=== PATIENT | female | born 1945 | race Caucasian/White ===

== ENCOUNTER → 2016-10-18 | Outpatient (CLI) | payer MEDICARE ==
[~2016-10-18] MED LIST: AGRYLIN0.5 MG PO; AGRYLIN1 MG PO; ALBUTEROL2.5 MG/0.5 INH; ALBUTEROL2.5 MG/0.5 NEB; ALPRAZOLAM0.25 M2 PO; ASMANEX TW0.22 MG/A1 IH; ASPIRIN ADULT L81 M1 PO; ASPIRIN81 M1 PO; ASPIRIN81 MG PO; ATARAX25 MG PO; AZO-SULFISOXAZO1 TA1 PO; B-1100 MG PO; BACTRIM 400 MG-1 TAB PO; CEFTIN250 MG PO; COREG3.125 MG PO; DEEP SEA 45 ML45 ML NAS; DELTASONE5 MG PO; DUONEB 3 MG/3 ML3 M1 INH; DYAZIDE 25 MG-31 CAP PO; FUROSEMIDE40 MG PO; HYDROCO/APAP TAB 5-3; KLOR-CON 1010 MEQ PO; LIPITOR40 MG PO; LISINOPRIL2.5 MG PO; LORADAMED10 MG PO; MUCINEX ER600 MG PO; MUCINEX600 MG PO; MULTIPLE VITAMI1 CAP PO; NATURE'S BLEND F1 MG PO; NEBULIZER; NORCO 5-325 TA1 EACH PO; OXYGEN NAS; PERCOCET 325 MG1 TA2 PO; PREDNISONE10 MG PO; PREDNISONE20 MG PO; PROTONIX TR40 MG PO; SINGULAIR10 MG PO; THIAMINE100 MG PO; VICODIN 5/500 505 MG PO; VICODIN 500 MG-1 TAB PO; ZOLOFT25 MG PO; [UNRECOGNIZED DRUG - REMARK]
[2016-10-18 07:58] LABS: ALBUMIN 3.5 gm/dl (3.1-4.5); PHOSPHOROUS 3.7 mg/dL (2.5-4.9); POTASSIUM 4.5 mmol/L (3.5-5.1)
== END | disposition home or self-care (01) ==
LOC: LAB 07:08
PROVIDERS: Internal Medicine Nephrology
DX: N18.9 Chronic kidney disease, unspecified (principal)

== ENCOUNTER → 2016-10-21 | Outpatient (CLI) | payer MEDICARE ==
[2016-10-21 08:12] LABS: ALBUMIN 3.9 gm/dl (3.1-4.5); PHOSPHOROUS 4.9 mg/dL (2.5-4.9); POTASSIUM 4.8 mmol/L (3.5-5.1)
== END | disposition home or self-care (01) ==
LOC: LAB 01:25
PROVIDERS: Internal Medicine Nephrology
DX: N18.9 Chronic kidney disease, unspecified (principal)

== ENCOUNTER → 2016-10-25 | Outpatient (CLI) | payer MEDICARE ==
[2016-10-25 07:50] LABS: ALBUMIN 3.9 gm/dl (3.1-4.5); PHOSPHOROUS 3.8 mg/dL (2.5-4.9); POTASSIUM 5.9 mmol/L (3.5-5.1)
== END | disposition home or self-care (01) ==
LOC: LAB 00:58
PROVIDERS: Internal Medicine Nephrology
DX: N18.9 Chronic kidney disease, unspecified (principal)

== ENCOUNTER 2016-10-27 12:49 | Inpatient (IN) | payer MEDICARE ==
[~2016-10-27] VITALS: Ht 152.4 cm; Wt 56.8 kg
--- NOTE | ~2016-10-27 | PR ---
[place], [place] PROGRESS NOTE NAME: [id number] UNIT #: [id number] ROOM: 505 DOCTOR: OSMANI RIVAS MD,ARASH BIRTHDATE: [birth year] DOS: 10/29/2016 SUBJECTIVE: She has been noted more comfortable at this time with reduction of symptoms of shortness of breath and cough. There were no symptoms of chest pain or any abdominal pain. CBC that was repeated yesterday still shows severe leukopenia. OBJECTIVE: VITAL SIGNS: The temperature noted normal, respiratory rate 18, heart rate of 87, blood pressure 126/50. Her pulse oxygen saturation on 3 liters nasal cannula 99% saturation recorded. HEENT: Shows no acute change. NECK: Supple. CARDIOVASCULAR SYSTEM: S1, S2 audible. LUNGS: Noted without any crackles. Expiratory wheezing was present. ABDOMEN: Soft, nontender. LABORATORY DATA: The patient's sputum culture of the patient, preliminary showing normal zion, final culture results were pending. Renal function panel: BUN 51, creatinine 1.87, glucose 160, CO2 of 19. CBC this morning, WBC count 4.4, hemoglobin 7.9, hematocrit of 25.9 with platelet count elevated to 543,000. IMPRESSION: 1. The patient with reduction of the leukopenia was noted still noted with anemia. 2. Acute exacerbation of chronic obstructive pulmonary disease, acute tracheobronchitis. PLAN OF TREATMENT: Monitoring for the leukopenia which is most likely induced by the infection. Monitor respiratory status closely. Other supportive plan of management as in progress. Continue the current dose of corticosteroids. ARASH KEEN MD CM:PNTRANS [id number] ARASH RIVAS MD 10/29/16 1442 interface
--- NOTE | ~2016-10-27 | PR ---
[place], [place] PROGRESS NOTE NAME: JULIANE AMEZCUA UNIT #: [id number] ROOM: 505 DOCTOR: ARASH TELLO MD BIRTHDATE: [birth year] DOS: 10/30/2016 SUBJECTIVE: The patient has been noted comfortable at this time without any distress. She has been noted without any symptoms of chest pain or any abdominal pain. All the respiratory symptoms, which have been noted significantly improved in the past couple of days. OBJECTIVE: VITAL SIGNS: For the patient which has been recorded showed the temperature of the patient recorded as normal. The heart rate for this patient was noted as heart rate of 77, blood pressure 138/50. The pulse oxygen saturation of the patient recorded on 3 liters nasal cannula 96% saturation. HEENT: Shows no new change. NECK: Supple. CARDIOVASCULAR SYSTEM: S1, S2 is audible. LUNGS: The patient was noted without any wheezing or crackles. ABDOMEN: Soft, nontender. LABORATORY DATA: CBC of this morning, hemoglobin 9.9, hematocrit 31.3, platelet count 589,000, normal WBC count. BMP: BUN 59, creatinine 1.70. Culture of the sputum the patient was noted as normal zion. IMPRESSION: 1. Progressive resolution of the acute exacerbation of chronic obstructive pulmonary disease for this patient as well. 2. Resolved leukopenia as well. 3. Anemia with current blood transfusion for this patient as well. 4. The patient with resolving acute kidney injury, gradually as well. PLAN OF TREATMENT: From the pulmonary standpoint, the patient could be considered for home discharge on oral medications. Solu-Medrol dose will be decreased to Solu-Medrol 40 mg daily dosing. Continue other previous treatment plan of management. Usual care. Other supportive care and therapies. [place], [place] PROGRESS NOTE NAME: JULIANE AMEZCUA UNIT #: [id number] ROOM: 505 DOCTOR: ARASH TELLO MD BIRTHDATE: [birth year] ARASH KEEN MD CM:PNTRANS 1223 ARASH RIVAS MD 10/30/16 2212 interface
--- NOTE | ~2016-10-27 | CON ---
[place], [place] REPORT OF CONSULTATION NAME: JULIANE AMEZCUA [facility] #: [id number] UNIT #: [id number] ROOM: 505 DOCTOR: TAWANDA MADDEN MD BIRTHDATE: [birth year] DOS: 10/28/16 REPORT TO THE SCIENTIFIC DIRECTOR HISTORY OF PRESENT ILLNESS: The patient is a 71-year-old [place] woman presented to the emergency room because of increasing coughing and shortness of breath, which has been going on for the past 2 days. She had thickened, greasy, yellowish sputum and subsequently admitted. On routine CBC examination, she was found to be leukopenic, anemic and thrombocytosis and consulted for further evaluation and management. PAST MEDICAL HISTORY: Significant for history of centrilobular emphysema, history of bacterial pneumonia, chronic kidney disease stage 4-5, diverticulosis, generalized anxiety disorder, history of bronchial asthma. PAST SURGICAL HISTORY: D and C, tubal ligation, appendectomy, partial sigmoid colectomy, right knee replacement, left cataract extraction, dialysis catheter insertion, MediPort has been placed in the right chest. SOCIAL HISTORY: , has 4 children. smoking since teenager, 1 packet of cigarettes per day. Denies any drug abuse or alcohol. FAMILY HISTORY: Positive for aneurysm, cancer. MEDICATIONS: Aspirin, Lipitor, Singulair, Dulera, Mucinex, IV Solu-Medrol, Coreg, Levaquin. ALLERGIES: No allergies. REVIEW OF SYSTEMS: CONSTITUTIONAL: No chills. No fatigue. No fever. No loss of appetite. No night sweats. No weakness. No weight loss. HEENT: No trouble swallowing. No loss of smell. No loss of hearing. No double vision. No pain. No discharge. ENT AND RESPIRATORY: No wheeze. No sore throat. No change in voice. No hearing loss. No nose bleed. No cough. No trouble breathing through nose. No shortness of breath. No coughing up blood. No epistaxis. CARDIOVASCULAR: No chest pain. No dizziness. No irregular heartbeat. No leg edema. No pain in legs while walking. No palpitations. No shortness of breath. DERMATOLOGIC: No acne. No hives. No laceration. No mole. No rash. ENDOCRINE: No cold intolerance. No diabetes. No fatigue. No hot flashes. No polydipsia. No polyuria. No urinating frequently. No weight loss. HEMATOLOGIC AND LYMPH: No fatigue. No easy bruising. GASTROENTEROLOGIC: No change in bowel habits. No indigestion. No frequent bloating. No vomiting blood. No abdominal cramping. No nausea. No heartburn. No vomiting. No abdominal pain. No dysphagia. No diarrhea. No constipation. No blood in stool. FEMALE REPRODUCTIVE: No vaginal itching. No difficulty urinating. No heavy periods. No dyspareunia. No sexually active. No dysmenorrhea. No pelvic pain. [place], [place] REPORT OF CONSULTATION NAME: JULIANE AMEZCUA UNIT #: [id number] ROOM: [facility] DOCTOR: TAWANDA MADDEN MD BIRTHDATE: [birth year] No breast pain. No nipple discharge. No abnormal vaginal discharge. No hot flashes. MUSCULOSKELETAL: No back pain. No muscle pain or weakness. No neck pain. No tingling/numbness. No swelling/bruising. No osteoporosis treatment. OPHTHALMOLOGIC: No double vision. No diminished vision. No loss of vision. UROLOGIC: No dysuria. No frequent nighttime urination. No irregular periods. No pain with urination. No difficulty urinating. No blood in urine. No frequent urination. No urinary incontinence. NEUROLOGIC: No loss of sensation in specific body area. No vertigo. No burning pain in feet. No trouble with balance. No trouble with coordination. No loss of consciousness. No loss of feeling/power. No confusion. No headache. No tingling/numbness. PSYCHOLOGIC: No tinnitus. No headaches. No shortness of breath. No weight decrease. No nausea. No vomiting. No abdominal discomfort. No constipation. No diarrhea. No depression. No anxiety. PHYSICAL EXAMINATION: GENERAL: Pleasant woman in no apparent distress. VITAL SIGNS: Stable. She is afebrile. HEENT: Oral mucosa appears intact. The external ears are normal in appearance. Nares are patent without lesions, exudates, erythema, or inflammation. Tongue is symmetrical. Uvula is midline. NECK AND THYROID: Neck supple without palpable masses. Trachea is midline. No thyromegaly. No carotid bruit or JVD. BREASTS: Normal. Nipples unremarkable. No drainage. No lumps felt on either side. HEART: Normal S1, S2, without significant murmur, rub, or gallop. LUNGS: Show bilateral expiratory wheeze.. ABDOMEN: No costovertebral angle tenderness. Soft. No organomegaly or masses. Nontender. No hernias present. Liver and spleen are not palpable. LYMPHATIC: No adenopathy noted in the cervical, supraclavicular, axillary, or inguinal regions. NEUROLOGIC: Nonfocal. Oriented to person, place, and time. MENTAL STATUS: Appropriate for mood and affect. PERIPHERAL PULSES: No varicosities. Femoral and pedal pulses are palpable. EXTREMITIES: Without cyanosis, clubbing, or edema. No gross anomalies. LABORATORY DATA: White count of 4.4, hemoglobin 7.9, hematocrit 25.9, MCV 104.9, platelet count of 543,000. From 10/28/2016, white count of 1.6, hemoglobin 8.2, hematocrit 27.0, MCV 104.2. ASSESSMENT: 1. Leukopenia is resolving, could be secondary to medications/sepsis/bone marrow suppression. 2. Anemia of unknown etiology, probably chronic disease. 3. Thrombocytosis, reactive. 4. Macrocytosis. PLAN: I had detailed discussion with the patient about different causes of above. We will go ahead and do workup for that with peripheral smears. I [place], [place] REPORT OF CONSULTATION NAME: JULIANE AMEZCUA UNIT #: [id number] ROOM: [facility] DOCTOR: TAWANDA MADDEN MD BIRTHDATE: [birth year] expect the platelet count to get better once her overall condition improves. If not, then further intervention and depending upon the workup, further intervention. Will be also giving her a unit of blood. Ample time was given to the patient to ask me questions and follow. Thanks for consulting and letting me participate in the care of this interesting patient. TAWANDA MADDEN MD CM:CONSTR:REPORT OF CONSULTATION 1429 BED 10/30/16 1234 ISHAN ACOSTA [facility].BED
--- NOTE | ~2016-10-27 | PR ---
[place], [place] PROGRESS NOTE NAME: JULIANE AMEZCUA [facility] #: [id number] UNIT #: [id number] ROOM: 505 DOCTOR: TAWANDA MADDEN MD BIRTHDATE: [birth year] DOS: 10/29/2016 SUBJECTIVE: The patient is doing better. Awake, alert and responsive. REVIEW OF SYSTEMS HEENT: No trouble swallowing. No double vision. No loss of vision. No pain. ENT AND RESPIRATORY: No wheeze. No change in voice. No cough. No shortness of breath. No coughing up blood. No epistaxis. CARDIOLOGIC: No chest pain. No dizziness. No irregular heartbeat. No leg edema. No palpitations. No shortness of breath. HEMATOLOGIC AND LYMPH: No past transfusion. No fatigue. No loss of appetite. No easy bruising. GASTROENTEROLOGIC: No change in bowel habits. No vomiting blood. No abdominal cramping. No nausea. No vomiting. No diarrhea. No constipation. No blood in stool. FEMALE REPRODUCTIVE: No dyspareunia. No pelvic pain. MUSCULOSKELETAL: No back pain. No muscle pain or weakness. No tingling/numbness. UROLOGIC: No pain with urination. No difficulty urinating. No frequent urination. NEUROLOGIC: No burning pain in feet. No trouble with coordination. No loss of consciousness. No headache. No tingling/numbness. No memory loss. PHYSICAL EXAMINATION: GENERAL: Pleasant woman in no apparent distress. VITAL SIGNS: Blood pressure 143/59, respirations 18, pulse 86, temperature 98.4. HEENT: Normocephalic, atraumatic NECK AND THYROID: Supple. No JVD, thyromegaly, or lymphadenopathy. HEART: Normal S1, S2. Regular rate and rhythm. LUNGS: Clear to auscultation and percussion. ABDOMEN: Soft. Nontender, nondistended. Bowel sounds present. EXTREMITIES: Normal ROM. No clubbing. No edema. LABORATORY DATA: White count of 4.4, hemoglobin 7.9, hematocrit 25.9, MCV 104.9, platelet count of 543. IMPRESSION: 1. Neutropenia, which is getting better. 2. Anemia, probably of chronic disease. 3. Thrombocytosis, probably reactive. PLAN: We will give a unit of packed RBC. In addition keep watch her platelet count. If she continues to increase then further intervention, otherwise close followup. Ample time was given for the patient to ask me questions. [place], [place] PROGRESS NOTE NAME: DELANEY AMEZCUAVELIA Fong UNIT #: [id number] ROOM: 505 DOCTOR: TAWANDA MADDEN MD BIRTHDATE: [birth year] TAWANDA MADDEN MD CM:PNTRANS 1 TAWANDA MADDEN MD 10/31/16 0943 interface
--- NOTE | ~2016-10-27 | CON ---
[place], [place] REPORT OF CONSULTATION NAME: JULIANE AMEZCUA [facility] #: [id number] UNIT #: [id number] ROOM: 505 DOCTOR: ARASH TELLO MD BIRTHDATE: [birth year] DOS: 10/28/2016 CONSULTATION REQUESTED BY: Hospitalist services. REASON FOR CONSULTATION: To assess the patient for symptoms of increased shortness of breath. HISTORY OF PRESENT ILLNESS: A 71-year-old white female who has been admitted to the hospital. The patient came into the Emergency Room when she started with symptoms of increased coughing, which has been present for the past few days. The symptoms have been noted ____ sputum expectoration, green to yellowish in color, and thick at times. The patient denies symptoms of chest pain. Denies symptoms of hemoptysis. The patient has been noted with intermittent hemodialysis, which has been given based on the kidney functions as per the patient. The patient denies any symptoms of chest trauma. REVIEW OF SYSTEMS: CONSTITUTIONAL: Fatigue and tiredness described. No symptoms of fever or chills. EYES: Denies any burning, redness, or tenderness. EARS, NOSE, AND THROAT: No sore throat, hoarseness, otalgia, postnasal drainage. CARDIOVASCULAR: Denies anginal pain, edema, or pain of the lower extremities. GASTROINTESTINAL: Denies dysphagia, nausea, vomiting, diarrhea, abdominal pain, hematemesis, melena, or hematochezia. GENITOURINARY: The patient with chronic kidney disease for the patient with intermittent hemodialysis provided as per patient based on kidney function assessment. She has not received any hemodialysis for the past couple of weeks as it was needed as per patient. She denies symptoms of suprapubic pain or hematuria. MUSCULOSKELETAL: Denies any acute joint pain, redness, or tenderness. SKIN: No lesions or rashes. CENTRAL NERVOUS SYSTEM: Denies dizziness, headache, diplopia, syncopal episodes, or tingling sensation of the extremities. Remaining systems were reviewed with the patient, they were noted all negative. PAST MEDICAL HISTORY: 1. Past hospitalization for the patient noted in April 2016. The patient was admitted at this time and treated for the right pleural fluid with acute bacterial pneumonia as well as acute kidney injury with history of chronic kidney disease. 2. History of centrilobular emphysema. 3. Chronic kidney disease, stage 4-5. 4. Diverticulosis. 5. General anxiety disorder, depression, and panic attack history. 6. Previous history of pneumonia. 7. History of bronchial asthma as well. PAST SURGICAL HISTORY: Reported: [place], [place] REPORT OF CONSULTATION NAME: JULIANE AMEZCUA UNIT #: [id number] ROOM: [facility] DOCTOR: ARASH TELLO MD BIRTHDATE: [birth year] 1. Tubal ligation. 2. D and C. 3. Appendectomy. 4. Partial sigmoid colectomy for this patient. 5. Right knee replacement. 6. Left cataract extraction. 7. Dialysis catheter insertion and removal later on. Currently, has an AV fistula for the patient of the left upper extremity. 8. MediPort in place in the right chest for this patient for peripheral venous access. SOCIAL HISTORY: The patient is , has 4 children. Smoking was noted since teenager, smoked at least a pack of cigarettes per day. Denies any alcohol or illicit drug use or any occupation related pulmonary exposure history. FAMILY HISTORY: Reported for cancer and aneurysm. MEDICATIONS: Current administered medication use noted use of aspirin, Lipitor, Singulair, Dulera, Mucinex 1200 b.i.d., IV Solu-Medrol 60 mg b.i.d., Coreg, DuoNeb, Levaquin, and other p.r.n. medications administration. DRUG ALLERGIES: Noted for no known drug allergies. PHYSICAL EXAMINATION: GENERAL: A 71-year-old female who has been currently noted awake and alert without any distress. Height of 5 feet, weight of 125 pounds, BMI 24.4. VITAL SIGNS: For the patient which has been recorded shows normal temperature, respiratory rate 18-20, heart rate of 104-92, blood pressure 140/64-120/58. Pulse oxygen saturation noted on 4 L nasal cannula 97% saturation. The intake 320, output 500 mL, negative fluid balance of ____ mL since admission. HEENT: Mild obesity. Head was atraumatic. Eyes nonicterus. NECK: Supple. CARDIOVASCULAR: S1, S2 is audible. LUNGS: For this patient was noted with moderate reduction of the breath sounds were noted bilaterally with expiratory wheezing. There were no crackles heard. ABDOMEN: Flat, soft, nontender. Bowel sounds present. CENTRAL NERVOUS SYSTEM: The patient was noted without any gross focal neurologic deficit. Cranial nerves 2-12 intact. SKIN: No lesions or rashes. LABORATORY DATA: CBC of the patient that was done on admission on 10/27/2016, hemoglobin 8.5, hematocrit 28.3, WBC count normal, platelet count mildly elevated to 515,000. Lactic acid yesterday on admission was 0.4, normal. CMP yesterday on admission, BUN 41, creatinine 1.76. Carbon dioxide 20. The CBC of the patient that was done for the patient this morning for the patient was noted with WBC count of 1.5, hemoglobin of 7.9, hematocrit 26.0, platelet count 448,000 with 48% lymphocytes and 84% segmented neutrophils. The CMP of patient that was done this morning, BUN 45, creatinine 1.92. Carbon dioxide 20. The troponin for the patient was noted yesterday as normal. Urinalysis for the [place], [place] REPORT OF CONSULTATION NAME: JULIANE AMEZCUA UNIT #: [id number] ROOM: [facility] DOCTOR: OSMANI RIVAS MD,[facility] BIRTHDATE: [birth year] patient from yesterday was essentially noted a benign finding. Chest x-ray of the patient, 1 view, which was done for this patient on admission shows MediPort in place for the venous access without any acute pulmonary infiltration. IMPRESSION: 1. The patient who has been noted with acute exacerbation of chronic obstructive pulmonary disease with acute tracheobronchitis as well with progressive symptoms in the last few days. 2. Leukopenia for this patient, which was noted essentially as well as anemia for this patient, etiology unclear, rule out lab error as well. The leukopenia if truly noted may be related to the current viral or bacterial infection superimposed as well with bone marrow suppression. 3. The patient with chronic kidney disease for the patient, stage 4, for the patient noted with elevation of creatinine today with possible component of acute kidney injury secondary to volume depletion would be likely. 4. Poor peripheral venous access for the patient with a MediPort in place as well. 5. History of past nicotine dependence and the patient has stopped the tobacco use for the patient since 04/2016. PLAN OF TREATMENT: Repeat labs for the patient, CBC again this morning. Blood cultures have been already taken for the patient yesterday. The sputum culture was pending, which has been ordered. Bronchodilators administration. Continue current dose of Solu-Medrol for this patient with the reduction to be started from tomorrow based on improvement in the symptoms. Continue the patient on Levaquin. There was no active pneumonia noted on the current chest x-ray. Further treatment changes will be done based on the progression of the illness. Continue bronchodilators administration. Monitor kidney functions closely as well. Thanks for allowing me to participate in the care of this patient. ARASH KEEN MD CM:CONSTR:REPORT OF CONSULTATION 1118 10/28/16 1527 interface
--- NOTE | ~2016-10-27 | PR ---
[place], [place] PROGRESS NOTE NAME: JULIANE AMEZCUA [facility] #: [id number] UNIT #: [id number] ROOM: 505 DOCTOR: TAWANDA MADDEN MD BIRTHDATE: [birth year] DOS: 10/30/2016 SUBJECTIVE: The patient is doing better. She is awake, alert and responsive. REVIEW OF SYSTEMS: HEENT: No trouble swallowing. No double vision. No loss of vision. No pain. ENT AND RESPIRATORY: No wheeze. No change in voice. No cough. No shortness of breath. No coughing up blood. No epistaxis. CARDIOLOGIC: No chest pain. No dizziness. No irregular heartbeat. No leg edema. No palpitations. No shortness of breath. HEMATOLOGIC AND LYMPH: No past transfusion. No fatigue. No loss of appetite. No easy bruising. GASTROENEROLOGIC: No change in bowel habits. No vomiting blood. No abdominal cramping. No nausea. No vomiting. No diarrhea. No constipation. No blood in stool. FEMALE REPRODUCTIVE: No dyspareunia. No pelvic pain. MUSCULOSKELETAL: No back pain. No muscle pain or weakness. No tingling/numbness. UROLOGIC: No pain with urination. No difficulty urinating. No frequent urination. NEUROLOGIC: No burning pain in feet. No trouble with coordination. No loss of consciousness. No headache. No tingling/numbness. No memory loss. PHYSICAL EXAMINATION: GENERAL: She is a pleasant woman in no apparent distress. VITAL SIGNS: Stable. She is afebrile. HEENT: Normocephalic, atraumatic NECK AND THYROID: Supple. No JVD, thyromegaly, or lymphadenopathy. HEART: Normal S1, S2. Regular rate and rhythm. LUNGS: Clear to auscultation and percussion. ABDOMEN: Soft. Nontender, nondistended. Bowel sounds present. EXTREMITIES: Normal ROM. No clubbing. No edema. LABORATORY DATA: White count of 8.8, hemoglobin 9.9, hematocrit 31.3, platelet count of 589,000. ASSESSMENT: 1. Neutropenia, which has resolved. 2. Thrombocytosis, probably reactive. 3. Anemia, probably of chronic disease. PLAN: She will continue broad spectrum antibiotics management. I will keep a close watch on her counts if they start getting higher or lowered then further intervention, otherwise follow as an outpatient. Discuss with the patient in detail. [place], [place] PROGRESS NOTE NAME: JULIANE AMEZCUA Ajit UNIT #: [id number] ROOM: [facility] DOCTOR: TAWANDA MADDEN MD BIRTHDATE: [birth year] TAWANDA MADDEN MD CM:PNTRANS 1155 40 TAWANDA MADDEN MD 10/30/162041 interface
[2016-10-27 12:49] VITALS: BP 148/64
[2016-10-27 13:23] LABS: BASO % 0.3 % (0.0-1.0); EOS # 0.3 10*3/uL (0.0-0.4); EOS % 5.2 % (1.0-4.0); HEMATOCRIT 28.3 % (37.0-47.0); HEMOGLOBIN 8.5 g/dl (12.0-16.0); LYMPH # 0.7 10*3/uL (1.3-4.4); LYMPH % 10.7 % (27.0-41.0); MEAN CELL VOLUME 105.6 fl (81.0-99.0); MEAN CORPUSCULAR HGB 31.7 pg (27.0-31.0); MONO # 0.6 10*3/uL (0.1-1.0); MONO % 9.6 % (3.0-9.0); NEUT # 4.8 10*3/uL (2.3-7.9); PLATELET COUNT AUTOMATED 515 10*3/uL (130-400); RED BLOOD COUNT 2.68 10*6/uL (4.10-5.10); RED CELL DISTRI WIDTH 14.7 % (0-14.5); WHITE BLOOD COUNT 6.5 10*3/uL (4.8-10.8)
[2016-10-27 13:41] LABS: ALBUMIN 3.3 gm/dl (3.1-4.5); ALKALINE PHOSPHATASE 84 U/L (45-117); BILIRUBIN, TOTAL 0.4 mg/dl (0.2-1.0); BUN 41 mg/dl (7-24); CARBON DIOXIDE 20 mmol/L (21-32); CHLORIDE 109 mmol/L (98-107); EST GLOM FILT AFRICAN AMERICAN 35 ml/min; GLUCOSE 84 mg/dL (65-99); MAGNESIUM 1.7 mg/dL (1.5-2.1); POTASSIUM 4.7 mmol/L (3.5-5.1); SGOT/AST 20 IU/L (3-35); SGPT/ALT 25 U/L (12-78); SODIUM 141 mmol/L (136-145); TOTAL PROTEIN 6.2 gm/dL (6.4-8.2)
[2016-10-27 13:46] LABS: TROPONIN I < 0.015 ng/ml (<0.045)
[2016-10-27 14:28] VITALS: BP 142/84
[2016-10-27 14:58] VITALS: BP 130/54
[2016-10-27 15:55] VITALS: BP 133/41
[2016-10-27 20:00] VITALS: BP 121/43
[2016-10-27 20:38] LABS: BILIRUBIN NEGATIVE (NEGATIVE); BLOOD NEGATIVE (NEGATIVE); CLARITY CLEAR (CLEAR); COLOR YELLOW (YELLOW); GLUCOSE NEGATIVE (NEGATIVE); KETONE NEGATIVE (NEGATIVE); LEUKO ESTERASE NEGATIVE (NEGATIVE); NITRITE NEGATIVE (NEGATIVE); PROTEIN TRACE (NEGATIVE); UROBILINOGEN 0.2 E.U./dl (0.2-1.0)
[2016-10-27 20:51] LABS: MUCOUS TRACE; RBC 0-2 rbc/hpf (0-2); URINE REFLEX COMMENT NO (NO)
[2016-10-28] VITALS: BP 120/58
[2016-10-28 06:28] LABS: HEMOGLOBIN 7.9 g/dl (12.0-16.0); MEAN CELL VOLUME 106.1 fl (81.0-99.0); MEAN CORPUSCULAR HGB 32.2 pg (27.0-31.0); MEAN CORPUSCULAR HGB CONC 30.4 g/dl (33.0-37.0); MEAN PLATELET VOLUME 10.4 fl (9.6-12.3); PLATELET COUNT AUTOMATED 448 10*3/uL (130-400); RED BLOOD COUNT 2.45 10*6/uL (4.10-5.10); RED CELL DISTRI WIDTH 14.8 % (0-14.5)
[2016-10-28 06:40] LABS: ALBUMIN 2.9 gm/dl (3.1-4.5); BILIRUBIN, TOTAL 0.4 mg/dl (0.2-1.0); POTASSIUM 4.7 mmol/L (3.5-5.1)
[2016-10-28 06:48] LABS: THYROID STIM HORMONE (HS) 0.657 uIU/ml (0.358-4.75)
[2016-10-28 06:53] LABS: HYPOCHROMIA MODERATE; LYMPHOCYTE # 0.2 10*3/uL (1.3-4.4); METAMYELOCYTES 1 % (0-0); NEUTROPHIL # 1.3 10*3/uL (2.3-7.9); NEUTROPHILS 84 % (47-73); OVALOCYTES MODERATE; PLATELET SUFFICIENCY HIGH (NORMAL); SCHISTOCYTES FEW; TEAR DROP CELLS FEW; TOTAL CELLS COUNTED 100 #CELLS
[2016-10-28 06:55] LABS: WHITE BLOOD COUNT 1.5 10*3/uL (4.8-10.8)
[2016-10-28 07:22] LABS: HEMOGLOBIN A1c 5.6 % (4.8-5.6)
[2016-10-28 08:00] VITALS: BP 142/78; BP 148/78
[2016-10-28 12:00] VITALS: BP 117/84
[2016-10-28 12:10] LABS: HEMOGLOBIN 8.2 g/dl (12.0-16.0); MEAN CELL VOLUME 104.2 fl (81.0-99.0); MEAN CORPUSCULAR HGB 31.7 pg (27.0-31.0); MEAN CORPUSCULAR HGB CONC 30.4 g/dl (33.0-37.0); MEAN PLATELET VOLUME 10.1 fl (9.6-12.3); PLATELET COUNT AUTOMATED 508 10*3/uL (130-400); RED BLOOD COUNT 2.59 10*6/uL (4.10-5.10); RED CELL DISTRI WIDTH 14.6 % (0-14.5)
[2016-10-28 12:33] LABS: LYMPHOCYTE # 0.2 10*3/uL (1.3-4.4); METAMYELOCYTES 1 % (0-0); NEUTROPHIL # 1.3 10*3/uL (2.3-7.9); NEUTROPHILS 81 % (47-73); TOTAL CELLS COUNTED 100 #CELLS
[2016-10-28 12:34] LABS: OVALOCYTES MODERATE; PLATELET SUFFICIENCY HIGH (NORMAL); SCHISTOCYTES FEW
[2016-10-28 12:38] LABS: WHITE BLOOD COUNT 1.6 10*3/uL (4.8-10.8)
[2016-10-28 13:42] LABS: IRF 1.5 % (2.4-13.3); RET-He 31.3 pg (32.1-37.9); RETICULOCYTE % 0.52 % (0.50-2.50)
[2016-10-28 13:57] LABS: IRON 133 ug/dL (50-170); IRON SATURATION 93 %; UIBC 9 ug/dL (110-365)
[2016-10-28 16:19] VITALS: BP 121/51
[2016-10-28 20:00] VITALS: BP 142/53
[2016-10-29] VITALS (13 sets, daily range): BP systolic 113–155; BP diastolic 50–69
[2016-10-29 06:08] LABS: HEMATOCRIT 25.9 % (37.0-47.0); HEMOGLOBIN 7.9 g/dl (12.0-16.0); LYMPH # 0.2 10*3/uL (1.3-4.4); LYMPH % 5.5 % (27.0-41.0); MEAN CELL VOLUME 104.9 fl (81.0-99.0); MEAN CORPUSCULAR HGB CONC 30.5 g/dl (33.0-37.0); MEAN PLATELET VOLUME 10.5 fl (9.6-12.3); MONO # 0.2 10*3/uL (0.1-1.0); MONO % 4.3 % (3.0-9.0); PLATELET COUNT AUTOMATED 543 10*3/uL (130-400); RED BLOOD COUNT 2.47 10*6/uL (4.10-5.10); RED CELL DISTRI WIDTH 14.3 % (0-14.5); WHITE BLOOD COUNT 4.4 10*3/uL (4.8-10.8)
[2016-10-29 06:21] LABS: ALBUMIN 3.1 gm/dl (3.1-4.5); PHOSPHOROUS 3.4 mg/dL (2.5-4.9); POTASSIUM 4.7 mmol/L (3.5-5.1)
[2016-10-29 21:29] LABS: URINE CREATININE TIMED 428.4 mg/24HRS (600-1800)
[2016-10-30 06:51] LABS: POTASSIUM 5.4 mmol/L (3.5-5.1)
[2016-10-30 06:56] LABS: HEMATOCRIT 31.3 % (37.0-47.0); HEMOGLOBIN 9.9 g/dl (12.0-16.0); MEAN CELL VOLUME 89.9 fl (81.0-99.0); MEAN CORPUSCULAR HGB 28.4 pg (27.0-31.0); MEAN CORPUSCULAR HGB CONC 31.6 g/dl (33.0-37.0); MEAN PLATELET VOLUME 10.3 fl (9.6-12.3); PLATELET COUNT AUTOMATED 589 10*3/uL (130-400); RED BLOOD COUNT 3.48 10*6/uL (4.10-5.10); WHITE BLOOD COUNT 8.8 10*3/uL (4.8-10.8)
[2016-10-30 07:30] LABS: LYMPHOCYTE # 0.2 10*3/uL (1.3-4.4); MONOCYTE # 0.1 10*3/uL (0.1-1.0); NEUTROPHIL # 8.5 10*3/uL (2.3-7.9); NEUTROPHILS 97 % (47-73); TOTAL CELLS COUNTED 100 #CELLS
[2016-10-30 07:31] LABS: OVALOCYTES FEW; TEAR DROP CELLS FEW
[2016-10-30 07:33] LABS: ACANTHOCYTES FEW
[2016-10-30 07:35] LABS: BURR CELLS FEW
[2016-10-30 07:36] LABS: HYPOCHROMIA SLIGHT; PLATELET SUFFICIENCY HIGH (NORMAL)
[2016-10-30 08:00] VITALS: BP 138/50
[2016-10-30 12:00] VITALS: BP 120/46
[2016-10-30] MEDS ORDERED: MUCINEX ER600 MG PO (12:01)
[2016-10-30] MEDS ORDERED: PREDNISONE10 MG PO (12:01)
[2016-10-30] MEDS ORDERED: LEVAQUIN500 M2 PO (12:01)
[2016-10-30] MEDS ORDERED: LASIX40 MG PO (12:50)
[2016-10-30 16:00] VITALS: BP 140/57
== END 2016-10-30 18:59 | disposition home or self-care (01) | DRG 193 ==
LOC: ED 12:49 → EDHOLD 14:20 → 5E 14:20
PROVIDERS: Emergency Medicine; Family Medicine Adult Medicine; Internal Medicine; Internal Medicine Critical Care Medicine; Internal Medicine Hematology & Oncology; Internal Medicine Nephrology; Student in an Organized Health Care Education/Training Program
PROC: 30243N1 Transfusion of Nonautologous Red Blood Cells into Central Vein, Percutaneous Approach (ICD-10-PCS; principal; 2016-10-29)
DX: J18.9 Pneumonia, unspecified organism (principal); J96.21 Acute and chronic respiratory failure with hypoxia; N17.9 Acute kidney failure, unspecified; E87.2 Acidosis; N18.6 End stage renal disease; I12.0 Hypertensive chronic kidney disease with stage 5 chronic kidney disease or end stage renal disease; J44.0 Chronic obstructive pulmonary disease with (acute) lower respiratory infection; J44.1 Chronic obstructive pulmonary disease with (acute) exacerbation; Z99.81 Dependence on supplemental oxygen; E87.5 Hyperkalemia; J45.909 Unspecified asthma, uncomplicated; D50.9 Iron deficiency anemia, unspecified; K57.90 Diverticulosis of intestine, part unspecified, without perforation or abscess without bleeding; F41.8 Other specified anxiety disorders; J20.9 Acute bronchitis, unspecified; D47.3 Essential (hemorrhagic) thrombocythemia; E78.5 Hyperlipidemia, unspecified; Z96.651 Presence of right artificial knee joint; Z87.01 Personal history of pneumonia (recurrent); Z98.51 Tubal ligation status; Z98.49 Cataract extraction status, unspecified eye; Z80.1 Family history of malignant neoplasm of trachea, bronchus and lung; Z79.82 Long term (current) use of aspirin; Z79.899 Other long term (current) drug therapy

== ENCOUNTER → 2016-11-04 | Outpatient (CLI) | payer MEDICARE ==
[~2016-11-04] MED LIST changes: +LASIX40 MG PO; +LEVAQUIN500 M2 PO
[2016-11-04 12:03] LABS: ALBUMIN 3.9 gm/dl (3.1-4.5); PHOSPHOROUS 4.4 mg/dL (2.5-4.9)
== END | disposition home or self-care (01) ==
LOC: LAB 10:42
PROVIDERS: Internal Medicine Nephrology
DX: N17.9 Acute kidney failure, unspecified (principal)

== ENCOUNTER → 2016-11-11 | Outpatient (CLI) | payer MEDICARE ==
[2016-11-11 09:39] LABS: POTASSIUM 3.5 mmol/L (3.5-5.1)
[2016-11-11 09:48] LABS: ALBUMIN 3.7 gm/dl (3.1-4.5); PHOSPHOROUS 5.3 mg/dL (2.5-4.9)
== END | disposition home or self-care (01) ==
LOC: LAB 01:51
PROVIDERS: Internal Medicine Nephrology
DX: N17.9 Acute kidney failure, unspecified (principal)

== ENCOUNTER → 2016-12-02 | Outpatient (CLI) | payer MEDICARE ==
[~2016-12-02] MED LIST changes: +SODIUM BICARBO650 MG PO
[2016-12-02 14:11] LABS: PHOSPHOROUS 3.3 mg/dL (2.5-4.9); POTASSIUM 3.9 mmol/L (3.5-5.1)
[2016-12-02 14:26] LABS: ALBUMIN 3.3 gm/dl (3.1-4.5)
== END | disposition home or self-care (01) ==
LOC: LAB 13:16
PROVIDERS: Internal Medicine Nephrology
DX: N18.4 Chronic kidney disease, stage 4 (severe) (principal)

== ENCOUNTER → 2017-01-02 | Outpatient (CLI) | payer MEDICARE ==
[2017-01-02 11:04] LABS: BASO % 0.6 % (0.0-1.0); EOS # 0.3 10*3/uL (0.0-0.4); EOS % 4.5 % (1.0-4.0); HEMATOCRIT 26.2 % (37.0-47.0); HEMOGLOBIN 8.1 g/dl (12.0-16.0); LYMPH # 1.3 10*3/uL (1.3-4.4); LYMPH % 19.6 % (27.0-41.0); MEAN CELL VOLUME 89.7 fl (81.0-99.0); MEAN CORPUSCULAR HGB 27.7 pg (27.0-31.0); MEAN CORPUSCULAR HGB CONC 30.9 g/dl (33.0-37.0); MEAN PLATELET VOLUME 10.5 fl (9.6-12.3); MONO # 0.6 10*3/uL (0.1-1.0); MONO % 8.4 % (3.0-9.0); NEUT # 4.5 10*3/uL (2.3-7.9); NEUT % 66.6 % (47.0-73.0); PLATELET COUNT AUTOMATED 612 10*3/uL (130-400); RED BLOOD COUNT 2.92 10*6/uL (4.10-5.10); RED CELL DISTRI WIDTH 21.2 % (0-14.5); WHITE BLOOD COUNT 6.8 10*3/uL (4.8-10.8)
[2017-01-02 11:36] LABS: ALBUMIN 4.1 gm/dl (3.1-4.5); MAGNESIUM 2.4 mg/dL (1.5-2.1); PHOSPHOROUS 3.2 mg/dL (2.5-4.9); POTASSIUM 4.4 mmol/L (3.5-5.1)
[2017-01-02 11:48] LABS: PTH INTACT 303.6 pg/mL (14.0-72.0)
[2017-01-02 12:15] LABS: FERRITIN 2169.3 ng/mL (10.0-291.0)
[2017-01-02 14:02] LABS: BILIRUBIN NEGATIVE (NEGATIVE); BLOOD NEGATIVE (NEGATIVE); CLARITY SL CLOUDY (CLEAR); COLOR YELLOW (YELLOW); GLUCOSE NEGATIVE (NEGATIVE); KETONE NEGATIVE (NEGATIVE); LEUKO ESTERASE TRACE (NEGATIVE); NITRITE NEGATIVE (NEGATIVE); PROTEIN NEGATIVE (NEGATIVE); SPECIFIC GRAVITY <= 1.005 (1.005-1.030); UROBILINOGEN 0.2 E.U./dl (0.2-1.0)
[2017-01-02 14:09] LABS: RBC 0-2 rbc/hpf (0-2)
[2017-01-02 14:10] LABS: BACTERIA 2+; URINE REFLEX COMMENT YES (NO)
[2017-01-02 14:10] LABS: URINE TP/CRE RATIO 0.2 (<0.21)
== END | disposition home or self-care (01) ==
LOC: LAB 10:14
PROVIDERS: Internal Medicine Nephrology
DX: N18.4 Chronic kidney disease, stage 4 (severe) (principal); D63.1 Anemia in chronic kidney disease; N25.81 Secondary hyperparathyroidism of renal origin; Z79.899 Other long term (current) drug therapy

== ENCOUNTER 2017-02-10 11:45 | Inpatient (IN) | payer MEDICARE ==
[2017-02-10] VITALS (15 sets, daily range): BP systolic 98–132; BP diastolic 33–60
[~2017-02-10] VITALS: Ht 152.4 cm; Wt 56.2 kg
[2017-02-10] MEDS ORDERED: VITAMIN D50000 I3 PO (12:17)
[2017-02-10 13:03] LABS: MEAN CELL VOLUME 93.3 fl (81.0-99.0); MEAN CORPUSCULAR HGB CONC 31.1 g/dl (33.0-37.0); MEAN PLATELET VOLUME 10.9 fl (9.6-12.3); NUCLEATED RED BLOOD CELL 0.2 % (0.0-0.0); PLATELET COUNT AUTOMATED 640 10*3/uL (130-400); RED BLOOD COUNT 1.93 10*6/uL (4.10-5.10); RED CELL DISTRI WIDTH 21.9 % (0-14.5); WHITE BLOOD COUNT 11.1 10*3/uL (4.8-10.8)
[2017-02-10 13:06] LABS: INTERNATIONAL NORM RATIO 1.1 (2.0-3.5); PROTHROMBIN TIME 11.2 SECONDS (9.0-12.4)
[2017-02-10 13:15] LABS: ALBUMIN 3.8 gm/dl (3.1-4.5); ALKALINE PHOSPHATASE 85 U/L (45-117); BILIRUBIN, TOTAL 0.7 mg/dl (0.2-1.0); BUN 51 mg/dl (7-24); CARBON DIOXIDE 34 mmol/L (21-32); CHLORIDE 99 mmol/L (98-107); CPK 29 U/L (26-192); EST GLOM FILT AFRICAN AMERICAN 29 ml/min; GLUCOSE 137 mg/dL (65-99); MAGNESIUM 1.9 mg/dL (1.5-2.1); POTASSIUM 3.9 mmol/L (3.5-5.1); SGOT/AST 17 IU/L (3-35); SGPT/ALT 16 U/L (12-78); SODIUM 138 mmol/L (136-145); TOTAL PROTEIN 6.7 gm/dL (6.4-8.2)
[2017-02-10 13:19] LABS: CKMB < 0.5 ng/ml (0.5-3.6); TROPONIN I < 0.015 ng/ml (<0.045)
[2017-02-10 13:22] LABS: BASOPHIL # 0.1 10*3/uL (0-0.1); BASOPHILS 1 % (0-1); EOSINOPHIL # 0.2 10*3/uL (0-0.4); EOSINOPHILS 2 % (1-4); LYMPHOCYTE # 1.8 10*3/uL (1.3-4.4); MONOCYTE # 0.2 10*3/uL (0.1-1.0); NEUTROPHIL # 8.8 10*3/uL (2.3-7.9); NEUTROPHILS 79 % (47-73); PLATELET SUFFICIENCY HIGH (NORMAL); TOTAL CELLS COUNTED 100 #CELLS
[2017-02-10 13:23] LABS: OVALOCYTES FEW; TEAR DROP CELLS FEW
[2017-02-10 13:24] LABS: HEMOGLOBIN 5.6 g/dl (12.0-16.0)
[2017-02-10 23:11] LABS: HEMATOCRIT 27.9 % (37.0-47.0); MEAN CELL VOLUME 89.7 fl (81.0-99.0); MEAN CORPUSCULAR HGB 28.9 pg (27.0-31.0); MEAN CORPUSCULAR HGB CONC 32.3 g/dl (33.0-37.0); MEAN PLATELET VOLUME 11.2 fl (9.6-12.3); NUCLEATED RED BLOOD CELL 0.2 % (0.0-0.0); PLATELET COUNT AUTOMATED 561 10*3/uL (130-400); RED BLOOD COUNT 3.11 10*6/uL (4.10-5.10); RED CELL DISTRI WIDTH 19.7 % (0-14.5); WHITE BLOOD COUNT 9.2 10*3/uL (4.8-10.8)
[2017-02-10 23:30] LABS: LYMPHOCYTE # 0.3 10*3/uL (1.3-4.4); MONOCYTE # 0.1 10*3/uL (0.1-1.0); NEUTROPHIL # 8.8 10*3/uL (2.3-7.9); NEUTROPHILS 96 % (47-73); OVALOCYTES FEW; PLATELET SUFFICIENCY HIGH (NORMAL); SCHISTOCYTES FEW; TOTAL CELLS COUNTED 100 #CELLS
[2017-02-11] VITALS (11 sets, daily range): BP systolic 112–127; BP diastolic 36–55
[2017-02-11 05:54] LABS: HEMOGLOBIN A1c 5.6 % (4.8-5.6)
[2017-02-11 06:04] LABS: HEMATOCRIT 24.6 % (37.0-47.0); MEAN CELL VOLUME 88.5 fl (81.0-99.0); MEAN CORPUSCULAR HGB 28.8 pg (27.0-31.0); MEAN CORPUSCULAR HGB CONC 32.5 g/dl (33.0-37.0); MEAN PLATELET VOLUME 11.5 fl (9.6-12.3); NUCLEATED RED BLOOD CELL 0.5 % (0.0-0.0); PLATELET COUNT AUTOMATED 549 10*3/uL (130-400); RED BLOOD COUNT 2.78 10*6/uL (4.10-5.10); RED CELL DISTRI WIDTH 20.2 % (0-14.5); WHITE BLOOD COUNT 7.4 10*3/uL (4.8-10.8)
[2017-02-11 06:13] LABS: IRF 9.6 % (2.4-13.3); RET-He 30.6 pg (32.1-37.9)
[2017-02-11 06:14] LABS: ALBUMIN 3.4 gm/dl (3.1-4.5); BILIRUBIN, TOTAL 2.4 mg/dl (0.2-1.0); MAGNESIUM 1.5 mg/dL (1.5-2.1); PHOSPHOROUS 3.1 mg/dL (2.5-4.9); POTASSIUM 4.2 mmol/L (3.5-5.1)
[2017-02-11 06:17] LABS: INTERNATIONAL NORM RATIO 1.1 (2.0-3.5); PROTHROMBIN TIME 11.7 SECONDS (9.0-12.4)
[2017-02-11 06:24] LABS: FREE T4 0.86 ng/dl (0.76-1.46); THYROID STIM HORMONE (HS) 1.19 uIU/ml (0.358-4.75); TOTAL PROTEIN 6.1 gm/dL (6.4-8.2)
[2017-02-11 06:48] LABS: FOLIC ACID 5.19 ng/mL (>5.38); VITAMIN D, 25-HYDROXY 45.2 ng/mL (30-100)
[2017-02-11 06:49] LABS: FERRITIN > 1650.0 ng/mL (10.0-291.0)
[2017-02-11 06:59] LABS: HYPOCHROMIA MODERATE; LYMPHOCYTE # 0.1 10*3/uL (1.3-4.4); NEUTROPHIL # 7.3 10*3/uL (2.3-7.9); NEUTROPHILS 98 % (47-73); OVALOCYTES MODERATE; PLATELET SUFFICIENCY HIGH (NORMAL); SCHISTOCYTES FEW; TOTAL CELLS COUNTED 100 #CELLS
[2017-02-12] VITALS (9 sets, daily range): BP systolic 97–122; BP diastolic 39–71
[2017-02-12 06:05] LABS: HEMATOCRIT 27.4 % (37.0-47.0); HEMOGLOBIN 9.2 g/dl (12.0-16.0); MEAN CELL VOLUME 87.5 fl (81.0-99.0); MEAN CORPUSCULAR HGB 29.4 pg (27.0-31.0); MEAN CORPUSCULAR HGB CONC 33.6 g/dl (33.0-37.0); MEAN PLATELET VOLUME 11.4 fl (9.6-12.3); NUCLEATED RED BLOOD CELL 0.4 % (0.0-0.0); PLATELET COUNT AUTOMATED 552 10*3/uL (130-400); RED BLOOD COUNT 3.13 10*6/uL (4.10-5.10); RED CELL DISTRI WIDTH 19.6 % (0-14.5); WHITE BLOOD COUNT 11.3 10*3/uL (4.8-10.8)
[2017-02-12 06:11] LABS: TOTAL PROTEIN, SERUM 5.9 g/dL (6.0-8.5)
[2017-02-12 06:11] LABS: POTASSIUM 3.5 mmol/L (3.5-5.1)
[2017-02-12 06:31] LABS: INTERNATIONAL NORM RATIO 1.1 (2.0-3.5); PROTHROMBIN TIME 11.8 SECONDS (9.0-12.4)
[2017-02-12 07:00] LABS: MONOCYTE # 0.2 10*3/uL (0.1-1.0); NEUTROPHIL # 11.1 10*3/uL (2.3-7.9); NEUTROPHILS 98 % (47-73); TOTAL CELLS COUNTED 100 #CELLS
[2017-02-12 07:01] LABS: OVALOCYTES FEW; PLATELET SUFFICIENCY HIGH (NORMAL); POLYCHROMASIA SLIGHT
[2017-02-12 08:13] LABS: HAPTOGLOBIN 001628 114 mg/dL (34-200)
[2017-02-12 16:10] LABS: A/G RATIO 1.8 (0.7-1.7); ALBUMIN 3.8 g/dL (2.9-4.4); ALPHA-1-GLOBULIN 0.2 g/dL (0.0-0.4); BETA GLOBULIN 0.6 g/dL (0.7-1.3); GAMMA GLOBULIN 0.6 g/dL (0.4-1.8); GLOBULIN, TOTAL 2.1 g/dL (2.2-3.9); M-SPIKE Not Observed g/dL (Not Observed); PE INTERPRETATION Comment: (.)
[2017-02-12 16:10] LABS: ALBUMIN, URINE 33.8 % (.); GAMMA GLOBULIN, URINE 18.5 % (.); M-SPIKE, % Not Observed % (Not Observed); PROTEIN,TOTAL - URINE RANDOM 10.5 mg/dL (Not Estab.)
[2017-02-13] VITALS: BP 121/49
[2017-02-13 06:17] LABS: HEMATOCRIT 28.6 % (37.0-47.0); HEMOGLOBIN 9.3 g/dl (12.0-16.0); MEAN CELL VOLUME 90.2 fl (81.0-99.0); MEAN CORPUSCULAR HGB 29.3 pg (27.0-31.0); MEAN CORPUSCULAR HGB CONC 32.5 g/dl (33.0-37.0); MEAN PLATELET VOLUME 10.6 fl (9.6-12.3); NUCLEATED RED BLOOD CELL 0.2 % (0.0-0.0); PLATELET COUNT AUTOMATED 521 10*3/uL (130-400); RED BLOOD COUNT 3.17 10*6/uL (4.10-5.10); RED CELL DISTRI WIDTH 19.9 % (0-14.5); WHITE BLOOD COUNT 10.3 10*3/uL (4.8-10.8)
[2017-02-13 06:42] LABS: POTASSIUM 3.4 mmol/L (3.5-5.1)
[2017-02-13 06:49] LABS: HYPOCHROMIA SLIGHT; LYMPHOCYTE # 0.1 10*3/uL (1.3-4.4); MICROCYTOSIS SLIGHT; MONOCYTE # 0.1 10*3/uL (0.1-1.0); NEUTROPHIL # 10.1 10*3/uL (2.3-7.9); NEUTROPHILS 98 % (47-73); PLATELET SUFFICIENCY HIGH (NORMAL); TOTAL CELLS COUNTED 100 #CELLS
[2017-02-13 08:00] VITALS: BP 102/56
[2017-02-13] MEDS ORDERED: DOXYCYCLINE100 M3 PO (10:58)
[2017-02-13] MEDS ORDERED: PREDNISONE10 MG PO (10:59)
[2017-02-13 12:00] VITALS: BP 108/44
== END 2017-02-13 13:14 | disposition home or self-care (01) | DRG 177 ==
LOC: ED 11:45 → EDHOLD 13:51 → ICCU 13:51 → 4E 02-12 12:11
PROVIDERS: Hospitalist; Internal Medicine; Internal Medicine Hematology & Oncology; Registered Nurse
PROC: 30233N1 Transfusion of Nonautologous Red Blood Cells into Peripheral Vein, Percutaneous Approach (ICD-10-PCS; principal; 2017-02-10)
PROC: 0DB68ZX Excision of Stomach, Via Natural or Artificial Opening Endoscopic, Diagnostic (ICD-10-PCS; 2017-02-12)
PROC: 0DJD8ZZ Inspection of Lower Intestinal Tract, Via Natural or Artificial Opening Endoscopic (ICD-10-PCS; 2017-02-12)
DX: J15.6 Pneumonia due to other Gram-negative bacteria (principal); J96.21 Acute and chronic respiratory failure with hypoxia; N18.4 Chronic kidney disease, stage 4 (severe); D69.6 Thrombocytopenia, unspecified; Z99.81 Dependence on supplemental oxygen; D50.0 Iron deficiency anemia secondary to blood loss (chronic); W19.XXXA Unspecified fall, initial encounter; F17.210 Nicotine dependence, cigarettes, uncomplicated; F32.9 Major depressive disorder, single episode, unspecified; F41.9 Anxiety disorder, unspecified; I12.9 Hypertensive chronic kidney disease with stage 1 through stage 4 chronic kidney disease, or unspecified chronic kidney disease; J43.9 Emphysema, unspecified; K57.90 Diverticulosis of intestine, part unspecified, without perforation or abscess without bleeding; E78.5 Hyperlipidemia, unspecified; R73.9 Hyperglycemia, unspecified; E21.1 Secondary hyperparathyroidism, not elsewhere classified; K29.70 Gastritis, unspecified, without bleeding; K44.9 Diaphragmatic hernia without obstruction or gangrene; Y93.89 Activity, other specified; Y92.9 Unspecified place or not applicable; Z90.49 Acquired absence of other specified parts of digestive tract; Z98.51 Tubal ligation status; Z98.49 Cataract extraction status, unspecified eye; Z80.1 Family history of malignant neoplasm of trachea, bronchus and lung; Z79.82 Long term (current) use of aspirin; Z79.899 Other long term (current) drug therapy; Y99.8 Other external cause status; Z79.01 Long term (current) use of anticoagulants; Z96.651 Presence of right artificial knee joint

== ENCOUNTER → 2017-02-25 | Outpatient (CLI) | payer MEDICARE ==
[~2017-02-25] MED LIST changes: +DOXYCYCLINE100 M3 PO; +VITAMIN D50000 I3 PO
[2017-02-25 13:09] LABS: BASO % 0.1 % (0.0-1.0); EOS # 0.2 10*3/uL (0.0-0.4); EOS % 1.2 % (1.0-4.0); HEMATOCRIT 32.4 % (37.0-47.0); HEMOGLOBIN 10.2 g/dl (12.0-16.0); IG # 0.1 10*3/uL (0.0-0.1); LYMPH # 1.3 10*3/uL (1.3-4.4); MEAN CELL VOLUME 93.9 fl (81.0-99.0); MEAN CORPUSCULAR HGB 29.6 pg (27.0-31.0); MEAN CORPUSCULAR HGB CONC 31.5 g/dl (33.0-37.0); MONO # 0.7 10*3/uL (0.1-1.0); MONO % 4.6 % (3.0-9.0); NEUT # 11.9 10*3/uL (2.3-7.9); NEUT % 84.2 % (47.0-73.0); PLATELET COUNT AUTOMATED 562 10*3/uL (130-400); RED BLOOD COUNT 3.45 10*6/uL (4.10-5.10); RED CELL DISTRI WIDTH 18.2 % (0-14.5); WHITE BLOOD COUNT 14.2 10*3/uL (4.8-10.8)
== END ==
LOC: LAB 12:12
PROVIDERS: Internal Medicine Hematology & Oncology
DX: N18.6 End stage renal disease (principal); D63.1 Anemia in chronic kidney disease

== ENCOUNTER → 2017-03-24 | Outpatient (CLI) | payer MEDICARE ==
[2017-03-24 15:11] LABS: HEMATOCRIT 27.6 % (37.0-47.0); HEMOGLOBIN 8.4 g/dl (12.0-16.0); MEAN CELL VOLUME 95.5 fl (81.0-99.0); MEAN CORPUSCULAR HGB 29.1 pg (27.0-31.0); MEAN CORPUSCULAR HGB CONC 30.4 g/dl (33.0-37.0); MEAN PLATELET VOLUME 10.7 fl (9.6-12.3); NUCLEATED RED BLOOD CELL 0.2 10*3/uL (0.0-0.0); NUCLEATED RED BLOOD CELL 1.8 % (0.0-0.0); PLATELET COUNT AUTOMATED 870 10*3/uL (130-400); RED BLOOD COUNT 2.89 10*6/uL (4.10-5.10); RED CELL DISTRI WIDTH 18.8 % (0-14.5); WHITE BLOOD COUNT 9.1 10*3/uL (4.8-10.8)
[2017-03-24 15:32] LABS: LYMPHOCYTE # 1.7 10*3/uL (1.3-4.4); MONOCYTE # 0.5 10*3/uL (0.1-1.0); MYELOCYTES 2 % (0-0); NEUTROPHIL # 6.6 10*3/uL (2.3-7.9); NEUTROPHILS 73 % (47-73); PLATELET SUFFICIENCY HIGH (NORMAL); TOTAL CELLS COUNTED 100 #CELLS
[2017-03-24 15:33] LABS: HYPOCHROMIA MODERATE; OVALOCYTES MODERATE; SCHISTOCYTES FEW; TEAR DROP CELLS FEW
[2017-03-24 15:53] LABS: ALBUMIN 3.8 gm/dl (3.1-4.5); MAGNESIUM 1.9 mg/dL (1.5-2.1); POTASSIUM 3.2 mmol/L (3.5-5.1)
[2017-03-24 15:56] LABS: PHOSPHOROUS 3.5 mg/dL (2.5-4.9)
[2017-03-24 16:38] LABS: VITAMIN D, 25-HYDROXY 67.8 ng/mL (30-100)
[2017-03-24 16:39] LABS: PTH INTACT 228.8 pg/mL (14.0-72.0)
[2017-03-24 18:11] LABS: BILIRUBIN NEGATIVE (NEGATIVE); BLOOD NEGATIVE (NEGATIVE); CLARITY CLEAR (CLEAR); COLOR YELLOW (YELLOW); GLUCOSE NEGATIVE (NEGATIVE); KETONE NEGATIVE (NEGATIVE); LEUKO ESTERASE 1+ (NEGATIVE); NITRITE NEGATIVE (NEGATIVE); PROTEIN NEGATIVE (NEGATIVE); UROBILINOGEN 0.2 E.U./dl (0.2-1.0)
[2017-03-24 18:18] LABS: BACTERIA TRACE; URINE REFLEX COMMENT YES (NO); WBC 21-30 wbc/hpf (0-5)
[2017-03-24 18:21] LABS: URINE TP/CRE RATIO 0.3 (<0.21)
[2017-03-24 19:10] LABS: FERRITIN 2344.2 ng/mL (10.0-291.0)
== END | disposition home or self-care (01) ==
LOC: LAB 14:45
PROVIDERS: Internal Medicine Nephrology
DX: N18.4 Chronic kidney disease, stage 4 (severe) (principal); N25.81 Secondary hyperparathyroidism of renal origin; D63.1 Anemia in chronic kidney disease; Z79.899 Other long term (current) drug therapy

== ENCOUNTER 2017-05-12 19:34 | Inpatient (IN) | payer MEDICARE ==
[~2017-05-12] VITALS: Ht 152.4 cm; Wt 56.7 kg
--- NOTE | ~2017-05-12 | PR ---
[place], [place] PROGRESS NOTE NAME: JULIANE AMEZCUA [facility] #: [id number] UNIT #: [id number] ROOM: 521 DOCTOR: TAWANDA MADDEN MD BIRTHDATE: [birth year] DOS: 05/15/2017 SUBJECTIVE: The patient is doing better. She is awake, alert and responsive. Her second guaiac stool came out positive though the first was negative. PHYSICAL EXAMINATION GENERAL: She is a pleasant woman in no apparent distress. VITAL SIGNS: Stable. She is afebrile. HEENT: Normocephalic, atraumatic NECK AND THYROID: Supple. No JVD, thyromegaly, or lymphadenopathy. HEART: Normal S1, S2. Regular rate and rhythm. LUNGS: Clear to auscultation and percussion. ABDOMEN: Soft. Nontender, nondistended. Bowel sounds present. EXTREMITIES: Normal ROM. No clubbing. No edema. REVIEW OF SYSTEMS HEENT: No trouble swallowing. No double vision. No loss of vision. No pain. ENT AND RESPIRATORY: No wheeze. No change in voice. No cough. No shortness of breath. No coughing up blood. No epistaxis. CARDIOLOGIC: No chest pain. No dizziness. No irregular heartbeat. No leg edema. No palpitations. No shortness of breath. HEMATOLOGIC AND LYMPH: No past transfusion. No fatigue. No loss of appetite. No easy bruising. GASTROENTEROLOGIC: No change in bowel habits. No vomiting blood. No abdominal cramping. No nausea. No vomiting. No diarrhea. No constipation. No blood in stool. FEMALE REPRODUCTIVE: No dyspareunia. No pelvic pain. MUSCULOSKELETAL: No back pain. No muscle pain or weakness. No tingling/numbness. UROLOGIC: No pain with urination. No difficulty urinating. No frequent urination. NEUROLOGIC: No burning pain in feet. No trouble with coordination. No loss of consciousness. No headache. No tingling/numbness. No memory loss. LABORATORY DATA: White count of 10.6, hemoglobin 8.7, hematocrit 27.2, platelet count of 957. ASSESSMENT AND PLAN: 1. Myeloproliferative neoplasia. 2. Anemia of chronic disease. 3. Chronic kidney disease. 4. Guaiac-positive stools with anemia. PLAN: The patient probably will be getting a capsule endoscopy test. In addition, the platelets are decreasing slowly and we will continue Hydrea for now. Transfusion on p.r.n. basis and follow for now. We will wait for the capsule endoscopy results to come back and depending on that do further intervention. I had a detailed discussion with the patient about it and she seemed to understand it and time was given to the patient to ask me questions. [place], [place] PROGRESS NOTE NAME: [facility] [id number] UNIT #: [id number] ROOM: 521 DOCTOR: TAWANDA MADDEN MD BIRTHDATE: [birth year] TAWANDA MADDEN MD CM:PNTRANS 0834 2 TAWANDA MADDEN MD 05/16/17121 interface
--- NOTE | ~2017-05-12 | PR ---
[place], [place] PROGRESS NOTE NAME: JULIANE AMEZCUA [facility] #: [id number] UNIT #: [id number] ROOM: 521 DOCTOR: TAWANDA MADDEN MD BIRTHDATE: [birth year] DOS: 05/14/2017 SUBJECTIVE: The patient is doing better. She is awake, alert and responsive. REVIEW OF SYSTEMS: HEENT: No trouble swallowing. No double vision. No loss of vision. No pain. ENT AND RESPIRATORY: No wheeze. No change in voice. No cough. No shortness of breath. No coughing up blood. No epistaxis. CARDIOLOGIC: No chest pain. No dizziness. No irregular heartbeat. No leg edema. No palpitations. No shortness of breath. HEMATOLOGIC AND LYMPH: No past transfusion. No fatigue. No loss of appetite. No easy bruising. GASTROENEROLOGIC: No change in bowel habits. No vomiting blood. No abdominal cramping. No nausea. No vomiting. No diarrhea. No constipation. No blood in stool. FEMALE REPRODUCTIVE: No dyspareunia. No pelvic pain. MUSCULOSKELETAL: No back pain. No muscle pain or weakness. No tingling/numbness. UROLOGIC: No pain with urination. No difficulty urinating. No frequent urination. NEUROLOGIC: No burning pain in feet. No trouble with coordination. No loss of consciousness. No headache. No tingling/numbness. No memory loss. PHYSICAL EXAMINATION: GENERAL: She is a pleasant woman in no apparent distress. VITAL SIGNS: Blood pressure 96/50, respirations 20, pulse 80, temperature 97.8. HEENT: Normocephalic, atraumatic. NECK AND THYROID: Supple. No JVD, thyromegaly, or lymphadenopathy. HEART: Normal S1, S2. Regular rate and rhythm. LUNGS: Clear to auscultation and percussion. ABDOMEN: Soft. Nontender, nondistended. Bowel sounds present. EXTREMITIES: Normal ROM. No clubbing. No edema. LABORATORY DATA: White count of 12.6, hemoglobin 8.6, hematocrit 26.7, MCV 94.7, platelet count of 121. Sodium 139, potassium 4.3, chloride 102, bicarbonate 31, BUN 46, EGFR is 25. ASSESSMENT: 1. Myeloproliferative neoplasia. 2. Severe anemia. 3. Hypertension. 4. Status post EGD and colonoscopy done in the past, which was negative. 5. Chronic kidney disease, stage 4. PLAN: The patient was started on hydroxyurea as well as she got 2 units of packed RBC. She will be also getting a capsule endoscopy for further evaluation for her anemia, which she will be getting quite often. We will be monitoring her platelet count. Ample time was given to the patient to ask me questions. [place], [place] PROGRESS NOTE [facility] [id number] UNIT #: [id number] ROOM: 521 DOCTOR: TAWANDA MADDEN MD BIRTHDATE: [birth year] TAWANDA MADDEN MD CM:PNTRANS 1131 1548 TAWANDA MADDEN MD 05/14/17 1547 interface
--- NOTE | ~2017-05-12 | CON ---
[place], [place] REPORT OF CONSULTATION NAME: JULIANE AMEZCUA [facility] #: [id number] UNIT #: [id number] ROOM: 521 DOCTOR: TAWANDA MADDEN MD BIRTHDATE: [birth year] DOS: 05/13/2017 HISTORY OF PRESENT ILLNESS: The patient is a pleasant elderly woman who is in my office and CBC done, this showed hemoglobin 5.8. Subsequently, I called her last night to go to the Emergency Room and she was admitted for further evaluation and management. She has had previous blood transfusions. PAST MEDICAL HISTORY: Significant for essential thrombocythemia, chronic myeloproliferative disorder, frequent transfusions. EGD and colonoscopy was negative, chronic kidney disease stage 4, COPD, depression with anxiety, diverticulosis, hyperlipidemia, hypertension, O2 dependent, history of common variable immunodeficiency. PAST SURGICAL HISTORY: Dilatation and curettage, history of appendectomy, colectomy, total right knee replacement, tubal ligation, cataract surgery. SOCIAL HISTORY: No smoking, drinking, or drug abuse. FAMILY HISTORY: Father at age 52 because of brain aneurysm. Mother at age 70 of lung cancer. ALLERGIES: No allergies. MEDICATIONS: Albuterol, aspirin, atorvastatin, carvedilol, vitamin D, furosemide, ____ oxygen. REVIEW OF SYSTEMS: CONSTITUTIONAL: No chills. No fatigue. No fever. No loss of appetite. No night sweats. No weakness. No weight loss. HEENT: No trouble swallowing. No loss of smell. No loss of hearing. No double vision. No pain. No discharge. ENT AND RESPIRATORY: No wheeze. No sore throat. No change in voice. No hearing loss. No nose bleed. No cough. No trouble breathing through nose. No shortness of breath. No coughing up blood. No epistaxis. CARDIOVASCULAR: No chest pain. No dizziness. No irregular heartbeat. No leg edema. No pain in legs while walking. No palpitations. No shortness of breath. DERMATOLOGIC: No acne. No hives. No laceration. No mole. No rash. ENDOCRINE: No cold intolerance. No diabetes. No fatigue. No hot flashes. No polydipsia. No polyuria. No urinating frequently. No weight loss. HEMATOLOGIC AND LYMPH: No fatigue. No easy bruising. GASTROENTEROLOGIC: No change in bowel habits. No indigestion. No frequent bloating. No vomiting blood. No abdominal cramping. No nausea. No heartburn. No vomiting. No abdominal pain. No dysphagia. No diarrhea. No constipation. No blood in stool. FEMALE REPRODUCTIVE: No vaginal itching. No difficulty urinating. No heavy periods. No dyspareunia. No sexually active. No dysmenorrhea. No pelvic pain. No breast pain. No nipple discharge. No abnormal vaginal discharge. No hot flashes. MUSCULOSKELETAL: No back pain. No muscle pain or weakness. No neck pain. No [place], [place] REPORT OF CONSULTATION NAME[facility] [id number] UNIT #: [id number] ROOM: 521 DOCTOR: TAWANDA MADDEN MD BIRTHDATE: [birth year] tingling/numbness. No swelling/bruising. No osteoporosis treatment. OPTHALMOLOGIC: No double vision. No diminished vision. No loss of vision. UROLOGIC: No dysuria. No frequent nighttime urination. No irregular periods. No pain with urination. No difficulty urinating. No blood in urine. No frequent urination. No urinary incontinence. NEUROLOGIC: No loss of sensation in specific body area. No vertigo. No burning pain in feet. No trouble with balance. No trouble with coordination. No loss of consciousness. No loss of feeling/power. No confusion. No headache. No tingling/numbness. PSYCHOLOGIC: No tinnitus. No headaches. No shortness of breath. No weight decrease. No nausea. No vomiting. No abdominal discomfort. No constipation. No diarrhea. No depression. No anxiety. PHYSICAL EXAMINATION: GENERAL: She is a pleasant woman in no apparent distress. VITAL SIGNS: Stable. She is afebrile. HEENT: Oral mucosa appears intact. The external ears are normal in appearance. Nares are patent without lesions, exudates, erythema, or inflammation. Tongue is symmetrical. Uvula is midline. NECK AND THYROID: Neck supple without palpable masses. Trachea is midline. No thyromegaly. No carotid bruit or JVD. BREASTS: Normal. Nipples unremarkable. No drainage. No lumps felt on either side. HEART: Normal S1, S2, without significant murmur, rub, or gallop. LUNGS: Clear to auscultation and percussion with good air entry bilaterally. The patient is breathing easily without the use of accessory muscles. Diaphragmatic excursions are intact. ABDOMEN: No costovertebral angle tenderness. Soft. No organomegaly or masses. Nontender. No hernias present. Liver and spleen are not palpable. LYMPHATIC: No adenopathy noted in the cervical, supraclavicular, axillary, or inguinal regions. NEUROLGIC: Nonfocal. Oriented to person, place, and time. MENTAL STATUS: Appropriate for mood and affect. PERIPHERAL PULSES: No varicosities. Femoral and pedal pulses are palpable. EXTREMITIES: Without cyanosis, clubbing, or edema. No gross anomalies. LABORATORY DATA: White count of 13.4, hemoglobin was 6.8, hematocrit 21.5, platelet count of 1192. Peripheral smear showed monocytes. ASSESSMENT: 1. Essential thrombocythemia. 2. Severe anemia, status post patient getting transfusions with EGD and colonoscopy negative. 3. Hypertension. 4. Chronic kidney disease stage 4. PLAN: I had extensive discussion with the patient. She will be getting blood. In addition, she had upper and lower endoscopy done. She needs a capsule enteroscopy for further evaluation of GI tract. In the meantime, the patient will be started on hydroxyurea and her platelet count will be monitored very [place], [place] REPORT OF CONSULTATION NAME: JULIANE AMEZCUA UNIT #: [id number] ROOM: 521 DOCTOR: TAWANDA MADDEN MD BIRTHDATE: [birth year] closely. I had detailed discussion with the patient about it, seemed to understand. Ample time was given to the patient to ask me questions. We will follow. Thanks for consulting and letting me participate in the care of this interesting patient. TAWANDA MADDEN MD CM:CONSTR:REPORT OF CONSULTATION 0940 05/13/17 1003 interface
[2017-05-12 19:50] VITALS: BP 118/89
[2017-05-12 21:16] LABS: ACT PARTIAL THROMBO TIME 26.7 SECONDS (20.8-31.5); INTERNATIONAL NORM RATIO 1.1 (2.0-3.5)
[2017-05-12 21:20] LABS: ALBUMIN 3.2 gm/dl (3.1-4.5); CREATININE 1.78 mg/dL (0.55-1.02); POTASSIUM 4.4 mmol/L (3.5-5.1)
[2017-05-12 21:44] VITALS: BP 100/50
--- NOTE | 2017-05-12 22:45 | NUR ---
A 71, admitted to , under the services of STEVE Gutierrez DO with a diagnosis of SEVERE ANEMIA. Chief complaint is MULTIPLE COMPLAINTS. Patient arrived via wheel chair from ER. Monitor applied. Initial assessment completed. Vital signs taken and recorded. STEVE GUTIERREZ DO notified of admission to the unit. Orders received. See assessment for past medical history, medications and allergies. Patient and/or family oriented to unit. [facility]. Clothing/patient valuable form completed. QUANG DE PAZ
[2017-05-12 23:04] VITALS: BP 123/40
[2017-05-12] MEDS ORDERED: LASIX40 MG PO (23:04)
[2017-05-12] MEDS ORDERED: ALBUTEROL2.5 MG/0.5 INH (23:05)
--- NOTE | 2017-05-12 23:06 | NUR ---
PATIENT'S HOME MED REC UP TO DATE PER PATIENT RECALL/LIST FROM HOME
--- NOTE | 2017-05-12 23:42 | NUR ---
PER HERRERA CORBETT RN, DR MADDEN ALREADY NOTIFIED OF CONSULT AND STATED HE DOES NOT WANT FLUIDS RUN D/T POSSIBLE OVERLOAD..
[2017-05-13] VITALS (25 sets, daily range): BP systolic 90–119; BP diastolic 32–90
--- NOTE | 2017-05-13 00:40 | NUR ---
Informed consent obtained from patient for Blood transfussion by Dr. SMITH. Patient identified by arm band. Vital signs recorded. Blood unit number verified by 2 R.N.'s. I.V. site satisfactory. Unit 1 started at 80 ML/HR with Normal Saline. WALKER SILVERIO
[2017-05-13 04:25] LABS: HEMATOCRIT 21.5 % (37.0-47.0); HEMOGLOBIN 6.8 g/dl (12.0-16.0); MEAN CORPUSCULAR HGB 30.4 pg (27.0-31.0); MEAN CORPUSCULAR HGB CONC 31.6 g/dl (33.0-37.0); MEAN PLATELET VOLUME 10.3 fl (9.6-12.3); NUCLEATED RED BLOOD CELL 0.1 % (0.0-0.0); RED BLOOD COUNT 2.24 10*6/uL (4.10-5.10); RED CELL DISTRI WIDTH 19.8 % (0-14.5); WHITE BLOOD COUNT 13.4 10*3/uL (4.8-10.8)
[2017-05-13 04:31] LABS: PLATELET COUNT AUTOMATED 1192 10*3/uL (130-400)
[2017-05-13 04:32] LABS: ACT PARTIAL THROMBO TIME 25.5 SECONDS (20.8-31.5); INTERNATIONAL NORM RATIO 1.1 (2.0-3.5)
[2017-05-13 04:35] LABS: CREATININE 1.64 mg/dL (0.55-1.02); POTASSIUM 4.6 mmol/L (3.5-5.1)
--- NOTE | 2017-05-13 04:40 | NUR ---
CALLED DR JONES REGARDING CRITICAL LAB- PLT COUNT 1192, HGB 6.8 AND HCT 21.5 AFTER ONE UNIT OF LEUKO REDUCED RBC'S. DR JONES STATES HE WILL ORDER A SECOND UNIT OF BLOOD TO BE TRANSFUSED. SPOKE TO DR JONES ABOUT THE MEDIPORT USE, STATES WILL PUT IN ORDER FOR USEAGE.
[2017-05-13 04:46] LABS: THYROID STIM HORMONE (HS) 1.05 uIU/ml (0.358-4.75)
[2017-05-13 04:51] LABS: BASOPHILS 1 % (0-1); PLATELET SUFFICIENCY HIGH (NORMAL); TOTAL CELLS COUNTED 100 #CELLS
[2017-05-13 04:52] LABS: OVALOCYTES FEW
--- NOTE | 2017-05-13 05:24 | NUR ---
24 HR chart check completed.
--- NOTE | 2017-05-13 06:25 | NUR ---
LEUKO REDUCED BLOOD #2 STARTED AT 0615. B/P 110/49, HR 82, SPO2 100%, TEMP 98.4, RESP 18. HGB 6.8.
[2017-05-13 08:40] LABS: VITAMIN D, 25-HYDROXY 125.4 ng/mL (30-100)
--- NOTE | 2017-05-13 09:00 | NUR ---
PHYSICAL THERAPY PAtient receiving blood at this time. Thank you for this referral. Germaine Tsai,PT
--- NOTE | 2017-05-13 09:00 | NUR ---
Dispensing Optician Apprentice in to talk to patient. Patient states lives at home with boyfriend and granddaughter. There are few steps in the home. Physician: rosa tracy [facility]acy: [facility] Home health services: none Patient's level of ADLs: INDEPENDENT Patient has working utilities: all working DME: home oxygen, portable tanks, nebulizer from [facility] [place], cane Follow-up physician's appointment after d/c: will be made by hospitalist nurse director upon discharge Does patient want to access PORTAL?: no Discharge plan discussed with patient, patient lives at home with family, states she uses a cane for ambulation, is independent in adls, patient states she will be going home with able, discussed with her VNA and she refused any at this time, case management will follow. LARISA HUTTON
--- NOTE | 2017-05-13 09:54 | NUR ---
TRANSFUSION COMPLETED AT 0954. NO REACTIONS NOTED AT THIS TIME. PT TOLERATED PROCEDURE WELL.
--- NOTE | 2017-05-13 10:15 | NUR ---
PHYSICAL THERAPY PAtient requests no PT at this time. Germaine Tsai,PT
--- NOTE | 2017-05-13 11:24 | NUR ---
DR GORDON NOTIFIED OF CONSULT ON CASE. DR GORDON ORDERED A EGD AND COLO FOR 05/14/17 WITH BOWEL PREP, HOLD BLOOD THINNERS AND NPO AFTER MIDNGHT.
--- NOTE | 2017-05-13 12:52 | NUR ---
PT COMPLAINED OF PAIN, WARMTH AND EDEMA TO LUE. RN NOTIFIED DR ADRIAN. NO NEW ORDERS AT THIS TIME. RN MEDICATED PT WITH NORCO PER MD ORDER. PT STATES RELEIF OF PAIN.
[2017-05-13 12:53] LABS: HEMATOCRIT 25.8 % (37.0-47.0); HEMOGLOBIN 8.6 g/dl (12.0-16.0)
--- NOTE | 2017-05-13 14:45 | NUR ---
PHYSICAL THERAPY Pnt declined PT evaluation this pm. Will attempt again tomorrow. Saloni Castanon, PT
--- NOTE | 2017-05-13 16:17 | NUR ---
Shift chart check completed.
--- NOTE | 2017-05-13 18:36 | NUR ---
VERIFIED WITH DR. GORDON TO CANCEL EGD AND COLO ORIGINALLY SCHEDULED FOR 05/14/17.
--- NOTE | 2017-05-13 18:39 | NUR ---
DR. ADRIAN CONTACTED REGARDING HOME MEDICATIONS NOT BEING ORDERED.
--- NOTE | 2017-05-13 22:14 | NUR ---
PATIENT MEDICATED WITH PO NORCO PER PRN ORDER FOR C/O LEFT ARM PAIN 01/11. WILL MONITOR EFFECTIVENESS. CALL LIGHT LEFT IN REACH.
--- NOTE | 2017-05-13 23:29 | NUR ---
PATIENT STATES EARLIER MEDICATION WAS EFFECTIVE. WILL MONITOR. CALL LIGHT LEFT IN REACH.
[2017-05-14] VITALS: BP 118/52
[2017-05-14 06:25] LABS: HEMATOCRIT 26.7 % (37.0-47.0); HEMOGLOBIN 8.6 g/dl (12.0-16.0); MEAN CELL VOLUME 94.7 fl (81.0-99.0); MEAN CORPUSCULAR HGB 30.5 pg (27.0-31.0); MEAN CORPUSCULAR HGB CONC 32.2 g/dl (33.0-37.0); MEAN PLATELET VOLUME 10.4 fl (9.6-12.3); NUCLEATED RED BLOOD CELL 0.2 % (0.0-0.0); RED BLOOD COUNT 2.82 10*6/uL (4.10-5.10); RED CELL DISTRI WIDTH 19.5 % (0-14.5); WHITE BLOOD COUNT 12.6 10*3/uL (4.8-10.8)
[2017-05-14 06:47] LABS: BASOPHILS 3 % (0-1); TOTAL CELLS COUNTED 100 #CELLS
[2017-05-14 06:48] LABS: CREATININE 1.97 mg/dL (0.55-1.02); PLATELET SUFFICIENCY HIGH (NORMAL); POLYCHROMASIA SLIGHT; POTASSIUM 4.3 mmol/L (3.5-5.1); TOTAL PROTEIN 6.2 gm/dL (6.4-8.2)
[2017-05-14 06:49] LABS: PLATELET COUNT AUTOMATED 1121 10*3/uL (130-400)
--- NOTE | 2017-05-14 06:52 | NUR ---
LAB CALLED CRITICAL LAB RESULT: PLT 1121. CALLED AND MADE DR RODRIGUEZ AWARE. NO ORDERS RECEIVED.
[2017-05-14 08:00] VITALS: BP 96/58
--- NOTE | 2017-05-14 08:42 | NUR ---
PHYSICAL THERAPY PAtient refuses PT services. " I can do it myself." Thank you for this referral. Germaine Tsai,PT
--- NOTE | 2017-05-14 09:32 | NUR ---
case management attempted to visit with patient, patient out of room for testing
--- NOTE | 2017-05-14 10:00 | NUR ---
AM MEDS TAKEN.
[2017-05-14 12:00] VITALS: BP 107/70
--- NOTE | 2017-05-14 14:11 | NUR ---
RESTING WITH NO DISTRESS.
[2017-05-14 16:00] VITALS: BP 100/49
[2017-05-14 19:49] VITALS: BP 104/49
[2017-05-15] VITALS: BP 117/55
--- NOTE | 2017-05-15 01:36 | NUR ---
24 HR chart check completed.
[2017-05-15 06:53] LABS: BASO % 0.4 % (0.0-1.0); EOS # 0.4 10*3/uL (0.0-0.4); EOS % 3.8 % (1.0-4.0); HEMATOCRIT 27.2 % (37.0-47.0); HEMOGLOBIN 8.7 g/dl (12.0-16.0); LYMPH # 1.7 10*3/uL (1.3-4.4); LYMPH % 15.7 % (27.0-41.0); MEAN CELL VOLUME 96.1 fl (81.0-99.0); MEAN CORPUSCULAR HGB 30.7 pg (27.0-31.0); MONO # 0.8 10*3/uL (0.1-1.0); MONO % 7.3 % (3.0-9.0); NEUT # 7.7 10*3/uL (2.3-7.9); NEUT % 72.4 % (47.0-73.0); PLATELET COUNT AUTOMATED 957 10*3/uL (130-400); RED BLOOD COUNT 2.83 10*6/uL (4.10-5.10); RED CELL DISTRI WIDTH 18.8 % (0-14.5); WHITE BLOOD COUNT 10.6 10*3/uL (4.8-10.8)
[2017-05-15 07:12] LABS: CREATININE 2.04 mg/dL (0.55-1.02); POTASSIUM 4.7 mmol/L (3.5-5.1)
--- NOTE | 2017-05-15 07:30 | NUR ---
ATTEMPTED TO CONTACT DR. MADDEN ON CRITICAL OCCULT BLOOD RESULT AT THIS TIME. WILL TRY AGAIN AROUND 9.
[2017-05-15 08:00] VITALS: BP 102/38
--- NOTE | 2017-05-15 09:00 | NUR ---
case management visits with patient, patient states she will be going home when able and denies any home needs
[2017-05-15] MEDS ORDERED: HYDROXYUREA500 MG PO (12:27)
--- NOTE | 2017-05-15 14:24 | NUR ---
Discharge instructions reviewed with patient. Patient receptive and verbalizes understanding. Follow-up care arranged. Written instructions given to patient. GONZALES FIERRO
== END 2017-05-15 14:23 | disposition home or self-care (01) | DRG 841 ==
LOC: ED 19:34 → EDHOLD 21:54 → 5E 21:54
PROVIDERS: Internal Medicine; Nurse Practitioner Family; ADMIT Emergency Medicine
PROC: 30243N1 Transfusion of Nonautologous Red Blood Cells into Central Vein, Percutaneous Approach (ICD-10-PCS; principal; 2017-05-13)
DX: D47.1 Chronic myeloproliferative disease (principal); N18.4 Chronic kidney disease, stage 4 (severe); J96.10 Chronic respiratory failure, unspecified whether with hypoxia or hypercapnia; R65.10 Systemic inflammatory response syndrome (SIRS) of non-infectious origin without acute organ dysfunction; I13.0 Hypertensive heart and chronic kidney disease with heart failure and stage 1 through stage 4 chronic kidney disease, or unspecified chronic kidney disease; Z99.81 Dependence on supplemental oxygen; I50.9 Heart failure, unspecified; D63.8 Anemia in other chronic diseases classified elsewhere; D63.0 Anemia in neoplastic disease; R73.9 Hyperglycemia, unspecified; J44.9 Chronic obstructive pulmonary disease, unspecified; D47.3 Essential (hemorrhagic) thrombocythemia; E78.5 Hyperlipidemia, unspecified; F41.8 Other specified anxiety disorders; M79.89 Other specified soft tissue disorders; I25.10 Atherosclerotic heart disease of native coronary artery without angina pectoris; K57.90 Diverticulosis of intestine, part unspecified, without perforation or abscess without bleeding; Z96.651 Presence of right artificial knee joint; Z98.51 Tubal ligation status; Z90.49 Acquired absence of other specified parts of digestive tract; Z98.42 Cataract extraction status, left eye; Z80.1 Family history of malignant neoplasm of trachea, bronchus and lung; Z82.0 Family history of epilepsy and other diseases of the nervous system; Z87.01 Personal history of pneumonia (recurrent); Z87.891 Personal history of nicotine dependence; Z79.82 Long term (current) use of aspirin; Z79.899 Other long term (current) drug therapy

== ENCOUNTER → 2017-06-04 | Outpatient (CLI) | payer MEDICARE ==
[2017-06-04] VITALS (7 sets, daily range): BP systolic 110–127; BP diastolic 34–38
[~2017-06-04] MED LIST changes: +HYDROXYUREA500 MG PO
== END | disposition home or self-care (01) ==
LOC: TRNFUSION 03:38
DX: N18.9 Chronic kidney disease, unspecified (principal); D63.1 Anemia in chronic kidney disease

== ENCOUNTER → 2017-07-04 | Outpatient (CLI) | payer MEDICARE ==
[2017-07-03 15:45] LABS: BASO % 0.4 % (0.0-1.0); EOS % 1.8 % (1.0-4.0); HEMATOCRIT 24.8 % (37.0-47.0); LYMPH # 0.8 10*3/uL (1.3-4.4); LYMPH % 36.8 % (27.0-41.0); MEAN CELL VOLUME 95.4 fl (81.0-99.0); MEAN CORPUSCULAR HGB 30.8 pg (27.0-31.0); MEAN CORPUSCULAR HGB CONC 32.3 g/dl (33.0-37.0); MEAN PLATELET VOLUME 10.8 fl (9.6-12.3); MONO # 0.2 10*3/uL (0.1-1.0); MONO % 7.9 % (3.0-9.0); NEUT # 1.2 10*3/uL (2.3-7.9); NEUT % 52.7 % (47.0-73.0); PLATELET COUNT AUTOMATED 100 10*3/uL (130-400); RED CELL DISTRI WIDTH 17.9 % (0-14.5); WHITE BLOOD COUNT 2.3 10*3/uL (4.8-10.8)
[2017-07-04 09:00] VITALS: BP 112/37
[2017-07-04 10:05] VITALS: BP 119/37
[2017-07-04 10:35] VITALS: BP 119/31
[2017-07-04 12:15] VITALS: BP 118/38
[2017-07-04 12:45] VITALS: BP 119/44
[2017-07-04 13:40] VITALS: BP 124/40
== END | disposition home or self-care (01) ==
LOC: TRNFUSION 00:48
PROVIDERS: Internal Medicine Hematology & Oncology
DX: D83.9 Common variable immunodeficiency, unspecified (principal)

== ENCOUNTER → 2017-08-19 | Outpatient (CLI) | payer MEDICARE ==
[2017-08-19 14:56] LABS: HEMATOCRIT 29.9 % (37.0-47.0); HEMOGLOBIN 9.6 g/dl (12.0-16.0); MEAN CELL VOLUME 103.8 fl (81.0-99.0); MEAN CORPUSCULAR HGB 33.3 pg (27.0-31.0); MEAN CORPUSCULAR HGB CONC 32.1 g/dl (33.0-37.0); MEAN PLATELET VOLUME 9.5 fl (9.6-12.3); PLATELET COUNT AUTOMATED 162 10*3/uL (130-400); RED BLOOD COUNT 2.88 10*6/uL (4.10-5.10); WHITE BLOOD COUNT 4.6 10*3/uL (4.8-10.8)
[2017-08-19 16:29] LABS: TOTAL CELLS COUNTED 100 #CELLS
[2017-08-19 16:30] LABS: PLATELET SUFFICIENCY NORMAL (NORMAL)
== END | disposition home or self-care (01) ==
LOC: LAB 14:36
PROVIDERS: Internal Medicine Hematology & Oncology
DX: D83.9 Common variable immunodeficiency, unspecified (principal)

== ENCOUNTER → 2017-08-27 | Outpatient (CLI) | payer MEDICARE ==
[2017-08-27 14:31] LABS: HEMATOCRIT 28.4 % (37.0-47.0); HEMOGLOBIN 9.1 g/dl (12.0-16.0); MEAN CELL VOLUME 106.8 fl (81.0-99.0); MEAN CORPUSCULAR HGB 34.2 pg (27.0-31.0); MEAN PLATELET VOLUME 9.8 fl (9.6-12.3); PLATELET COUNT AUTOMATED 189 10*3/uL (130-400); RED BLOOD COUNT 2.66 10*6/uL (4.10-5.10); WHITE BLOOD COUNT 5.1 10*3/uL (4.8-10.8)
[2017-08-27 14:46] LABS: ALBUMIN 3.9 gm/dl (3.1-4.5); CREATININE 1.92 mg/dL (0.55-1.02); PHOSPHOROUS 3.5 mg/dL (2.5-4.9); POTASSIUM 4.2 mmol/L (3.5-5.1)
[2017-08-27 14:54] LABS: BILIRUBIN NEGATIVE (NEGATIVE); BLOOD NEGATIVE (NEGATIVE); CLARITY CLEAR (CLEAR); COLOR YELLOW (YELLOW); GLUCOSE NEGATIVE (NEGATIVE); KETONE NEGATIVE (NEGATIVE); LEUKO ESTERASE NEGATIVE (NEGATIVE); NITRITE NEGATIVE (NEGATIVE); PH 5.5 (5.0-9.0); SPECIFIC GRAVITY <= 1.005 (1.005-1.030); UROBILINOGEN 0.2 E.U./dl (0.2-1.0)
[2017-08-27 15:02] LABS: URINE CREATININE RANDOM 37.7 mg/dL
[2017-08-27 15:18] LABS: TOTAL CELLS COUNTED 100 #CELLS
[2017-08-27 15:20] LABS: PLATELET SUFFICIENCY NORMAL (NORMAL)
[2017-08-27 15:32] LABS: BACTERIA TRACE
[2017-08-27 16:01] LABS: PTH INTACT 346.9 pg/mL (14.0-72.0)
[2017-08-27 16:35] LABS: FERRITIN 3577.6 ng/mL (10.0-291.0)
== END | disposition home or self-care (01) ==
LOC: LAB 13:50
PROVIDERS: Internal Medicine Nephrology
DX: N18.4 Chronic kidney disease, stage 4 (severe) (principal); D63.1 Anemia in chronic kidney disease; N25.81 Secondary hyperparathyroidism of renal origin; Z79.899 Other long term (current) drug therapy

== ENCOUNTER → 2017-09-23 | Outpatient (CLI) | payer MEDICARE ==
[2017-09-23 15:36] LABS: HEMATOCRIT 32.1 % (37.0-47.0); HEMOGLOBIN 10.3 g/dl (12.0-16.0); MEAN CELL VOLUME 114.6 fl (81.0-99.0); MEAN CORPUSCULAR HGB 36.8 pg (27.0-31.0); MEAN CORPUSCULAR HGB CONC 32.1 g/dl (33.0-37.0); MEAN PLATELET VOLUME 10.4 fl (9.6-12.3); PLATELET COUNT AUTOMATED 138 10*3/uL (130-400); RED CELL DISTRI WIDTH 16.8 % (0-14.5); WHITE BLOOD COUNT 5.4 10*3/uL (4.8-10.8)
[2017-09-23 15:58] LABS: BASOPHILS 1 % (0-1); PLATELET SUFFICIENCY NORMAL (NORMAL); TOTAL CELLS COUNTED 100 #CELLS
[2017-09-23 16:00] LABS: POLYCHROMASIA SLIGHT
== END | disposition home or self-care (01) ==
LOC: LAB 15:00
PROVIDERS: Internal Medicine Hematology & Oncology
DX: D83.9 Common variable immunodeficiency, unspecified (principal)

== ENCOUNTER → 2017-10-23 | Outpatient (CLI) | payer MEDICARE ==
[2017-10-23 15:08] LABS: CREATININE 1.72 mg/dL (0.55-1.02)
== END | disposition home or self-care (01) ==
LOC: LAB 14:00
PROVIDERS: Internal Medicine Hematology & Oncology
DX: D83.9 Common variable immunodeficiency, unspecified (principal)

== ENCOUNTER 2017-11-26 19:18 | Emergency (ER) | payer MEDICARE ==
[~2017-11-26] VITALS: Ht 152.4 cm; Wt 58.1 kg
[2017-11-26 19:26] VITALS: BP 143/59
[2017-11-26] MEDS ORDERED: NORCO 5-325 TA1 EACH PO (21:16)
== END 2017-11-26 21:25 | disposition home or self-care (01) ==
LOC: ED 19:18
DX: S42.292A Other displaced fracture of upper end of left humerus, initial encounter for closed fracture (principal); F17.200 Nicotine dependence, unspecified, uncomplicated; Z90.49 Acquired absence of other specified parts of digestive tract; Z98.51 Tubal ligation status; Z98.890 Other specified postprocedural states; Z96.651 Presence of right artificial knee joint; Z79.82 Long term (current) use of aspirin; Z79.899 Other long term (current) drug therapy; W19.XXXA Unspecified fall, initial encounter; Y93.89 Activity, other specified; Y92.59 Other trade areas as the place of occurrence of the external cause; Y99.9 Unspecified external cause status

== ENCOUNTER → 2017-12-02 | Outpatient (CLI) | payer MEDICARE | END | disposition home or self-care (01) | LOC: ORTHO 00:28 | DX: S42.202D Unspecified fracture of upper end of left humerus, subsequent encounter for fracture with routine healing (principal); X58.XXXD Exposure to other specified factors, subsequent encounter ==

== ENCOUNTER → 2017-12-24 | Outpatient (CLI) | payer MEDICARE | END | disposition home or self-care (01) | LOC: ORTHO 00:21 | DX: S42.202D Unspecified fracture of upper end of left humerus, subsequent encounter for fracture with routine healing (principal); X58.XXXD Exposure to other specified factors, subsequent encounter ==

== ENCOUNTER → 2018-01-12 | Outpatient (CLI) | payer MEDICARE ==
[~2018-01-12] MED LIST changes: +HYDREA500 M1 PO; +PHARMASSURE FO0.8 MG PO; +ROCALTROL0.25 MC2 PO
== END | disposition home or self-care (01) ==
LOC: ORTHO 01:02
DX: Z47.89 Encounter for other orthopedic aftercare (principal); S42.212D Unspecified displaced fracture of surgical neck of left humerus, subsequent encounter for fracture with routine healing; X58.XXXD Exposure to other specified factors, subsequent encounter

== ENCOUNTER → 2018-02-13 | Outpatient (CLI) | payer MEDICARE | END | disposition home or self-care (01) | LOC: ORTHO 04:06 | DX: S42.202D Unspecified fracture of upper end of left humerus, subsequent encounter for fracture with routine healing (principal); X58.XXXD Exposure to other specified factors, subsequent encounter ==

== ENCOUNTER → 2018-04-08 | Outpatient (CLI) | payer MEDICARE ==
[~2018-04-08] MED LIST changes: +LEVAQUIN750 M1 PO
== END | disposition home or self-care (01) ==
LOC: ORTHO 01:53
DX: Z47.89 Encounter for other orthopedic aftercare (principal); S42.402D Unspecified fracture of lower end of left humerus, subsequent encounter for fracture with routine healing; X58.XXXD Exposure to other specified factors, subsequent encounter

== ENCOUNTER → 2018-04-23 | Outpatient (CLI) | payer MEDICARE ==
[2018-04-23] VITALS (7 sets, daily range): BP systolic 111–135; BP diastolic 42–75
== END | disposition home or self-care (01) ==
LOC: TRNFUSION 03:32
PROVIDERS: Internal Medicine Hematology & Oncology
DX: D64.9 Anemia, unspecified (principal); D69.6 Thrombocytopenia, unspecified; J45.909 Unspecified asthma, uncomplicated; J44.9 Chronic obstructive pulmonary disease, unspecified; F41.9 Anxiety disorder, unspecified; Z80.9 Family history of malignant neoplasm, unspecified

== ENCOUNTER → 2018-06-03 | Outpatient (CLI) | payer MEDICARE ==
[2018-06-03 11:09] LABS: BASO % 0.4 % (0.0-1.0); EOS # 0.1 10*3/uL (0.0-0.4); EOS % 1.7 % (1.0-4.0); HEMATOCRIT 41.6 % (37.0-47.0); HEMOGLOBIN 13.2 g/dl (12.0-16.0); LYMPH % 21.2 % (27.0-41.0); MEAN CELL VOLUME 96.3 fl (81.0-99.0); MEAN CORPUSCULAR HGB 30.6 pg (27.0-31.0); MEAN CORPUSCULAR HGB CONC 31.7 g/dl (33.0-37.0); MEAN PLATELET VOLUME 10.7 fl (9.6-12.3); MONO # 0.5 10*3/uL (0.1-1.0); MONO % 10.1 % (3.0-9.0); NEUT # 3.2 10*3/uL (2.3-7.9); NEUT % 66.2 % (47.0-73.0); PLATELET COUNT AUTOMATED 385 10*3/uL (130-400); RED BLOOD COUNT 4.32 10*6/uL (4.10-5.10); RED CELL DISTRI WIDTH 20.4 % (0-14.5); WHITE BLOOD COUNT 4.8 10*3/uL (4.8-10.8)
[2018-06-03 11:12] LABS: BILIRUBIN NEGATIVE (NEGATIVE); BLOOD NEGATIVE (NEGATIVE); CLARITY SL CLOUDY (CLEAR); COLOR YELLOW (YELLOW); GLUCOSE NEGATIVE (NEGATIVE); KETONE NEGATIVE (NEGATIVE); LEUKO ESTERASE 2+ (NEGATIVE); NITRITE NEGATIVE (NEGATIVE); SPECIFIC GRAVITY <= 1.005 (1.005-1.030); UROBILINOGEN 0.2 E.U./dl (0.2-1.0)
[2018-06-03 11:40] LABS: BACTERIA 2+; MUCOUS 1+; WBC 41-50 wbc/hpf (0-5)
[2018-06-03 11:46] LABS: ALBUMIN 4.5 gm/dl (3.1-4.5); CREATININE 2.64 mg/dL (0.55-1.02); POTASSIUM 3.6 mmol/L (3.5-5.1)
[2018-06-03 11:57] LABS: PTH INTACT 204.9 pg/mL (18.5-88.0); VITAMIN D, 25-HYDROXY 32.1 ng/mL (30-100)
[2018-06-03 12:32] LABS: FERRITIN 3077.2 ng/mL (10.0-291.0)
== END | disposition home or self-care (01) ==
LOC: LAB 10:39
PROVIDERS: Internal Medicine Nephrology
DX: D63.1 Anemia in chronic kidney disease (principal); N18.4 Chronic kidney disease, stage 4 (severe); N25.81 Secondary hyperparathyroidism of renal origin; Z79.899 Other long term (current) drug therapy

== ENCOUNTER 2018-06-23 13:20 | Inpatient (IN) | payer MEDICARE ==
[~2018-06-23] VITALS: Ht 152.4 cm; Wt 55.8 kg
--- NOTE | ~2018-06-23 | EKG ---
[place], [place] ELECTROCARDIOGRAM REPORT NAME: JULIANE AMEZCUA UNIT #: [id number] ROOM: 403 DOCTOR: DARELL DRAFT REPORT BIRTHDATE: [birth year] [facility] Test Date: 2018-06-23 Test Time: 14:16:27 Pat Name: JULIANE AMEZCUA Department: Room: 403 Gender: F Rug Layer: 0012 : 1945 Requested By: STEVE KEITH Order Number: [id number] Reading MD: Radha Graves MD Measurements Intervals [place] Rate: 97 P: 70 MS: 163 QRS: 40 QRSD: 82 T: 60 QT: 360 QTc: 458 Interpretive Statements Sinus rhythm Borderline T abnormalities, anterior leads Compared to ECG 02/22/2018 14:21:52 T-wave abnormality now present Electronically Signed On 06-23-2018 16:19:30 PST by Radha Graves MD CM:EKGRPT:ELECTROCARDIOGRAM REPORT 1416 1619 STEVE COLLADO DRAFT REPORT STEVE KEITH DO
--- NOTE | ~2018-06-23 | PROC NOTE ---
[place], [place] PROCEDURE NOTE NAME: [facility] [id number] UNIT #: [id number] ROOM: 403 DOCTOR: OSMANI RIVAS MD,ARASH BIRTHDATE: [birth year] DOS: 06/26/2018 BRONCHOSCOPY NOTE PREOPERATIVE DIAGNOSES: The patient with severe cough and wheezing with current maximal medical management therapy. POSTOPERATIVE DIAGNOSES: Removal of severe impaction and mucus plug of endobronchial tree bilaterally. There were no endobronchial obstructive lesions. PROCEDURE DESCRIPTION: Informed consent was obtained for the patient. She was brought to the OR and placed in supine position. Conscious sedation administered by the Anesthesia Department. After achieving proper sedation for this patient, airway introduced into the mouth. Bronchoscope advanced to the airways into laryngeal area. Epiglottis and vocal cords seen. Vocal cord was noted yellowish in color, which moving symmetrically with movements. Bronchoscope advanced to the vocal cords into the tracheal lumen. Tracheal lumen noted with moderate amount of thick mucus secretion, which was suctioned out. Mercy was seen. Right upper, right middle, right lower, left upper, lingula, and lower lobe bronchi were all examined. She had no thickening of the mucosa noted of endobronchial tree bilaterally with severe mucus impaction of major airways were noted, which was cleared out with half normal saline wash, sent for cultures. Procedure was tolerated by the patient without any difficulty. Postoperative findings will be discussed with the patient once the patient recovers the effects of acute sedation. ARASH KEEN MD CM:PROCNOTE:PROCEDURE NOTE 0905 1241 ARASH RIVAS MD
--- NOTE | ~2018-06-23 | PR ---
[place], [place] PROGRESS NOTE NAME: JULIANE AMEZCUA [facility] #: [id number] UNIT #: [id number] ROOM: 403 DOCTOR: OSMANI RIVAS MD,ARASH BIRTHDATE: [birth year] DOS: 06/26/2018 PULMONARY PROGRESS NOTE SUBJECTIVE: The patient is noted comfortable at this time, resting, but still noted with symptoms of coughing, wheezing and shortness of breath. She is n.p.o. past midnight, bronchoscopy will be done today. Denies symptoms of nausea, vomiting, diarrhea, abdominal pain, edema or pain of the lower extremities. General weakness and fatigue are reported. She has been continuing on steroids 60 mg q. 8 hours from yesterday as well. Denies symptoms of headache or diplopia. Remaining systems were reviewed, they were noted all negative. OBJECTIVE: VITAL SIGNS: Which have been recorded showed the temperature noted as normal, respiratory rate recorded as 18, heart rate of 84, blood pressure 120/65-140/58. Pulse oxygen saturation on 2 liters nasal cannula 97% saturation recorded. HEENT: Examination shows head was atraumatic. Eyes nonicterus. NECK: Supple. CARDIOVASCULAR: S1, S2 audible. LUNGS: Breath sounds were noted decreased in the lungs bilaterally, diffuse expiratory wheezing, with only partial improvement from yesterday. ABDOMEN: Soft, nontender. Bowel sounds present. EXTREMITIES: Without edema. MUSCULOSKELETAL: Without acute deformities. VISIBLE SKIN: No lesion or rashes. CENTRAL NERVOUS SYSTEM: Cranial nerves 2 through 12 were intact. LABORATORY DATA: CBC of this morning: WBC count 17.4, hemoglobin 9, platelet count of 427,000, 90% segmented neutrophils. BMP of this morning: BUN 49, creatinine 1.81, glucose 141. Arterial blood gas that was ordered yesterday was reviewed, pH of 7.38, pCO2 of 49, pO2 of 72. MICROBIOLOGY: Culture of the sputum was still noted pending at the present time. IMPRESSION: 1. The patient with ongoing acute severe exacerbation of chronic obstructive pulmonary disease, chronic hypoxic respiratory failure and hypercarbia. 2. The patient with chronic kidney disease with acute worsening, noted with elevation in creatinine after 24 hours. 3. The patient with chronic obesity. 4. Nicotine dependence. PLAN OF MANAGEMENT: Continuation with bronchodilators and oxygen supplementation. The patient would be needing intravenous fluids as well for management of current worsening of kidney injury. Bronchodilators to be continued. Usual care, other supportive therapy, plan of management, other care plan. Proceed with bronchoscopy. Changes and modification of treatment will be needed after the bronchoscopy. Supportive care, other therapy, plan of [place], [place] PROGRESS NOTE NAME: JULIANE AMEZCUA UNIT #: [id number] ROOM: 403 DOCTOR: OSMANI RIVAS MD,ARASH BIRTHDATE: [birth year] management as well. ARASH KEEN MD CM:PNTRANS 0903 1237 ARASH RIVAS MD 06/26/18 1238 interface
--- NOTE | ~2018-06-23 | PR ---
[place], [place] PROGRESS NOTE NAME: JULIANE AMEZCUA UNIT #: [id number] ROOM: 403 DOCTOR: ARASH TELLO MD BIRTHDATE: [birth year] DOS: 06/27/2018 PULMONARY PROGRESS NOTE SUBJECTIVE: The patient was noted comfortable without any acute distress, not reported any symptoms of chest pain, fevers, chills, or hemoptysis. Bronchoscopy was completed yesterday resulting in marked improvement and reduction of the respiratory symptoms of coughing and wheezing. This morning, the patient was seen comfortably sitting on the side of the bed. OBJECTIVE: VITAL SIGNS: For the patient which has been recorded showed the temperature noted as normal, respiratory recorded as 20, heart rate 92, blood pressure 132/53. Pulse ox saturation on 2 liters 100% saturation. HEENT: Head was atraumatic. Eyes nonicterus. NECK: Supple. CARDIOVASCULAR: S1, S2 is audible. LUNGS: The patient was noted with reduction in the wheezing from previous examination. ABDOMEN: Soft, nontender. Bowel sounds present. EXTREMITIES: Noted without any acute edema. LABORATORY DATA: The Gram stain of the bronchial washing from yesterday revealed moderate white blood cells, few epithelial cells without any organisms seen. Culture of the bronchial washing as normal zion. In the BMP, BUN noted 46, and creatinine 1.62. IMPRESSION: Improving acute exacerbation of chronic obstructive pulmonary disease, acute tracheobronchitis, progressive current medical management for symptoms noted with bronchoscopy, removal of the mucus impaction from major airways. Resolving acute kidney injury. PLAN OF MANAGEMENT: Monitor culture results. Continue current dose of corticosteroids, bronchodilators, possible discharge home consideration in the morning. [place], [place] PROGRESS NOTE NAME: JULIANE AMEZCUA UNIT #: [id number] ROOM: 403 DOCTOR: ARASH TELLO MD BIRTHDATE: [birth year] ARASH KEEN MD CM:PNTRANS 1309 0210 ARASH RIVAS MD 07/10/18 1001 interface
--- NOTE | ~2018-06-23 | CON ---
[place], [place] REPORT OF CONSULTATION NAME: JULIANE AMEZCUA [facility] #: [id number] UNIT #: [id number] ROOM: 403 DOCTOR: ARASH TELLO MD BIRTHDATE: [birth year] DOS: 06/25/2018 CONSULTATION REQUESTED BY: Hospitalist service. REASON FOR CONSULTATION: Assessment of recurrent acute exacerbation of chronic obstructive pulmonary disease. HISTORY OF PRESENT ILLNESS: This 72-year-old white female known to me from the past. She presented to the Emergency Room in the Hospital on 06/23/2018. The patient reported having symptoms of increased shortness of breath, coughing, excessive chest congestion with small amount of sputum expectoration for the last several days. The symptoms were noted a week or more. The patient has been taking nebulized bronchodilators 4 or 5 times a day without any improvement in respiratory symptom. Whenever the sputum was noted productive, small amount of greenish sputum expectoration noted with symptoms of hemoptysis. Wheezing was noted continuously. The patient denies symptoms of chest pain. She has been admitted to the hospital, currently managed acute exacerbation of chronic obstructive pulmonary disease. Continue similar symptoms with persistent severe cough, chest congestion with minimal sputum expectoration at a time. The wheezing and shortness breath noted at rest and worsened with minimal exertion. REVIEW OF SYSTEMS: CONSTITUTIONAL: Fatigue and tiredness noted without any symptoms of fever or chills. EYES: Denies burning, redness, or tenderness. EARS, NOSE, THROAT SYMPTOMS: Denies sore throat, hoarseness, otalgia, postnasal drainage or epistaxis. CARDIOVASCULAR: No angina pain, edema, or pain in lower extremity, or palpitation. GASTROINTESTINAL: No dysphagia, nausea, vomiting, diarrhea, abdominal pain, hematemesis, melena, hematochezia, or abnormal weight loss. GENITOURINARY: No dysuria, suprapubic pain, urinary incontinence, or flank pain. MUSCULOSKELETAL: Denies any joint deformities, acute pain in any joints at this time. SKIN: Denies abnormal lesions or rashes. CENTRAL NERVOUS SYSTEM: Complains of mild lightheadedness, which has been resolved without any history or symptoms of seizures, focal neurologic deficit, tingling sensation of the extremities. Remaining systems were reviewed. They were noted all negative. PAST MEDICAL HISTORY: The patient was noted with history of: Chronic obstructive pulmonary disease.1. Chronic kidney disease stage 4.2. Chronic respiratory failure requiring use of oxygen.3. Brxi-tq-xmtsvcse obesity.4. Diverticulosis.5. General anxiety disorder.6. 7. Previous history of pneumonia. [place], [place] REPORT OF CONSULTATION NAME: JULIANE AMEZCUA UNIT #: [id number] ROOM: 403 DOCTOR: OSMANI RIVAS MD,ARASH BIRTHDATE: [birth year] 8. Past hospitalization noted in 02/2018 with acute severe exacerbation of chronic obstructive pulmonary disease requiring therapeutic bronchoscopy for the resolution of the current acute symptoms. PAST SURGICAL HISTORY: Tubal ligation.1. D and C.2. Appendectomy.3. Partial colectomy for the sigmoid diverticulosis and diverticulitis.4. Left cataract extraction, lens implantation.5. Dialysis catheter insertion for the renal failure management previously.6. 7. Therapeutic bronchoscopy done in 2018. SOCIAL HISTORY: The patient is . Has 4 children, lives at home. Denies history of alcohol use or drug use. Tobacco use for the patient noted as a pack of cigarettes per day reported with intermittently only short term of tobacco cessation was reported previously. She does drink alcohol socially. FAMILY HISTORY: The patient's father at 52 years age of complications of brain aneurysm and rupture. Mother at age 70 years age with complication related to the lung cancer. HOME MEDICATIONS: Listed use of albuterol sulfate with nebulizer, aspirin, Lipitor, Coreg, folic acid, Lasix, Singulair and oxygen. DRUG ALLERGIES: Noted with no known drug allergies. PHYSICAL EXAMINATION: GENERAL: This is a 72-year-old white female patient currently noted with excessive wheezing noted at rest with mild tachypnea. Height recorded as height of 5 feet, weight of 123 pounds and BMI 24. VITAL SIGNS: Normal temperature since hospitalization, respiratory rate 17-24, heart rate of 86-96, blood pressure 129/51-132/64. The pulse oxygen saturation of the patient was recorded on 2 liters nasal cannula 94% saturation. HEENT: Head was atraumatic. Eyes nonicterus. NECK: Supple. Mild dry oral mucosa. CARDIOVASCULAR: S1, S2 audible. LUNGS: Diffuse expiratory wheezing with decreased breath sounds. ABDOMEN: Soft and nontender. Bowel sounds present. EXTREMITIES: The patient was noted without any acute edema. VISIBLE SKIN: No lesions or rashes. MUSCULOSKELETAL: Noted without any acute deformities. CENTRAL NERVOUS SYSTEM: Cranial nerves 2-12 intact. LABORATORY DATA: The lactic acid done on 06/23/2018 normal. PT/PTT on 06/23/2018 normal on admission. CBC on admission, normal WBC count, hemoglobin 9.3 with normal platelet count. CMP on admission, BUN 42, creatinine 1.57, CO2 of 34. The CBC that was done this morning, WBC count 11.6, hemoglobin 8, and platelet count normal. BMP the patient this morning, BUN of 39 and creatinine 1.51. Blood culture from 06/23/2018 showed no bacterial growth. The chest [place], [place] REPORT OF CONSULTATION NAME: JULIANE AMEZCUA UNIT #: [id number] ROOM: 403 DOCTOR: OSMANI RIVAS MD,ARASH BIRTHDATE: [birth year] x-ray that was done on 06/04/2018 was reviewed does not show any acute pulmonary infiltration, changes of hyperinflation, and COPD. IMPRESSION: The patient with chronic nicotine abuse, history of chronic hypoxic respiratory failure, currently admitted to the hospital. The patient has severe acute exacerbation of chronic obstructive pulmonary disease. History of chronic kidney disease as well as other medical illnesses noted in the past history. PLAN OF MANAGEMENT: Order the arterial blood gas to assess the patient hypercapnia, so the BiPAP could be ordered for the management as necessary. Continue bronchodilators, oxygen supplementation is getting adequate amount of steroids and also receiving antibiotic for community-acquired bronchitis. Supportive therapy, plan of management to be continued. I will be ordering the respiratory viral panel for the patient that may be also considered because of current acute exacerbation. Abstinence tobacco use was addressed with the patient. Monitor results of sputum culture. Therapeutic bronchoscopy plan to be done in the morning to help improve and clear the secretion and mucus plug from the airway because of chronic symptom in spite of the maximal medical therapy. Other supportive therapy, plan of management, change will be ordered based on progression of illness. BiPAP will be ordered in case of acute hypercapnic respiratory failure if identified. ARASH KEEN MD CM:CONSTR:REPORT OF CONSULTATION 1409 07/14/18 1813 interface
--- NOTE | ~2018-06-23 | PR ---
[place], [place] PROGRESS NOTE [id number] #: [id number] ROOM: 403 DOCTOR: OSMANI RIVAS MD,ARASH BIRTHDATE: [birth year] DOS: 06/28/2018 SUBJECTIVE: The patient is noted comfortable at this time, resting on the bed. The coughing has been noted with gradual reduction. Denies symptoms of fever, chills or hemoptysis. She has been currently assessed for home oxygen needs. Ambulation the patient noted with shortness of breath, resulting from the patient with ambulation. The wheezing was decreasing. OBJECTIVE: VITAL SIGNS: Normal temperature, respirations 18, heart rate 96, blood pressure of 87. Pulse ox saturation on room air 92% saturation. HEENT: Head was atraumatic. Eyes nonicterus. NECK: Supple. CARDIOVASCULAR: S1, S2 is audible. LUNGS: The patient was noted with mild scattered expiratory wheezing, moderate decreased breath sounds bilaterally. ABDOMEN: Soft, nontender. Bowel sounds present. EXTREMITIES: Without any acute edema. LABORATORY DATA: Culture, bronchial washing noted normal zion. IMPRESSION: The patient with gradual and progressive resolution of acute exacerbation of chronic obstructive pulmonary disease, acute tracheobronchitis, past history of nicotine use. PLAN OF TREATMENT: Active tobacco use a tapering dose of prednisone. Assessment for the patient prior to the discharge noted in progress ordered by the primary care attending. ARASH KEEN MD CM:PNTRANS [id number] ARASH RIVAS MD 07/10/18 1001 interface
[~2018-06-23 13:20] MED LIST changes: -LEVAQUIN750 M1 PO
[2018-06-23 13:22] VITALS: BP 118/83
[2018-06-23 14:11] LABS: BASO % 0.5 % (0.0-1.0); EOS # 0.1 10*3/uL (0.0-0.4); EOS % 0.6 % (1.0-4.0); HEMATOCRIT 30.9 % (37.0-47.0); HEMOGLOBIN 9.3 g/dl (12.0-16.0); LYMPH # 0.8 10*3/uL (1.3-4.4); LYMPH % 9.2 % (27.0-41.0); MEAN CORPUSCULAR HGB 30.4 pg (27.0-31.0); MEAN CORPUSCULAR HGB CONC 30.1 g/dl (33.0-37.0); MEAN PLATELET VOLUME 10.1 fl (9.6-12.3); MONO % 12.1 % (3.0-9.0); NEUT # 6.5 10*3/uL (2.3-7.9); PLATELET COUNT AUTOMATED 360 10*3/uL (130-400); RED BLOOD COUNT 3.06 10*6/uL (4.10-5.10); RED CELL DISTRI WIDTH 17.8 % (0-14.5); WHITE BLOOD COUNT 8.5 10*3/uL (4.8-10.8)
[2018-06-23 14:12] LABS: ACT PARTIAL THROMBO TIME 26.7 SECONDS (20.8-31.5)
[2018-06-23 14:27] LABS: ALKALINE PHOSPHATASE 79 U/L (45-117); BUN 42 mg/dl (7-24); CHLORIDE 99 mmol/L (98-107); CREATININE 1.57 mg/dL (0.55-1.02); LIPASE 177 U/L (73-393); POTASSIUM 3.9 mmol/L (3.5-5.1); SGOT/AST 22 IU/L (3-35); SGPT/ALT 25 U/L (12-78); SODIUM 139 mmol/L (136-145); TOTAL PROTEIN 7.5 gm/dL (6.4-8.2)
[2018-06-23 14:34] LABS: TROPONIN I < 0.015 ng/ml (<0.045)
[2018-06-23 15:02] VITALS: BP 120/78
[2018-06-23 16:35] VITALS: BP 136/76
[2018-06-23 20:00] VITALS: BP 112/95
[2018-06-24] VITALS: BP 120/53
[2018-06-24 07:47] LABS: HEMATOCRIT 28.1 % (37.0-47.0); HEMOGLOBIN 8.1 g/dl (12.0-16.0); LYMPH # 0.4 10*3/uL (1.3-4.4); LYMPH % 6.9 % (27.0-41.0); MEAN CELL VOLUME 102.9 fl (81.0-99.0); MEAN CORPUSCULAR HGB 29.7 pg (27.0-31.0); MEAN CORPUSCULAR HGB CONC 28.8 g/dl (33.0-37.0); MEAN PLATELET VOLUME 10.4 fl (9.6-12.3); MONO # 0.2 10*3/uL (0.1-1.0); MONO % 3.4 % (3.0-9.0); NEUT # 4.8 10*3/uL (2.3-7.9); PLATELET COUNT AUTOMATED 280 10*3/uL (130-400); RED BLOOD COUNT 2.73 10*6/uL (4.10-5.10); RED CELL DISTRI WIDTH 17.6 % (0-14.5); WHITE BLOOD COUNT 5.4 10*3/uL (4.8-10.8)
[2018-06-24 08:15] LABS: POTASSIUM 3.9 mmol/L (3.5-5.1)
[2018-06-24 08:25] LABS: ALBUMIN 2.6 gm/dl (3.1-4.5); CREATININE 1.58 mg/dL (0.55-1.02); PHOSPHOROUS 2.3 mg/dL (2.5-4.9); TOTAL PROTEIN 6.7 gm/dL (6.4-8.2)
[2018-06-24 11:49] VITALS: BP 102/54
[2018-06-24 16:00] VITALS: BP 113/58
[2018-06-24 20:00] VITALS: BP 112/71
[2018-06-25] VITALS: BP 129/51
[2018-06-25 06:13] LABS: HEMATOCRIT 26.8 % (37.0-47.0); MEAN CELL VOLUME 101.9 fl (81.0-99.0); MEAN CORPUSCULAR HGB 30.4 pg (27.0-31.0); MEAN CORPUSCULAR HGB CONC 29.9 g/dl (33.0-37.0); MEAN PLATELET VOLUME 10.8 fl (9.6-12.3); PLATELET COUNT AUTOMATED 318 10*3/uL (130-400); RED BLOOD COUNT 2.63 10*6/uL (4.10-5.10); RED CELL DISTRI WIDTH 17.8 % (0-14.5); WHITE BLOOD COUNT 11.6 10*3/uL (4.8-10.8)
[2018-06-25 06:56] LABS: CREATININE 1.51 mg/dL (0.55-1.02); POTASSIUM 3.9 mmol/L (3.5-5.1)
[2018-06-25 07:15] LABS: PLATELET SUFFICIENCY NORMAL (NORMAL); TOTAL CELLS COUNTED 100 #CELLS
[2018-06-25 08:00] VITALS: BP 110/60
[2018-06-25 12:00] VITALS: BP 132/64
[2018-06-25 15:48] LABS: ABG BASE EXCESS 3.6 mmol/L (-2.0-2.0); ABG HCO3 28.8 mmol/l (22-26); ARTERIAL BLOOD GAS PCO2 49.3 mmHg (35-45); ARTERIAL BLOOD GAS PH 7.381 (7.35-7.45); ARTERIAL BLOOD GAS PO2 72.2 mmHg (80-90)
[2018-06-25 16:00] VITALS: BP 116/93
[2018-06-25 20:00] VITALS: BP 114/67
[2018-06-26] VITALS (9 sets, daily range): BP systolic 99–142; BP diastolic 50–67
[2018-06-26 06:33] LABS: HEMATOCRIT 30.6 % (37.0-47.0); MEAN CELL VOLUME 102.3 fl (81.0-99.0); MEAN CORPUSCULAR HGB 30.1 pg (27.0-31.0); MEAN CORPUSCULAR HGB CONC 29.4 g/dl (33.0-37.0); MEAN PLATELET VOLUME 10.4 fl (9.6-12.3); RED BLOOD COUNT 2.99 10*6/uL (4.10-5.10); RED CELL DISTRI WIDTH 18.1 % (0-14.5); WHITE BLOOD COUNT 17.4 10*3/uL (4.8-10.8)
[2018-06-26 06:41] LABS: PLATELET COUNT AUTOMATED 427 10*3/uL (130-400)
[2018-06-26 06:46] LABS: CREATININE 1.81 mg/dL (0.55-1.02); POTASSIUM 4.3 mmol/L (3.5-5.1)
[2018-06-26 06:53] LABS: PLATELET SUFFICIENCY HIGH (NORMAL); TOTAL CELLS COUNTED 100 #CELLS
[2018-06-27] VITALS: BP 112/56
[2018-06-27 06:55] LABS: HEMATOCRIT 27.3 % (37.0-47.0); HEMOGLOBIN 8.1 g/dl (12.0-16.0); MEAN CELL VOLUME 103.8 fl (81.0-99.0); MEAN CORPUSCULAR HGB 30.8 pg (27.0-31.0); MEAN CORPUSCULAR HGB CONC 29.7 g/dl (33.0-37.0); MEAN PLATELET VOLUME 10.1 fl (9.6-12.3); RED BLOOD COUNT 2.63 10*6/uL (4.10-5.10); RED CELL DISTRI WIDTH 18.5 % (0-14.5); WHITE BLOOD COUNT 12.1 10*3/uL (4.8-10.8)
[2018-06-27 06:57] LABS: PLATELET COUNT AUTOMATED 280 10*3/uL (130-400)
[2018-06-27 07:11] LABS: TOTAL CELLS COUNTED 100 #CELLS
[2018-06-27 07:12] LABS: PLATELET SUFFICIENCY NORMAL (NORMAL); POLYCHROMASIA SLIGHT
[2018-06-27 07:32] LABS: POTASSIUM 4.2 mmol/L (3.5-5.1)
[2018-06-27 07:36] LABS: CREATININE 1.62 mg/dL (0.55-1.02)
[2018-06-27 08:00] VITALS: BP 122/66
[2018-06-27 12:00] VITALS: BP 132/53
[2018-06-27 14:05] LABS: ACID FAST SPEC PROCESSING Concentration (.)
[2018-06-27 16:00] VITALS: BP 125/64
[2018-06-27 20:00] VITALS: BP 131/57
[2018-06-28] VITALS: BP 132/60
[2018-06-28 06:17] LABS: HEMATOCRIT 28.7 % (37.0-47.0); HEMOGLOBIN 8.3 g/dl (12.0-16.0); MEAN CELL VOLUME 103.2 fl (81.0-99.0); MEAN CORPUSCULAR HGB 29.9 pg (27.0-31.0); MEAN CORPUSCULAR HGB CONC 28.9 g/dl (33.0-37.0); MEAN PLATELET VOLUME 10.5 fl (9.6-12.3); PLATELET COUNT AUTOMATED 283 10*3/uL (130-400); RED BLOOD COUNT 2.78 10*6/uL (4.10-5.10); RED CELL DISTRI WIDTH 18.5 % (0-14.5); WHITE BLOOD COUNT 15.9 10*3/uL (4.8-10.8)
[2018-06-28 06:52] LABS: CREATININE 1.67 mg/dL (0.55-1.02); POTASSIUM 4.3 mmol/L (3.5-5.1)
[2018-06-28 07:10] LABS: PLATELET SUFFICIENCY NORMAL (NORMAL); TOTAL CELLS COUNTED 100 #CELLS
[2018-06-28 08:00] VITALS: BP 132/87
[2018-06-28] MEDS ORDERED: PREDNISONE10 MG PO (09:51)
[2018-06-28] MEDS ORDERED: LEVAQUIN750 M1 PO (09:51)
[2018-06-28 12:00] VITALS: BP 126/62
[2018-06-30 02:05] LABS: ADENOVIRUS Negative (Negative); INFLUENZA A Negative (Negative); INFLUENZA B Negative (Negative); METAPNEUMOVIRUS Negative (Negative); PARAINFLUENZA 1 Negative (Negative); PARAINFLUENZA 2 Negative (Negative); PARAINFLUENZA 3 Negative (Negative); RHINOVIRUS Negative (Negative); RSV A Negative (Negative); RSV B Negative (Negative)
== END 2018-06-28 15:05 | disposition home or self-care (01) | DRG 871 ==
LOC: ED 13:20 → 4E 15:10 → EDHOLD 15:10 → 4E 15:27
PROVIDERS: Emergency Medicine; Family Medicine; Internal Medicine; Internal Medicine Critical Care Medicine; Podiatrist Primary Podiatric Medicine; Student in an Organized Health Care Education/Training Program
PROC: 0BC98ZZ Extirpation of Matter from Lingula Bronchus, Via Natural or Artificial Opening Endoscopic (ICD-10-PCS; principal; 2018-06-26)
PROC: 0BC58ZZ Extirpation of Matter from Right Middle Lobe Bronchus, Via Natural or Artificial Opening Endoscopic (ICD-10-PCS; principal; 2018-06-26)
PROC: 0BCB8ZZ Extirpation of Matter from Left Lower Lobe Bronchus, Via Natural or Artificial Opening Endoscopic (ICD-10-PCS; principal; 2018-06-26)
PROC: 0BC78ZZ Extirpation of Matter from Left Main Bronchus, Via Natural or Artificial Opening Endoscopic (ICD-10-PCS; principal; 2018-06-26)
PROC: 0BC68ZZ Extirpation of Matter from Right Lower Lobe Bronchus, Via Natural or Artificial Opening Endoscopic (ICD-10-PCS; principal; 2018-06-26)
PROC: 0BC48ZZ Extirpation of Matter from Right Upper Lobe Bronchus, Via Natural or Artificial Opening Endoscopic (ICD-10-PCS; principal; 2018-06-26)
PROC: 0BC38ZZ Extirpation of Matter from Right Main Bronchus, Via Natural or Artificial Opening Endoscopic (ICD-10-PCS; principal; 2018-06-26)
PROC: 0BC18ZZ Extirpation of Matter from Trachea, Via Natural or Artificial Opening Endoscopic (ICD-10-PCS; principal; 2018-06-26)
PROC: 0BC88ZZ Extirpation of Matter from Left Upper Lobe Bronchus, Via Natural or Artificial Opening Endoscopic (ICD-10-PCS; principal; 2018-06-26)
DX: A41.9 Sepsis, unspecified organism (principal); J18.9 Pneumonia, unspecified organism; G93.41 Metabolic encephalopathy; J44.1 Chronic obstructive pulmonary disease with (acute) exacerbation; E44.0 Moderate protein-calorie malnutrition; J96.11 Chronic respiratory failure with hypoxia; N18.4 Chronic kidney disease, stage 4 (severe); J44.0 Chronic obstructive pulmonary disease with (acute) lower respiratory infection; N17.9 Acute kidney failure, unspecified; J96.12 Chronic respiratory failure with hypercapnia; E66.9 Obesity, unspecified; D53.9 Nutritional anemia, unspecified; E83.41 Hypermagnesemia; Z96.651 Presence of right artificial knee joint; E78.2 Mixed hyperlipidemia; K57.90 Diverticulosis of intestine, part unspecified, without perforation or abscess without bleeding; I12.9 Hypertensive chronic kidney disease with stage 1 through stage 4 chronic kidney disease, or unspecified chronic kidney disease; J20.9 Acute bronchitis, unspecified; Z96.1 Presence of intraocular lens; F41.8 Other specified anxiety disorders; F17.210 Nicotine dependence, cigarettes, uncomplicated; R79.82 Elevated C-reactive protein (CRP); Z71.6 Tobacco abuse counseling; Z99.81 Dependence on supplemental oxygen; Z68.24 Body mass index [BMI] 24.0-24.9, adult; Z87.01 Personal history of pneumonia (recurrent); Z90.49 Acquired absence of other specified parts of digestive tract; Z98.51 Tubal ligation status; Z80.1 Family history of malignant neoplasm of trachea, bronchus and lung; Z98.42 Cataract extraction status, left eye

== ENCOUNTER → 2018-08-28 | Outpatient (CLI) | payer MEDICARE ==
[~2018-08-28] MED LIST changes: +LEVAQUIN750 M1 PO
[2018-08-28 11:18] LABS: BILIRUBIN NEGATIVE (NEGATIVE); BLOOD NEGATIVE (NEGATIVE); COLOR YELLOW (YELLOW); GLUCOSE NEGATIVE (NEGATIVE); HEMATOCRIT 32.6 % (37.0-47.0); HEMOGLOBIN 10.1 g/dl (12.0-16.0); KETONE NEGATIVE (NEGATIVE); LEUKO ESTERASE 1+ (NEGATIVE); MEAN CELL VOLUME 96.2 fl (81.0-99.0); MEAN CORPUSCULAR HGB 29.8 pg (27.0-31.0); MEAN PLATELET VOLUME 10.1 fl (9.6-12.3); NITRITE NEGATIVE (NEGATIVE); NUCLEATED RED BLOOD CELL 0.2 % (0.0-0.0); PLATELET COUNT AUTOMATED 652 10*3/uL (130-400); RED BLOOD COUNT 3.39 10*6/uL (4.10-5.10); RED CELL DISTRI WIDTH 16.4 % (0-14.5); SPECIFIC GRAVITY <= 1.005 (1.005-1.030); UROBILINOGEN 0.2 E.U./dl (0.2-1.0); WHITE BLOOD COUNT 9.6 10*3/uL (4.8-10.8)
[2018-08-28 11:26] LABS: URINE CREATININE RANDOM 65.4 mg/dL
[2018-08-28 11:36] LABS: BACTERIA TRACE; CLARITY SL CLOUDY (CLEAR); RBC 0-2 rbc/hpf (0-2); WBC 21-30 wbc/hpf (0-5)
[2018-08-28 11:43] LABS: ALBUMIN 3.3 gm/dl (3.1-4.5); CREATININE 1.75 mg/dL (0.55-1.02); PHOSPHOROUS 3.5 mg/dL (2.5-4.9); POTASSIUM 4.1 mmol/L (3.5-5.1)
[2018-08-28 11:48] LABS: BASOPHILS 1 % (0-1); PLATELET SUFFICIENCY HIGH (NORMAL); POLYCHROMASIA SLIGHT; TOTAL CELLS COUNTED 100 #CELLS
[2018-08-28 11:58] LABS: PTH INTACT 214.5 pg/mL (18.5-88.0); VITAMIN D, 25-HYDROXY 30.1 ng/mL (30-100)
[2018-08-28 12:39] LABS: FERRITIN 4270.7 ng/mL (10.0-291.0)
== END | disposition home or self-care (01) ==
LOC: LAB 10:54
PROVIDERS: Internal Medicine Nephrology
DX: N25.81 Secondary hyperparathyroidism of renal origin (principal); D63.1 Anemia in chronic kidney disease; N18.4 Chronic kidney disease, stage 4 (severe); Z79.899 Other long term (current) drug therapy

== ENCOUNTER → 2018-09-09 | Outpatient (CLI) | payer MEDICARE ==
[2018-09-09 12:38] LABS: HEMATOCRIT 29.3 % (37.0-47.0); HEMOGLOBIN 9.3 g/dl (12.0-16.0); MEAN CELL VOLUME 96.1 fl (81.0-99.0); MEAN CORPUSCULAR HGB 30.5 pg (27.0-31.0); MEAN CORPUSCULAR HGB CONC 31.7 g/dl (33.0-37.0); MEAN PLATELET VOLUME 10.4 fl (9.6-12.3); PLATELET COUNT AUTOMATED 810 10*3/uL (130-400); RED BLOOD COUNT 3.05 10*6/uL (4.10-5.10); RED CELL DISTRI WIDTH 15.9 % (0-14.5); RETICULOCYTE % 0.96 % (0.50-2.50); WHITE BLOOD COUNT 9.2 10*3/uL (4.8-10.8)
[2018-09-09 13:03] LABS: ALBUMIN 3.7 gm/dl (3.1-4.5); CREATININE 2.1 mg/dL (0.55-1.02); POTASSIUM 4.2 mmol/L (3.5-5.1); TOTAL PROTEIN 7.6 gm/dL (6.4-8.2)
[2018-09-09 13:17] LABS: PLATELET SUFFICIENCY HIGH (NORMAL); TOTAL CELLS COUNTED 100 #CELLS
[2018-09-09 13:18] LABS: SCHISTOCYTES FEW
== END | disposition home or self-care (01) ==
LOC: LAB 11:50
PROVIDERS: Internal Medicine
DX: D47.1 Chronic myeloproliferative disease (principal)

== ENCOUNTER → 2018-09-16 | Outpatient (CLI) | payer MEDICARE ==
[2018-09-16 11:15] LABS: HEMATOCRIT 25.6 % (37.0-47.0); HEMOGLOBIN 7.9 g/dl (12.0-16.0); MEAN CELL VOLUME 95.5 fl (81.0-99.0); MEAN CORPUSCULAR HGB 29.5 pg (27.0-31.0); MEAN CORPUSCULAR HGB CONC 30.9 g/dl (33.0-37.0); MEAN PLATELET VOLUME 10.1 fl (9.6-12.3); PLATELET COUNT AUTOMATED 827 10*3/uL (130-400); RED BLOOD COUNT 2.68 10*6/uL (4.10-5.10); RED CELL DISTRI WIDTH 15.9 % (0-14.5); RETICULOCYTE % 0.81 % (0.50-2.50)
[2018-09-16 11:38] LABS: ALBUMIN 3.5 gm/dl (3.1-4.5); CREATININE 2.17 mg/dL (0.55-1.02); TOTAL PROTEIN 7.2 gm/dL (6.4-8.2)
[2018-09-16 11:42] LABS: TOTAL CELLS COUNTED 100 #CELLS
[2018-09-16 11:43] LABS: PLATELET SUFFICIENCY HIGH (NORMAL); SCHISTOCYTES FEW
[2018-09-16 11:44] LABS: POLYCHROMASIA SLIGHT
== END | disposition home or self-care (01) ==
LOC: LAB 01:40
PROVIDERS: Internal Medicine
DX: D47.1 Chronic myeloproliferative disease (principal)

== ENCOUNTER → 2018-09-24 | Outpatient (CLI) | payer MEDICARE ==
[2018-09-24 12:52] LABS: HEMATOCRIT 26.6 % (37.0-47.0); HEMOGLOBIN 8.1 g/dl (12.0-16.0); MEAN CELL VOLUME 96.4 fl (81.0-99.0); MEAN CORPUSCULAR HGB 29.3 pg (27.0-31.0); MEAN CORPUSCULAR HGB CONC 30.5 g/dl (33.0-37.0); MEAN PLATELET VOLUME 9.6 fl (9.6-12.3); PLATELET COUNT AUTOMATED 848 10*3/uL (130-400); RED BLOOD COUNT 2.76 10*6/uL (4.10-5.10); RETICULOCYTE % 0.88 % (0.50-2.50); WHITE BLOOD COUNT 10.5 10*3/uL (4.8-10.8)
[2018-09-24 13:18] LABS: PLATELET SUFFICIENCY HIGH (NORMAL); POLYCHROMASIA SLIGHT; TOTAL CELLS COUNTED 100 #CELLS
[2018-09-24 13:24] LABS: ALBUMIN 3.5 gm/dl (3.1-4.5); CREATININE 2.31 mg/dL (0.55-1.02); POTASSIUM 3.7 mmol/L (3.5-5.1); TOTAL PROTEIN 7.4 gm/dL (6.4-8.2)
== END | disposition home or self-care (01) ==
LOC: LAB 12:30
PROVIDERS: Internal Medicine
DX: D47.1 Chronic myeloproliferative disease (principal)

== ENCOUNTER → 2018-09-30 | Outpatient (CLI) | payer MEDICARE ==
[2018-09-30 09:06] LABS: BASO # 0.1 10*3/uL (0.0-0.1); BASO % 0.8 % (0.0-1.0); EOS # 0.4 10*3/uL (0.0-0.4); EOS % 4.5 % (1.0-4.0); HEMATOCRIT 23.5 % (37.0-47.0); HEMOGLOBIN 7.1 g/dl (12.0-16.0); LYMPH # 1.9 10*3/uL (1.3-4.4); LYMPH % 20.1 % (27.0-41.0); MEAN CELL VOLUME 97.9 fl (81.0-99.0); MEAN CORPUSCULAR HGB 29.6 pg (27.0-31.0); MEAN CORPUSCULAR HGB CONC 30.2 g/dl (33.0-37.0); MEAN PLATELET VOLUME 9.7 fl (9.6-12.3); MONO # 0.9 10*3/uL (0.1-1.0); MONO % 9.1 % (3.0-9.0); NEUT % 62.6 % (47.0-73.0); NUCLEATED RED BLOOD CELL 0.2 % (0.0-0.0); PLATELET COUNT AUTOMATED 996 10*3/uL (130-400); RED CELL DISTRI WIDTH 16.4 % (0-14.5); RETICULOCYTE % 1.14 % (0.50-2.50); WHITE BLOOD COUNT 9.7 10*3/uL (4.8-10.8)
[2018-09-30 09:34] LABS: ALBUMIN 3.3 gm/dl (3.1-4.5); CREATININE 1.87 mg/dL (0.55-1.02); POTASSIUM 3.6 mmol/L (3.5-5.1)
== END | disposition home or self-care (01) ==
LOC: LAB 00:55
PROVIDERS: Internal Medicine
DX: D47.1 Chronic myeloproliferative disease (principal)

== ENCOUNTER → 2018-10-08 | Outpatient (CLI) | payer MEDICARE ==
[2018-10-08 11:24] LABS: HEMOGLOBIN 6.6 g/dl (12.0-16.0); MEAN CELL VOLUME 95.7 fl (81.0-99.0); MEAN CORPUSCULAR HGB 28.7 pg (27.0-31.0); MEAN PLATELET VOLUME 10.2 fl (9.6-12.3); NUCLEATED RED BLOOD CELL 0.3 % (0.0-0.0); RED CELL DISTRI WIDTH 17.4 % (0-14.5); RETICULOCYTE % 1.55 % (0.50-2.50); WHITE BLOOD COUNT 15.2 10*3/uL (4.8-10.8)
[2018-10-08 12:07] LABS: BASOPHILS 1 % (0-1); OVALOCYTES FEW; PLATELET SUFFICIENCY HIGH (NORMAL); SCHISTOCYTES FEW; TOTAL CELLS COUNTED 100 #CELLS
[2018-10-08 12:08] LABS: POLYCHROMASIA SLIGHT
[2018-10-08 12:21] LABS: PLATELET COUNT AUTOMATED 1264 10*3/uL (130-400)
== END | disposition home or self-care (01) ==
LOC: LAB 03:10
PROVIDERS: Internal Medicine
DX: D47.1 Chronic myeloproliferative disease (principal)

== ENCOUNTER → 2018-10-09 | Outpatient (CLI) | payer MEDICARE ==
[2018-10-09] VITALS (8 sets, daily range): BP systolic 90–111; BP diastolic 40–58
== END | disposition home or self-care (01) ==
LOC: TRNFUSION 10:00
DX: D64.9 Anemia, unspecified (principal)

== ENCOUNTER → 2018-11-04 | Outpatient (CLI) | payer MEDICARE ==
[2018-11-04 10:11] LABS: BASO # 0.1 10*3/uL (0.0-0.1); BASO % 1.7 % (0.0-1.0); EOS # 0.2 10*3/uL (0.0-0.4); EOS % 2.8 % (1.0-4.0); HEMATOCRIT 26.7 % (37.0-47.0); HEMOGLOBIN 8.6 g/dl (12.0-16.0); LYMPH # 1.2 10*3/uL (1.3-4.4); LYMPH % 21.7 % (27.0-41.0); MEAN CORPUSCULAR HGB CONC 32.2 g/dl (33.0-37.0); MEAN PLATELET VOLUME 10.7 fl (9.6-12.3); MONO # 0.2 10*3/uL (0.1-1.0); MONO % 2.9 % (3.0-9.0); NEUT # 3.9 10*3/uL (2.3-7.9); NEUT % 70.5 % (47.0-73.0); PLATELET COUNT AUTOMATED 303 10*3/uL (130-400); RED BLOOD COUNT 2.87 10*6/uL (4.10-5.10); RED CELL DISTRI WIDTH 15.5 % (0-14.5); WHITE BLOOD COUNT 5.5 10*3/uL (4.8-10.8)
== END | disposition home or self-care (01) ==
LOC: LAB 09:49
PROVIDERS: Internal Medicine
DX: D47.1 Chronic myeloproliferative disease (principal); D80.1 Nonfamilial hypogammaglobulinemia; D64.9 Anemia, unspecified

== ENCOUNTER → 2018-12-17 | Outpatient (CLI) | payer MEDICARE ==
[2018-12-17 08:20] VITALS: BP 111/45
[2018-12-17 10:51] LABS: HEMATOCRIT 24.1 % (37.0-47.0); HEMOGLOBIN 7.7 g/dl (12.0-16.0); MEAN CELL VOLUME 106.2 fl (81.0-99.0); MEAN CORPUSCULAR HGB 33.9 pg (27.0-31.0); MEAN PLATELET VOLUME 10.2 fl (9.6-12.3); PLATELET COUNT AUTOMATED 90 10*3/uL (130-400); RED BLOOD COUNT 2.27 10*6/uL (4.10-5.10); WHITE BLOOD COUNT 2.3 10*3/uL (4.8-10.8)
[2018-12-17 11:18] LABS: BASOPHILS 1 % (0-1); PLATELET SUFFICIENCY LOW (NORMAL); POLYCHROMASIA SLIGHT; TOTAL CELLS COUNTED 100 #CELLS
[2018-12-17 12:10] VITALS: BP 106/29
[2018-12-17 13:00] VITALS: BP 94/40
[2018-12-17 14:00] VITALS: BP 103/38
== END | disposition home or self-care (01) ==
LOC: TRNFUSION 07:51
PROVIDERS: Internal Medicine
DX: D64.9 Anemia, unspecified (principal); J44.9 Chronic obstructive pulmonary disease, unspecified; F41.9 Anxiety disorder, unspecified; D69.6 Thrombocytopenia, unspecified; Z87.01 Personal history of pneumonia (recurrent); Z87.891 Personal history of nicotine dependence

== ENCOUNTER → 2018-12-23 | Outpatient (CLI) | payer MEDICARE ==
[2018-12-23 10:55] LABS: HEMATOCRIT 31.7 % (37.0-47.0); HEMOGLOBIN 10.3 g/dl (12.0-16.0); MEAN CELL VOLUME 106.4 fl (81.0-99.0); MEAN CORPUSCULAR HGB 34.6 pg (27.0-31.0); MEAN CORPUSCULAR HGB CONC 32.5 g/dl (33.0-37.0); MEAN PLATELET VOLUME 10.7 fl (9.6-12.3); PLATELET COUNT AUTOMATED 101 10*3/uL (130-400); RED BLOOD COUNT 2.98 10*6/uL (4.10-5.10); WHITE BLOOD COUNT 2.7 10*3/uL (4.8-10.8)
[2018-12-23 11:29] LABS: TOTAL CELLS COUNTED 100 #CELLS
[2018-12-23 11:30] LABS: ACANTHOCYTES FEW; PLATELET SUFFICIENCY LOW (NORMAL)
== END | disposition home or self-care (01) ==
LOC: LAB 01:12
PROVIDERS: Internal Medicine
DX: D64.9 Anemia, unspecified (principal)

== ENCOUNTER → 2019-01-06 | Outpatient (CLI) | payer MEDICARE ==
[2019-01-06 09:56] LABS: HEMATOCRIT 31.4 % (37.0-47.0); HEMOGLOBIN 10.1 g/dl (12.0-16.0); MEAN CELL VOLUME 111.3 fl (81.0-99.0); MEAN CORPUSCULAR HGB 35.8 pg (27.0-31.0); MEAN CORPUSCULAR HGB CONC 32.2 g/dl (33.0-37.0); MEAN PLATELET VOLUME 10.3 fl (9.6-12.3); PLATELET COUNT AUTOMATED 99 10*3/uL (130-400); RED BLOOD COUNT 2.82 10*6/uL (4.10-5.10); WHITE BLOOD COUNT 2.7 10*3/uL (4.8-10.8)
[2019-01-06 10:27] LABS: OVALOCYTES FEW; PLATELET SUFFICIENCY LOW (NORMAL); POLYCHROMASIA SLIGHT; SCHISTOCYTES FEW; TOTAL CELLS COUNTED 100 #CELLS
== END | disposition home or self-care (01) ==
LOC: LAB 00:45
PROVIDERS: Internal Medicine
DX: D64.9 Anemia, unspecified (principal)

== ENCOUNTER → 2019-01-14 | Outpatient (CLI) | payer MEDICARE ==
[2019-01-14 11:23] LABS: HEMATOCRIT 31.2 % (37.0-47.0); HEMOGLOBIN 10.2 g/dl (12.0-16.0); MEAN CELL VOLUME 111.8 fl (81.0-99.0); MEAN CORPUSCULAR HGB 36.6 pg (27.0-31.0); MEAN CORPUSCULAR HGB CONC 32.7 g/dl (33.0-37.0); MEAN PLATELET VOLUME 10.4 fl (9.6-12.3); PLATELET COUNT AUTOMATED 102 10*3/uL (130-400); RED BLOOD COUNT 2.79 10*6/uL (4.10-5.10); WHITE BLOOD COUNT 2.2 10*3/uL (4.8-10.8)
[2019-01-14 11:46] LABS: ATYPICAL LYMPHS 1 % (0-0); BASOPHILS 1 % (0-1); PLATELET SUFFICIENCY LOW (NORMAL); POLYCHROMASIA SLIGHT; TOTAL CELLS COUNTED 100 #CELLS
[2019-01-14 11:53] LABS: ALBUMIN 3.7 gm/dl (3.1-4.5); POTASSIUM 3.6 mmol/L (3.5-5.1)
[2019-01-14 11:58] LABS: CREATININE 2.17 mg/dL (0.55-1.02); TOTAL PROTEIN 7.4 gm/dL (6.4-8.2)
[2019-01-14 13:06] LABS: VITAMIN D, 25-HYDROXY 35.2 ng/mL (30-100)
[2019-01-14 13:32] LABS: FERRITIN 4212.1 ng/mL (10.0-291.0)
== END | disposition home or self-care (01) ==
LOC: LAB 10:56
PROVIDERS: Internal Medicine
DX: E78.2 Mixed hyperlipidemia (principal); D47.3 Essential (hemorrhagic) thrombocythemia; E55.9 Vitamin D deficiency, unspecified; N18.4 Chronic kidney disease, stage 4 (severe)

== ENCOUNTER → 2019-02-24 | Outpatient (CLI) | payer MEDICARE ==
[2019-02-24 10:18] LABS: HEMATOCRIT 33.4 % (37.0-47.0); HEMOGLOBIN 10.5 g/dl (12.0-16.0); MEAN CELL VOLUME 117.2 fl (81.0-99.0); MEAN CORPUSCULAR HGB 36.8 pg (27.0-31.0); MEAN CORPUSCULAR HGB CONC 31.4 g/dl (33.0-37.0); MEAN PLATELET VOLUME 10.3 fl (9.6-12.3); PLATELET COUNT AUTOMATED 147 10*3/uL (130-400); RED BLOOD COUNT 2.85 10*6/uL (4.10-5.10); RED CELL DISTRI WIDTH 16.4 % (0-14.5); RETICULOCYTE % 1.15 % (0.50-2.50); WHITE BLOOD COUNT 3.2 10*3/uL (4.8-10.8)
[2019-02-24 10:23] LABS: ALBUMIN 3.6 gm/dl (3.1-4.5); POTASSIUM 3.8 mmol/L (3.5-5.1); TOTAL PROTEIN 7.2 gm/dL (6.4-8.2)
[2019-02-24 10:55] LABS: OVALOCYTES FEW; PLATELET SUFFICIENCY NORMAL (NORMAL); SCHISTOCYTES FEW; TOTAL CELLS COUNTED 100 #CELLS
[2019-02-24 10:56] LABS: ROULEAUX SLIGHT
== END | disposition home or self-care (01) ==
LOC: LAB 01:50
PROVIDERS: Internal Medicine
DX: D47.1 Chronic myeloproliferative disease (principal)

== ENCOUNTER → 2019-03-03 | Outpatient (CLI) | payer MEDICARE ==
[2019-03-03 09:43] LABS: HEMATOCRIT 33.8 % (37.0-47.0); HEMOGLOBIN 10.8 g/dl (12.0-16.0); MEAN CORPUSCULAR HGB 36.7 pg (27.0-31.0); MEAN PLATELET VOLUME 10.2 fl (9.6-12.3); PLATELET COUNT AUTOMATED 131 10*3/uL (130-400); RED BLOOD COUNT 2.94 10*6/uL (4.10-5.10); RED CELL DISTRI WIDTH 15.3 % (0-14.5); RETICULOCYTE % 0.84 % (0.50-2.50); WHITE BLOOD COUNT 4.5 10*3/uL (4.8-10.8)
[2019-03-03 09:58] LABS: ALBUMIN 3.9 gm/dl (3.1-4.5); CREATININE 2.14 mg/dL (0.55-1.02); TOTAL PROTEIN 7.3 gm/dL (6.4-8.2)
[2019-03-03 10:01] LABS: BASOPHILS 1 % (0-1); SCHISTOCYTES FEW; TOTAL CELLS COUNTED 100 #CELLS
[2019-03-03 10:02] LABS: OVALOCYTES FEW; PLATELET SUFFICIENCY NORMAL (NORMAL)
[2019-03-03 10:22] LABS: POTASSIUM 4.1 mmol/L (3.5-5.1)
== END | disposition home or self-care (01) ==
LOC: LAB 00:45
PROVIDERS: Internal Medicine
DX: D47.1 Chronic myeloproliferative disease (principal)

== ENCOUNTER → 2019-03-17 | Outpatient (CLI) | payer MEDICARE ==
[2019-03-17 10:37] LABS: HEMATOCRIT 32.5 % (37.0-47.0); HEMOGLOBIN 10.2 g/dl (12.0-16.0); MEAN CELL VOLUME 117.3 fl (81.0-99.0); MEAN CORPUSCULAR HGB 36.8 pg (27.0-31.0); MEAN CORPUSCULAR HGB CONC 31.4 g/dl (33.0-37.0); MEAN PLATELET VOLUME 10.5 fl (9.6-12.3); PLATELET COUNT AUTOMATED 138 10*3/uL (130-400); RED BLOOD COUNT 2.77 10*6/uL (4.10-5.10); WHITE BLOOD COUNT 2.6 10*3/uL (4.8-10.8)
[2019-03-17 11:09] LABS: BASOPHILS 2 % (0-1); PLATELET SUFFICIENCY NORMAL (NORMAL); POLYCHROMASIA SLIGHT; SCHISTOCYTES FEW; TOTAL CELLS COUNTED 100 #CELLS
== END | disposition home or self-care (01) ==
LOC: LAB 01:55
PROVIDERS: Internal Medicine
DX: D47.1 Chronic myeloproliferative disease (principal)

== ENCOUNTER 2019-07-02 22:36 | Emergency (ER) | payer MEDICARE ==
[~2019-07-02] VITALS: Ht 152.4 cm; Wt 62.1 kg
--- NOTE | ~2019-07-02 | EKG ---
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
[2019-07-02 23:53] LABS: BASO % 0.2 % (0.0-1.0); EOS # 0.2 10*3/uL (0.0-0.4); EOS % 1.7 % (1.0-4.0); HEMATOCRIT 30.9 % (37.0-47.0); LYMPH # 1.6 10*3/uL (1.3-4.4); LYMPH % 16.7 % (27.0-41.0); MEAN CELL VOLUME 106.9 fl (81.0-99.0); MEAN CORPUSCULAR HGB 34.6 pg (27.0-31.0); MEAN CORPUSCULAR HGB CONC 32.4 g/dl (33.0-37.0); MEAN PLATELET VOLUME 10.6 fl (9.6-12.3); MONO # 0.7 10*3/uL (0.1-1.0); MONO % 7.1 % (3.0-9.0); NEUT # 6.9 10*3/uL (2.3-7.9); NEUT % 73.1 % (47.0-73.0); PLATELET COUNT AUTOMATED 289 10*3/uL (130-400); RED BLOOD COUNT 2.89 10*6/uL (4.10-5.10); RED CELL DISTRI WIDTH 15.3 % (0-14.5); WHITE BLOOD COUNT 9.4 10*3/uL (4.8-10.8)
[2019-07-03 00:10] LABS: ALBUMIN 3.7 gm/dl (3.1-4.5); CREATININE 2.17 mg/dL (0.55-1.02); POTASSIUM 3.2 mmol/L (3.5-5.1); TOTAL PROTEIN 7.5 gm/dL (6.4-8.2)
[2019-07-03 01:35] VITALS: BP 104/50
[2019-07-03 02:27] LABS: BILIRUBIN NEGATIVE (NEGATIVE); BLOOD NEGATIVE (NEGATIVE); CLARITY CLEAR (CLEAR); COLOR YELLOW (YELLOW); GLUCOSE NEGATIVE (NEGATIVE); KETONE NEGATIVE (NEGATIVE); LEUKO ESTERASE NEGATIVE (NEGATIVE); NITRITE NEGATIVE (NEGATIVE); UROBILINOGEN 0.2 E.U./dl (0.2-1.0)
[2019-07-03 02:35] LABS: BACTERIA TRACE; WBC 0-2 wbc/hpf (0-5)
== END 2019-07-03 02:37 | disposition short-term general hospital (02) ==
LOC: ED 22:36
PROVIDERS: Physician Assistant
DX: S72.142A Displaced intertrochanteric fracture of left femur, initial encounter for closed fracture (principal); S09.90XA Unspecified injury of head, initial encounter; F10.920 Alcohol use, unspecified with intoxication, uncomplicated; N18.4 Chronic kidney disease, stage 4 (severe); J44.9 Chronic obstructive pulmonary disease, unspecified; Z87.891 Personal history of nicotine dependence; Z90.49 Acquired absence of other specified parts of digestive tract; Z79.82 Long term (current) use of aspirin; Z79.899 Other long term (current) drug therapy; W17.89XA Other fall from one level to another, initial encounter; Y93.89 Activity, other specified; Y92.89 Other specified places as the place of occurrence of the external cause; Y99.8 Other external cause status

== ENCOUNTER 2019-07-08 10:30 | Inpatient (IN) | payer MEDICARE ==
[~2019-07-08] VITALS: Ht 152.4 cm; Wt 62.1 kg
[2019-07-08 10:31] VITALS: BP 103/41
[2019-07-08 11:33] LABS: BASO % 0.2 % (0.0-1.0); EOS # 0.1 10*3/uL (0.0-0.4); EOS % 2.9 % (1.0-4.0); HEMOGLOBIN 7.1 g/dl (12.0-16.0); LYMPH # 0.8 10*3/uL (1.3-4.4); LYMPH % 16.6 % (27.0-41.0); MEAN CORPUSCULAR HGB 32.7 pg (27.0-31.0); MEAN CORPUSCULAR HGB CONC 30.9 g/dl (33.0-37.0); MEAN PLATELET VOLUME 10.8 fl (9.6-12.3); MONO # 0.4 10*3/uL (0.1-1.0); MONO % 9.8 % (3.0-9.0); NEUT # 3.1 10*3/uL (2.3-7.9); NEUT % 69.6 % (47.0-73.0); PLATELET COUNT AUTOMATED 159 10*3/uL (130-400); RED BLOOD COUNT 2.17 10*6/uL (4.10-5.10); RED CELL DISTRI WIDTH 17.3 % (0-14.5); WHITE BLOOD COUNT 4.5 10*3/uL (4.8-10.8)
--- NOTE | 2019-07-08 11:42 | NUR ---
PT UP TO BEDSIDE COMMODE WITH ASSIST X2.
[2019-07-08 11:43] LABS: ACT PARTIAL THROMBO TIME 41.3 SECONDS (20.0-32.1); INTERNATIONAL NORM RATIO 0.9 (2.0-3.5)
[2019-07-08 11:49] LABS: ALBUMIN 2.3 gm/dl (3.1-4.5); ALKALINE PHOSPHATASE 45 U/L (45-117); BUN 30 mg/dl (7-24); CHLORIDE 112 mmol/L (98-107); CREATININE 1.59 mg/dL (0.55-1.02); LIPASE 50 U/L (73-393); POTASSIUM 3.8 mmol/L (3.5-5.1); SGOT/AST 26 IU/L (3-35); SGPT/ALT 19 U/L (12-78); SODIUM 141 mmol/L (136-145); TOTAL PROTEIN 5.4 gm/dL (6.4-8.2)
[2019-07-08 11:50] LABS: TROPONIN I < 0.015 ng/ml (<0.045)
[2019-07-08 11:55] LABS: BILIRUBIN NEGATIVE (NEGATIVE); BLOOD TRACE-INTACT (NEGATIVE); CLARITY SL CLOUDY (CLEAR); COLOR YELLOW (YELLOW); GLUCOSE NEGATIVE (NEGATIVE); KETONE NEGATIVE (NEGATIVE); LEUKO ESTERASE 1+ (NEGATIVE); NITRITE NEGATIVE (NEGATIVE); PH 5.5 (5.0-9.0); UROBILINOGEN 0.2 E.U./dl (0.2-1.0)
[2019-07-08 12:07] LABS: BACTERIA 2+
--- NOTE | 2019-07-08 12:59 | NUR ---
PTS LEFT HIP DRESSING WAS CHANGED.
[2019-07-08 13:45] VITALS: BP 126/36
--- NOTE | 2019-07-08 14:01 | NUR ---
PT STATES SHE IS FEELING SLIGHTLY BETTER AFTER FETANYL. IS FEELING TIRED.
[2019-07-08 14:24] VITALS: BP 131/32
[2019-07-08 16:00] VITALS: BP 106/55
--- NOTE | 2019-07-08 16:00 | NUR ---
Time: 1599 A 73 year old FEMALE admitted to 5E under services of EARL INIGUEZ DO. Pt. arrived via bed from ER. Chief complaint: ABD PAIN,NAUSEA AND VOMITING. SIMA CEBALLOS
--- NOTE | 2019-07-08 18:33 | NUR ---
NORCO 5/325 GIVEN FOR C/O PAIN TO LEFT HIP,03/13.
[2019-07-08] MEDS ORDERED: HYDROXYUREA500 MG PO (19:20)
[2019-07-08] MEDS ORDERED: OXYCODONE HCL5 M1 PO (19:22)
--- NOTE | 2019-07-08 19:49 | NUR ---
PT REFUSED TO ALLOW MEASUREMENTS TO LEFT HIP SURGICAL SITES. PHOTOS HAD BEEN TAKEN IN ER. PT STATED "SHE HAD BEEN ROLLED AROUND ENOUGH". NOTED PINO TO LEFT HIP AREA X2 ARE WELL APPROXIMATED.DRESSING HAD PEELED AWAY ON TOP DRESSING.REINFORCED PERR PT REQUEST.
[2019-07-08 20:00] VITALS: BP 113/51
[2019-07-09] VITALS (11 sets, daily range): BP systolic 110–141; BP diastolic 44–82
--- NOTE | 2019-07-09 06:30 | NUR ---
JULIANE AMEZCUA [id number] Please refer to the physician's history and physical for past medical history, comorbid conditions, and allergies. Diagnosis: NAUSEA AND VOMITING ABDOMINAL PAIN Luke Score: 16,AT RISK WOUND DESCRIPTIONS: Wound Number: 1 Location of the wound: Left hip Type of wound: surgical Thickness: Partial Size: 7.2cm x 0.1cm x <0.1cm Tunneling: none Undermining: none Sinus Tract: none Presence of Exudate: serosanguineous Amount: Light Color: Red Odor: None Periwound Skin Appearance: Normal Wound edges: approximated with 15 laure Pain (associated with wound): none at time of assessment How does patient state this happened? pt stated she had surgery in [place] and is unsure of when he follow up appointment is Wound Number: 2 Location of the wound: Left medial thigh Type of wound: surgical Thickness: Partial Size: 3.1cm x 0.1cm x <0.1cm Tunneling: none Undermining: none Sinus Tract: none Presence of Exudate: none Amount: none Color: Red Odor: None Periwound Skin Appearance: Normal Wound edges: approximated with 6 laure Pain (associated with wound): none at time of assessment How does patient state this happened? pt stated she had surgery in [place] and is unsure of when he follow up appointment is Wound Number: 3 Location of the wound: Left distal thigh Type of wound: surgical Thickness: Partial Size: 1.5cm x 0.1cm x <0.1cm Tunneling: none Undermining: none Sinus Tract: none Presence of Exudate: none Amount: none Color: Red Odor: None Periwound Skin Appearance: Normal Wound edges: approximated with 4 laure Pain (associated with wound): none at time of assessment How does patient state this happened? pt stated she had surgery in [place] and is unsure of when he follow up appointment is Wound Number: 4 Location of the wound: left proximal thigh Thickness: Partial Size: 0.3cm x 0.2cm x 0.1cm Tunneling: none Undermining: none Sinus Tract: none Presence of Exudate: serosanguineous Amount: Light Color: Red Odor: None Periwound Skin Appearance: Normal Wound edges: approximated Pain (associated with wound): none at time of assessment How does patient state this happened? pt stated she had surgery in [place] and is unsure of when he follow up appointment is Surface the patient is resting on: Isoflex SKIN PREVENTION RECOMMENDATION: 1. Pressure redistribution support surface as appropriate 2. Elevate heels 3. Remove boots/TEDS every shift and reapply 4. Head of bed 30 degrees as tolerated 5. Assess nutrition and hydration 6. Manage moisture 7. Avoid the use of containment devices while in bed 8. Use absorptive products on surfaces limit layers of linens on bed 9. Turn and reposition every 1-2 hours in bed and every 1 hour in chair as tolerated 10. Weight shifts every 15 minutes while up in chair 11. Offloading with pillows or device to keep heels elevated off bed 12. Monitor skin at least every shift 13. Inspect under medical devices twice a day WOUND TREATMENT RECOMMENDATIONS: Cleanse left hip, left thigh proximal, left thigh medial and left thigh distal with nss and apply dsd daily and prn for soiling. Have patient follow up with surgeon upon discharge.
[2019-07-09 06:56] LABS: HEMATOCRIT 21.2 % (37.0-47.0); MEAN CORPUSCULAR HGB 32.2 pg (27.0-31.0); MEAN CORPUSCULAR HGB CONC 30.7 g/dl (33.0-37.0); MEAN PLATELET VOLUME 10.8 fl (9.6-12.3); PLATELET COUNT AUTOMATED 148 10*3/uL (130-400); RED BLOOD COUNT 2.02 10*6/uL (4.10-5.10); RED CELL DISTRI WIDTH 17.2 % (0-14.5); WHITE BLOOD COUNT 3.4 10*3/uL (4.8-10.8)
[2019-07-09 06:59] LABS: HEMOGLOBIN 6.5 g/dl (12.0-16.0)
--- NOTE | 2019-07-09 07:00 | NUR ---
DR LUX NOTIFIED OF CRITICAL HGB
[2019-07-09 07:21] LABS: CREATININE 1.4 mg/dL (0.55-1.02); PHOSPHOROUS 1.5 mg/dL (2.5-4.9); POTASSIUM 3.6 mmol/L (3.5-5.1)
[2019-07-09 07:27] LABS: THYROID STIM HORMONE (HS) 3.54 uIU/ml (0.358-4.75)
--- NOTE | 2019-07-09 07:30 | NUR ---
VITALS STABLE. ALERT AND ORIENTED X 3. PLEASANT AND COOPERATIVE. MIYA. CAP REFILL <3 SECONDS. SKIN TURGOR NON-TENTING. POSITIVE PEDAL PULSES. HEART SOUNDS NORMAL. LUNG SOUNDS DIMINISHED, BUT CLEAR THROUGHOUT. RESPIRATIONS EASY AND NON-LABORED. PO2 98% ON 2L N/C. ABDOMEN SOFT, NON-DISTENDED, SLIGHTLY TENDER TO TOUCH. BOWEL SOUNDS X 4. SKIN WARM, PINK AND DRY. RIGHT [employer] INTACT- NO REDNESS OR SWELLING. L HIP DRESSING DRY AND INTACT. PT COMPLAINED OF 4/10 STOMACH PAIN, BUT STATES "IT'S NOT THAT BAD" WHEN OFFERED MEDICINE. NO OTHER COMPLAINTS AT THIS TIME. WILL CONTINUE TO ASSESS. SARA FINN [facility]
[2019-07-09 07:42] LABS: PLATELET SUFFICIENCY NORMAL (NORMAL); POLYCHROMASIA SLIGHT; TOTAL CELLS COUNTED 100 #CELLS
--- NOTE | 2019-07-09 08:00 | NUR ---
PATIENT SLEEPING, AWAKENS EASILY. ORIENTED X 3. RESPIRATIONS EASY. LUNGS DIMINISHED. ADMITS TO OCCASIONAL DRY COUGH. BM 07/08/18. DENIES N/V/D. DRESSING TO RIGHT HIP CLEAN, DRY AND INTACT. DENIES DISCOMFORT AT THIS TIME.
--- NOTE | 2019-07-09 08:35 | NUR ---
PT LEAVING TO GO TO ULTRASOUND VIA STRETCHER. CONDITON STABLE. SARA FINN SPNRCC
--- NOTE | 2019-07-09 09:00 | NUR ---
PT RETURNED FROM ULTRASOUND VIA STRETCHER. CONDITION STABLE. WILL CONTINUE TO ASSESS. SARA FINN SPOMARCC
--- NOTE | 2019-07-09 12:58 | NUR ---
PRECERT is required for patient to return to [facility]. PT/OT Evals will be needed for the PRECERT. -EMERY Quintanilla
--- NOTE | 2019-07-09 13:47 | NUR ---
PT IS CURRENTLY A PT AT [facility] WHERE SHE WAS SENT FOR REHAB AFTER RECENT HIP SURGERY AFTER FALLING. STATES SHE WAS ONLY AT [facility] ONE DAY AND WAS FEELING VERY WEAK AND TIRED SO WAS BROUGHT TO ER AND ADMITTED HERE. PT STATES HER DISCHARGE PLANS ARE TO RETURN TO [facility] WHEN MEDICALLY STABLE TO CONTINUE HER REHAB BEFORE GOING HOME. WILL CONTINUE TO FOLLOW.
--- NOTE | 2019-07-09 15:34 | NUR ---
Nursing screen received and chart reviewed. Patient was at [facility] for rehab s/p hip surgery x 1 day before hospitalization. Recommend OT evaluation for d/c planning. Thank you. Conchita Everett OtR/L
[2019-07-09 17:21] LABS: BASO % 0.5 % (0.0-1.0); EOS # 0.2 10*3/uL (0.0-0.4); EOS % 3.8 % (1.0-4.0); HEMATOCRIT 31.5 % (37.0-47.0); HEMOGLOBIN 10.2 g/dl (12.0-16.0); LYMPH # 0.7 10*3/uL (1.3-4.4); MEAN CORPUSCULAR HGB 31.5 pg (27.0-31.0); MEAN CORPUSCULAR HGB CONC 32.4 g/dl (33.0-37.0); MEAN PLATELET VOLUME 10.3 fl (9.6-12.3); MONO # 0.5 10*3/uL (0.1-1.0); NEUT # 2.8 10*3/uL (2.3-7.9); PLATELET COUNT AUTOMATED 143 10*3/uL (130-400); RED BLOOD COUNT 3.24 10*6/uL (4.10-5.10); RED CELL DISTRI WIDTH 17.9 % (0-14.5); WHITE BLOOD COUNT 4.2 10*3/uL (4.8-10.8)
[2019-07-09 17:22] LABS: MEAN CELL VOLUME 97.2 fl (81.0-99.0)
--- NOTE | 2019-07-09 18:30 | NUR ---
Got patient out of bed. Up to bedside commode. Voided 1000ml no BM. Patient was then seated in chair for dinner. Patient voiced "I can't" but tolerated fairly well. Patient was encouraged to get out of bed to assist the healing process.
--- NOTE | 2019-07-09 20:10 | NUR ---
SITTING UP IN CHAIR. 02 INTACT 2 2LPM VIA NASAL CANNULA. PT. ALERT/ORIENTED. LUNGS ARE CLEAR; SLIGHTLY DIMINISHED IN THE BASES. NO COUGH NOTED AT THIS TIME. FABIENNE HOSE ON BILATERALLY. PT. VOICES NO C/O PAIN OR DISCOMFORT AT THIS TIME. CALL LIGHT WITHIN REACH.
[2019-07-10] VITALS: BP 116/53
--- NOTE | 2019-07-10 04:00 | NUR ---
RESTING IN BED WITH EYES CLOSED; IV FLUIDS INFUSING WITHOUT DIFFICULTY. CALL LIGHT WITHIN REACH.
[2019-07-10 07:32] LABS: BASO % 0.5 % (0.0-1.0); EOS # 0.2 10*3/uL (0.0-0.4); EOS % 3.9 % (1.0-4.0); HEMATOCRIT 30.7 % (37.0-47.0); LYMPH # 0.6 10*3/uL (1.3-4.4); LYMPH % 15.5 % (27.0-41.0); MEAN CELL VOLUME 97.5 fl (81.0-99.0); MEAN CORPUSCULAR HGB 31.7 pg (27.0-31.0); MEAN CORPUSCULAR HGB CONC 32.6 g/dl (33.0-37.0); MEAN PLATELET VOLUME 10.8 fl (9.6-12.3); MONO # 0.6 10*3/uL (0.1-1.0); MONO % 14.4 % (3.0-9.0); NEUT # 2.5 10*3/uL (2.3-7.9); NEUT % 63.9 % (47.0-73.0); PLATELET COUNT AUTOMATED 151 10*3/uL (130-400); RED BLOOD COUNT 3.15 10*6/uL (4.10-5.10); RED CELL DISTRI WIDTH 17.9 % (0-14.5); WHITE BLOOD COUNT 3.9 10*3/uL (4.8-10.8)
[2019-07-10 08:00] VITALS: BP 132/57
[2019-07-10 08:08] LABS: ALBUMIN 2.3 gm/dl (3.1-4.5); CREATININE 1.15 mg/dL (0.55-1.02); PHOSPHOROUS 1.3 mg/dL (2.5-4.9); POTASSIUM 3.4 mmol/L (3.5-5.1); TOTAL PROTEIN 5.2 gm/dL (6.4-8.2)
[2019-07-10 12:00] VITALS: BP 132/84
[2019-07-10 16:00] VITALS: BP 122/59
--- NOTE | 2019-07-10 18:39 | NUR ---
PT DENIED COMPLAINTS OF NV TODAY. HANDLED MEAL WELL. BOWEL MOVEMENT THIS EVENING.
[2019-07-10 20:00] VITALS: BP 113/58
--- NOTE | 2019-07-10 20:09 | NUR ---
RESTING IN BED WITH EYES CLOSED. 02 INTACT AT 2 LITERS VIA N/C. LUNGS WITH EXPIRATORY WHEEZES NOTED POSTERIORLY. MOIST COUGH NOTED AT THIS TIME; NONPRODUCTIVE. DRESSING TO LEFT HIP DRY & INTACT. FABIENNE JAIN/SCD'S ON. CALL LIGHT WITHIN REACH. PT. VOICES NO C/O AT THIS TIME.
--- NOTE | 2019-07-10 22:00 | NUR ---
TOOK PO MEDICATION WITHOUT DIFFICULTY; VOICES NO C/O. CALL LIGHT WITHIN REACH.
[2019-07-11] VITALS: BP 115/53
[2019-07-11 08:00] VITALS: BP 125/54
[2019-07-11 12:00] VITALS: BP 138/69
[2019-07-11 16:00] VITALS: BP 119/91
[2019-07-11 20:00] VITALS: BP 136/63
[2019-07-12] VITALS: BP 114/48
--- NOTE | 2019-07-12 01:00 | NUR ---
ASSISTED TO BEDSIDE COMMODE WITH ASSISTANCE OF PA. DRESSING CHANGED TO LEFT HIP D/T OTHER DRESSING COMING OFF. SMALL AMOUNT OF SEROUSANGUINOUS DRAINING ON OLD DRESSING. WILL CONTINUE TO MONITOR. CALL LIGHT IN REACH.
[2019-07-12 06:23] LABS: BASO % 0.5 % (0.0-1.0); EOS # 0.2 10*3/uL (0.0-0.4); HEMATOCRIT 30.2 % (37.0-47.0); HEMOGLOBIN 9.6 g/dl (12.0-16.0); LYMPH # 0.8 10*3/uL (1.3-4.4); MEAN CELL VOLUME 99.3 fl (81.0-99.0); MEAN CORPUSCULAR HGB 31.6 pg (27.0-31.0); MEAN CORPUSCULAR HGB CONC 31.8 g/dl (33.0-37.0); MEAN PLATELET VOLUME 11.1 fl (9.6-12.3); MONO # 0.5 10*3/uL (0.1-1.0); MONO % 12.5 % (3.0-9.0); NEUT # 2.5 10*3/uL (2.3-7.9); PLATELET COUNT AUTOMATED 157 10*3/uL (130-400); RED BLOOD COUNT 3.04 10*6/uL (4.10-5.10); RED CELL DISTRI WIDTH 17.1 % (0-14.5)
[2019-07-12 06:37] LABS: CREATININE 1.36 mg/dL (0.55-1.02)
--- NOTE | 2019-07-12 07:38 | NUR ---
PRECERT can only be started when PT/OT EVALs are complete. KILN HAND faxing updates to [facility]. -EMERY Quintanilla
[2019-07-12 08:00] VITALS: BP 131/57
--- NOTE | 2019-07-12 10:35 | NUR ---
Occupational therapy orders received and OT eval completed in full on floor five. Patient precautions include fall risk, ww use, 2L O2, and L LE WBAT. Per OT eval, OT recommends SNF. Patient would benefit from continued OT treatment to maximize independence in ADLs, functional mobility, and transfers. Patient complexity is moderate, [id number]. Thank you for the referral. Vika Camacho, OTR/L
--- NOTE | 2019-07-12 10:40 | NUR ---
PHYSICAL THERAPY Viry completed moderate level of [id number] recommend SNF at discharg PT to work on transfers, amb with AD, strengthening and safety and balance Full report to follow, thank you Khushbu Stewart PT
--- NOTE | 2019-07-12 11:38 | NUR ---
PT/OT Paul faxed to [facility]. PRECERT will be started once she receives the fax. -EMERY Quintanilla
[2019-07-12 12:00] VITALS: BP 131/54
--- NOTE | 2019-07-12 13:11 | NUR ---
PRECERT has been obtained for the patient to return to [facility]. VENEER MEASURER notified Kaylan Mckeon for Hospitalist. -EMERY Quintanilla
[2019-07-12] MEDS ORDERED: TYLENOL325 M2 PO (14:00)
--- NOTE | 2019-07-12 14:20 | NUR ---
[employer] W[employer]ER received notice of discharge. SUB[employer]SEM[employer]IES WIRER spoke with [employer] Sewing Machine Operatorgerard Juan. SUB[employer]SEM[employer]IES WIRER spoke with Marco A Self and scheduled a 5pm transport for the patient to go back to [facility]. [employer] W[employer]ER notified [employer] Sewing Machine Operatorgerard Juan, [employer] W[employer]ER notifed [facility]. [employer]SEMBLIES WIRER spoke with patients jose Carcamo. He is aware of discharge. [employer]SEM[employer] WIRER will fax discharge orders to [facility]. -EMERY Quintanilla
--- NOTE | 2019-07-12 16:20 | NUR ---
Discharge instructions reviewed with patient/family. Patient receptive and verbalizes understanding. Follow-up care arranged. Written instructions given to patient/family. PRADEEP CHRISTIANSON
--- NOTE | 2019-07-12 16:25 | NUR ---
RICHIE REMOVED. ZENONSHELIA HERE TO PICK PATIENT UP. PATIENT BELONGINGS SENT WITH PATIENTS SON.
--- NOTE | 2019-07-12 16:30 | NUR ---
ATTEMPTED TO CALL REPORT TO VO. NO ANSWER
--- NOTE | 2019-07-12 17:56 | NUR ---
[facility]. NURSE STATED THEY DO NOT NEED REPORT.
== END 2019-07-12 16:25 | disposition other institution (70) | DRG 388 ==
LOC: ED 10:30 → EDHOLD 14:22 → 5E 14:22
PROVIDERS: Emergency Medicine; Family Medicine; Internal Medicine; Student in an Organized Health Care Education/Training Program; ADMIT Family Medicine
PROC: 30233N1 Transfusion of Nonautologous Red Blood Cells into Peripheral Vein, Percutaneous Approach (ICD-10-PCS; principal; 2019-07-09)
DX: K56.7 Ileus, unspecified (principal); E43 Unspecified severe protein-calorie malnutrition; J98.11 Atelectasis; N17.9 Acute kidney failure, unspecified; J96.11 Chronic respiratory failure with hypoxia; N18.4 Chronic kidney disease, stage 4 (severe); J44.9 Chronic obstructive pulmonary disease, unspecified; R00.0 Tachycardia, unspecified; F41.8 Other specified anxiety disorders; Z96.651 Presence of right artificial knee joint; K57.90 Diverticulosis of intestine, part unspecified, without perforation or abscess without bleeding; E78.5 Hyperlipidemia, unspecified; F10.10 Alcohol abuse, uncomplicated; D53.9 Nutritional anemia, unspecified; I12.9 Hypertensive chronic kidney disease with stage 1 through stage 4 chronic kidney disease, or unspecified chronic kidney disease; D47.3 Essential (hemorrhagic) thrombocythemia; Z99.81 Dependence on supplemental oxygen; Z87.01 Personal history of pneumonia (recurrent); Z90.49 Acquired absence of other specified parts of digestive tract; Z98.51 Tubal ligation status; Z98.42 Cataract extraction status, left eye; Z87.891 Personal history of nicotine dependence; Z80.1 Family history of malignant neoplasm of trachea, bronchus and lung; Z82.49 Family history of ischemic heart disease and other diseases of the circulatory system; Z79.82 Long term (current) use of aspirin; Z79.899 Other long term (current) drug therapy; Z71.41 Alcohol abuse counseling and surveillance of alcoholic; Z68.26 Body mass index [BMI] 26.0-26.9, adult

== ENCOUNTER 2019-12-12 20:39 | Emergency (ER) | payer MEDICARE ==
[~2019-12-12] VITALS: Ht 152.4 cm; Wt 61.2 kg
[~2019-12-12 20:39] MED LIST changes: +OXYCODONE HCL5 M1 PO; +TYLENOL325 M2 PO
[2019-12-12 23:26] LABS: BASO % 0.2 % (0.0-1.0); EOS % 0.8 % (1.0-4.0); HEMATOCRIT 26.9 % (37.0-47.0); LYMPH # 0.6 10*3/uL (1.3-4.4); LYMPH % 12.5 % (27.0-41.0); MEAN CELL VOLUME 107.6 fl (81.0-99.0); MEAN CORPUSCULAR HGB 35.2 pg (27.0-31.0); MEAN CORPUSCULAR HGB CONC 32.7 g/dl (33.0-37.0); MEAN PLATELET VOLUME 9.7 fl (9.6-12.3); MONO # 0.4 10*3/uL (0.1-1.0); MONO % 7.4 % (3.0-9.0); NEUT # 3.7 10*3/uL (2.3-7.9); NEUT % 78.5 % (47.0-73.0); PLATELET COUNT AUTOMATED 175 10*3/uL (130-400); RED CELL DISTRI WIDTH 13.5 % (0-14.5); WHITE BLOOD COUNT 4.7 10*3/uL (4.8-10.8)
[2019-12-12 23:39] LABS: ACT PARTIAL THROMBO TIME 24.8 SECONDS (20.0-32.1)
[2019-12-12 23:43] LABS: ALBUMIN 3.5 gm/dl (3.1-4.5); CREATININE 1.89 mg/dL (0.55-1.02); POTASSIUM 4.2 mmol/L (3.5-5.1); TOTAL PROTEIN 6.7 gm/dL (6.4-8.2)
[2019-12-13 01:55] VITALS: BP 124/44
== END 2019-12-13 02:00 | disposition short-term general hospital (02) ==
LOC: ED 20:39
PROVIDERS: Nurse Practitioner Family
DX: S72.391A Other fracture of shaft of right femur, initial encounter for closed fracture (principal); M97.11XA Periprosthetic fracture around internal prosthetic right knee joint, initial encounter; J44.9 Chronic obstructive pulmonary disease, unspecified; E78.5 Hyperlipidemia, unspecified; I12.9 Hypertensive chronic kidney disease with stage 1 through stage 4 chronic kidney disease, or unspecified chronic kidney disease; N18.4 Chronic kidney disease, stage 4 (severe); Z99.2 Dependence on renal dialysis; Z79.899 Other long term (current) drug therapy; Z79.82 Long term (current) use of aspirin; Z87.891 Personal history of nicotine dependence; W18.39XA Other fall on same level, initial encounter; Y93.89 Activity, other specified; Y92.89 Other specified places as the place of occurrence of the external cause; Y99.8 Other external cause status

== ENCOUNTER → 2020-05-26 | Outpatient (CLI) | payer MEDICARE ==
[~2020-05-26] MED LIST changes: +ALLOPURINOL100 MG PO; +BONIVA150 MG PO
[2020-05-26 16:51] LABS: HEMATOCRIT 31.6 % (37.0-47.0); MEAN CELL VOLUME 114.1 fl (81.0-99.0); MEAN CORPUSCULAR HGB 34.3 pg (27.0-31.0); MEAN CORPUSCULAR HGB CONC 30.1 g/dl (33.0-37.0); PLATELET COUNT AUTOMATED 475 10*3/uL (130-400); RED BLOOD COUNT 2.77 10*6/uL (4.10-5.10); RED CELL DISTRI WIDTH 15.9 % (0-14.5); WHITE BLOOD COUNT 6.7 10*3/uL (4.8-10.8)
[2020-05-26 17:08] LABS: BILIRUBIN Negative (Negative); BLOOD Negative (Negative); COLOR Yellow (Yellow); GLUCOSE Negative (Negative); KETONE Negative (Negative); LEUKO ESTERASE 3+ (Negative); NITRITE Negative (Negative); PH 5.5 (4.5-8.0); UROBILINOGEN 0.2 E.U./dl (0.0-1.0)
[2020-05-26 17:16] LABS: CLARITY Cloudy (Clear)
[2020-05-26 17:25] LABS: BACTERIA 4+; RBC 0-2 rbc/hpf (0-2); WBC 16-20 wbc/hpf (0-5)
[2020-05-26 17:29] LABS: ALBUMIN 3.9 gm/dl (3.1-4.5); CREATININE 2.41 mg/dL (0.55-1.02); POTASSIUM 3.8 mmol/L (3.5-5.1)
[2020-05-26 17:34] LABS: URINE CREATININE RANDOM 79.9 mg/dL
[2020-05-26 17:39] LABS: VITAMIN D, 25-HYDROXY 86.3 ng/mL (30-100)
[2020-05-26 18:05] LABS: FERRITIN 2533.8 ng/mL (10.0-291.0)
[2020-05-26 19:52] LABS: PLATELET SUFFICIENCY HIGH (NORMAL); TOTAL CELLS COUNTED 100 #CELLS
== END | disposition home or self-care (01) ==
LOC: LAB 15:35
PROVIDERS: ATTEND Internal Medicine Nephrology
DX: N18.4 Chronic kidney disease, stage 4 (severe) (principal); D63.1 Anemia in chronic kidney disease; N25.81 Secondary hyperparathyroidism of renal origin; Z79.899 Other long term (current) drug therapy

== ENCOUNTER 2020-06-01 12:29 | Inpatient (IN) | payer MEDICARE ==
[~2020-06-01] VITALS: Ht 152.4 cm; Wt 60.0 kg
[2020-06-01] VITALS (7 sets, daily range): BP systolic 92–117; BP diastolic 27–83
[~2020-06-01 12:29] MED LIST changes: -ALLOPURINOL100 MG PO; -BONIVA150 MG PO
[2020-06-01 13:34] LABS: HEMATOCRIT 29.2 % (37.0-47.0); MEAN CELL VOLUME 113.2 fl (81.0-99.0); MEAN CORPUSCULAR HGB 34.1 pg (27.0-31.0); MEAN CORPUSCULAR HGB CONC 30.1 g/dl (33.0-37.0); MEAN PLATELET VOLUME 10.8 fl (9.6-12.3); PLATELET COUNT AUTOMATED 308 10*3/uL (130-400); RED BLOOD COUNT 2.58 10*6/uL (4.10-5.10); RED CELL DISTRI WIDTH 16.4 % (0-14.5); WHITE BLOOD COUNT 12.3 10*3/uL (4.8-10.8)
[2020-06-01 13:44] LABS: ACT PARTIAL THROMBO TIME 30.1 SECONDS (20.0-32.1)
[2020-06-01 13:51] LABS: ALBUMIN 2.8 gm/dl (3.1-4.5); ALKALINE PHOSPHATASE 61 U/L (45-117); BUN 66 mg/dl (7-24); CHLORIDE 103 mmol/L (98-107); CREATININE 2.35 mg/dL (0.55-1.02); LIPASE 37 U/L (73-393); POTASSIUM 3.9 mmol/L (3.5-5.1); SGOT/AST 48 IU/L (3-35); SGPT/ALT 54 U/L (12-78); SODIUM 140 mmol/L (136-145); TOTAL PROTEIN 6.7 gm/dL (6.4-8.2)
[2020-06-01 13:53] LABS: OVALOCYTES FEW; PLATELET SUFFICIENCY NORMAL (NORMAL); TOTAL CELLS COUNTED 100 #CELLS; TROPONIN I < 0.015 ng/ml (<0.045); VACUOLATION OF NEUTROPHILS SLIGHT
[2020-06-01 13:54] LABS: ROULEAUX SLIGHT; TOXIC GRANULATION SLIGHT
[2020-06-01] MEDS ORDERED: BONIVA150 MG PO (18:40)
[2020-06-02] VITALS: BP 98/50
[2020-06-02 07:29] LABS: MEAN CELL VOLUME 119.7 fl (81.0-99.0); MEAN CORPUSCULAR HGB CONC 29.3 g/dl (33.0-37.0); MEAN PLATELET VOLUME 11.2 fl (9.6-12.3); PLATELET COUNT AUTOMATED 298 10*3/uL (130-400); RED BLOOD COUNT 2.34 10*6/uL (4.10-5.10); RED CELL DISTRI WIDTH 16.8 % (0-14.5); WHITE BLOOD COUNT 7.2 10*3/uL (4.8-10.8)
[2020-06-02 07:38] LABS: ACT PARTIAL THROMBO TIME 40.8 SECONDS (20.0-32.1); INTERNATIONAL NORM RATIO 1.1 (2.0-3.5)
[2020-06-02 07:40] LABS: ALBUMIN 2.4 gm/dl (3.1-4.5); CREATININE 1.94 mg/dL (0.55-1.02); POTASSIUM 4.2 mmol/L (3.5-5.1); TOTAL PROTEIN 6.3 gm/dL (6.4-8.2)
[2020-06-02 07:48] LABS: PLATELET SUFFICIENCY NORMAL (NORMAL); POLYCHROMASIA SLIGHT; ROULEAUX MARKED; SCHISTOCYTES FEW; TOTAL CELLS COUNTED 100 #CELLS
[2020-06-02 07:53] LABS: FREE T4 1.1 ng/dl (0.76-1.46); THYROID STIM HORMONE (HS) 0.391 uIU/ml (0.358-4.75)
[2020-06-02 08:00] VITALS: BP 104/62
[2020-06-02 08:20] LABS: VITAMIN D, 25-HYDROXY 80.4 ng/mL (30-100)
[2020-06-02 12:00] VITALS: BP 121/51
[2020-06-02 16:00] VITALS: BP 117/64
[2020-06-02 20:00] VITALS: BP 129/64
[2020-06-03] VITALS: BP 107/51
[2020-06-03 06:24] LABS: ALBUMIN 2.4 gm/dl (3.1-4.5); CREATININE 1.78 mg/dL (0.55-1.02); POTASSIUM 3.3 mmol/L (3.5-5.1); TOTAL PROTEIN 5.8 gm/dL (6.4-8.2)
[2020-06-03 06:31] LABS: HEMATOCRIT 34.5 % (37.0-47.0); MEAN CORPUSCULAR HGB 34.2 pg (27.0-31.0); MEAN CORPUSCULAR HGB CONC 29.6 g/dl (33.0-37.0); MEAN PLATELET VOLUME 11.2 fl (9.6-12.3); PLATELET COUNT AUTOMATED 277 10*3/uL (130-400); RED BLOOD COUNT 2.98 10*6/uL (4.10-5.10); RED CELL DISTRI WIDTH 16.7 % (0-14.5); WHITE BLOOD COUNT 4.7 10*3/uL (4.8-10.8)
[2020-06-03 06:34] LABS: MEAN CELL VOLUME 115.8 fl (81.0-99.0)
[2020-06-03 07:31] LABS: BURR CELLS FEW; PLATELET SUFFICIENCY NORMAL (NORMAL); ROULEAUX SLIGHT; SCHISTOCYTES FEW; TOTAL CELLS COUNTED 100 #CELLS
[2020-06-03 08:00] VITALS: BP 116/53
[2020-06-03 12:00] VITALS: BP 103/59
[2020-06-03 16:00] VITALS: BP 104/55
[2020-06-03 20:00] VITALS: BP 102/52; BP 104/72
[2020-06-04] VITALS: BP 105/59
[2020-06-04 06:00] LABS: ALBUMIN 2.4 gm/dl (3.1-4.5); CREATININE 1.79 mg/dL (0.55-1.02); POTASSIUM 3.8 mmol/L (3.5-5.1); TOTAL PROTEIN 5.7 gm/dL (6.4-8.2)
[2020-06-04 06:13] LABS: HEMATOCRIT 25.8 % (37.0-47.0); MEAN CELL VOLUME 115.2 fl (81.0-99.0); MEAN CORPUSCULAR HGB 34.8 pg (27.0-31.0); MEAN CORPUSCULAR HGB CONC 30.2 g/dl (33.0-37.0); MEAN PLATELET VOLUME 11.4 fl (9.6-12.3); PLATELET COUNT AUTOMATED 337 10*3/uL (130-400); RED BLOOD COUNT 2.24 10*6/uL (4.10-5.10); RED CELL DISTRI WIDTH 16.5 % (0-14.5); WHITE BLOOD COUNT 5.7 10*3/uL (4.8-10.8)
[2020-06-04 07:50] LABS: ATYPICAL LYMPHS 1 % (0-0); TOTAL CELLS COUNTED 100 #CELLS
[2020-06-04 07:51] LABS: BURR CELLS FEW; OVALOCYTES FEW; PLATELET SUFFICIENCY NORMAL (NORMAL); ROULEAUX MODERATE; SCHISTOCYTES FEW
[2020-06-04 08:00] VITALS: BP 106/60
[2020-06-04 16:00] VITALS: BP 111/50
[2020-06-04 20:00] VITALS: BP 112/58
[2020-06-05] VITALS: BP 117/68
[2020-06-05 06:46] LABS: HEMATOCRIT 24.8 % (37.0-47.0); MEAN CELL VOLUME 114.8 fl (81.0-99.0); MEAN CORPUSCULAR HGB 34.3 pg (27.0-31.0); MEAN CORPUSCULAR HGB CONC 29.8 g/dl (33.0-37.0); MEAN PLATELET VOLUME 10.9 fl (9.6-12.3); PLATELET COUNT AUTOMATED 308 10*3/uL (130-400); RED BLOOD COUNT 2.16 10*6/uL (4.10-5.10); RED CELL DISTRI WIDTH 16.9 % (0-14.5); WHITE BLOOD COUNT 4.2 10*3/uL (4.8-10.8)
[2020-06-05 06:52] LABS: CREATININE 1.51 mg/dL (0.55-1.02); POTASSIUM 4.3 mmol/L (3.5-5.1)
[2020-06-05 07:29] LABS: PLATELET SUFFICIENCY NORMAL (NORMAL); TOTAL CELLS COUNTED 100 #CELLS
[2020-06-05 08:00] VITALS: BP 107/64
[2020-06-05 12:00] VITALS: BP 125/79
[2020-06-05 16:00] VITALS: BP 150/71
[2020-06-05 20:00] VITALS: BP 119/55
[2020-06-06] VITALS: BP 118/62
[2020-06-06 07:26] LABS: POTASSIUM 4.3 mmol/L (3.5-5.1)
[2020-06-06 07:32] LABS: CREATININE 1.58 mg/dL (0.55-1.02)
[2020-06-06 08:00] VITALS: BP 130/77
[2020-06-06 12:00] VITALS: BP 151/76
[2020-06-06 16:00] VITALS: BP 110/52
[2020-06-06 20:00] VITALS: BP 124/55
[2020-06-07] VITALS: BP 132/68
[2020-06-07 06:19] LABS: HEMATOCRIT 24.2 % (37.0-47.0); MEAN CELL VOLUME 115.8 fl (81.0-99.0); MEAN CORPUSCULAR HGB 34.4 pg (27.0-31.0); MEAN CORPUSCULAR HGB CONC 29.8 g/dl (33.0-37.0); MEAN PLATELET VOLUME 11.1 fl (9.6-12.3); PLATELET COUNT AUTOMATED 250 10*3/uL (130-400); RED BLOOD COUNT 2.09 10*6/uL (4.10-5.10); RED CELL DISTRI WIDTH 16.6 % (0-14.5); WHITE BLOOD COUNT 5.1 10*3/uL (4.8-10.8)
[2020-06-07 06:44] LABS: CREATININE 1.43 mg/dL (0.55-1.02); POTASSIUM 4.6 mmol/L (3.5-5.1)
[2020-06-07 07:03] LABS: BURR CELLS FEW; OVALOCYTES FEW; PLATELET SUFFICIENCY NORMAL (NORMAL); ROULEAUX SLIGHT; TOTAL CELLS COUNTED 100 #CELLS
[2020-06-07 08:00] VITALS: BP 132/57
[2020-06-07 12:00] VITALS: BP 145/56
[2020-06-07 16:00] VITALS: BP 136/61
[2020-06-07 20:00] VITALS: BP 119/52
[2020-06-08] VITALS: BP 135/51
[2020-06-08 08:00] VITALS: BP 151/65
[2020-06-08 12:00] VITALS: BP 121/63
[2020-06-08 16:00] VITALS: BP 142/67
[2020-06-08 20:00] VITALS: BP 127/62
[2020-06-09] VITALS: BP 137/51
[2020-06-09 06:08] LABS: HEMATOCRIT 24.4 % (37.0-47.0); MEAN CORPUSCULAR HGB 33.6 pg (27.0-31.0); MEAN CORPUSCULAR HGB CONC 29.5 g/dl (33.0-37.0); MEAN PLATELET VOLUME 11.2 fl (9.6-12.3); PLATELET COUNT AUTOMATED 228 10*3/uL (130-400); RED BLOOD COUNT 2.14 10*6/uL (4.10-5.10); RED CELL DISTRI WIDTH 16.1 % (0-14.5); WHITE BLOOD COUNT 5.9 10*3/uL (4.8-10.8)
[2020-06-09 06:27] LABS: ALBUMIN 2.4 gm/dl (3.1-4.5); POTASSIUM 4.7 mmol/L (3.5-5.1)
[2020-06-09 06:28] LABS: CREATININE 1.32 mg/dL (0.55-1.02)
[2020-06-09 06:50] LABS: PLATELET SUFFICIENCY NORMAL (NORMAL); TOTAL CELLS COUNTED 100 #CELLS
[2020-06-09 08:00] VITALS: BP 136/61
[2020-06-09 12:00] VITALS: BP 148/73
[2020-06-09 16:00] VITALS: BP 151/69
[2020-06-09 20:00] VITALS: BP 125/69
[2020-06-10] VITALS: BP 133/54; BP 144/61
[2020-06-10 06:38] LABS: MEAN CELL VOLUME 112.1 fl (81.0-99.0); MEAN CORPUSCULAR HGB 34.1 pg (27.0-31.0); MEAN CORPUSCULAR HGB CONC 30.4 g/dl (33.0-37.0); MEAN PLATELET VOLUME 11.3 fl (9.6-12.3); PLATELET COUNT AUTOMATED 226 10*3/uL (130-400); RED BLOOD COUNT 2.14 10*6/uL (4.10-5.10); RED CELL DISTRI WIDTH 15.9 % (0-14.5); WHITE BLOOD COUNT 6.4 10*3/uL (4.8-10.8)
[2020-06-10 06:49] LABS: CREATININE 1.25 mg/dL (0.55-1.02); POTASSIUM 4.7 mmol/L (3.5-5.1)
[2020-06-10 07:18] LABS: PLATELET SUFFICIENCY NORMAL (NORMAL); SCHISTOCYTES FEW; TOTAL CELLS COUNTED 100 #CELLS
[2020-06-10 08:00] VITALS: BP 132/53
[2020-06-10 12:00] VITALS: BP 133/50
[2020-06-10 16:00] VITALS: BP 118/63
[2020-06-10 20:00] VITALS: BP 116/51
[2020-06-11] VITALS: BP 133/54
[2020-06-11 08:00] VITALS: BP 123/58
[2020-06-11] MEDS ORDERED: PREDNISONE10 MG PO (10:32)
[2020-06-11] MEDS ORDERED: ALLOPURINOL100 MG PO (10:37)
== END 2020-06-11 12:55 | disposition home health service (06) | DRG 871 ==
LOC: ED 12:29 → EDHOLD 15:22 → 5E 15:22 → 4E 15:22 → 5E 06-04 10:08
PROVIDERS: Emergency Medicine; Hospitalist; Internal Medicine; Student in an Organized Health Care Education/Training Program; ADMIT Family Medicine; ATTEND Family Medicine
PROC: 0S9G3ZX Drainage of Left Ankle Joint, Percutaneous Approach, Diagnostic (ICD-10-PCS; principal; 2020-06-11)
DX: A41.9 Sepsis, unspecified organism (principal); J18.9 Pneumonia, unspecified organism; N17.0 Acute kidney failure with tubular necrosis; E43 Unspecified severe protein-calorie malnutrition; J96.21 Acute and chronic respiratory failure with hypoxia; J44.1 Chronic obstructive pulmonary disease with (acute) exacerbation; N18.4 Chronic kidney disease, stage 4 (severe); J96.10 Chronic respiratory failure, unspecified whether with hypoxia or hypercapnia; J44.0 Chronic obstructive pulmonary disease with (acute) lower respiratory infection; Z20.828 Contact with and (suspected) exposure to other viral communicable diseases; D53.9 Nutritional anemia, unspecified; M10.072 Idiopathic gout, left ankle and foot; M25.472 Effusion, left ankle; R65.20 Severe sepsis without septic shock; F41.8 Other specified anxiety disorders; E78.5 Hyperlipidemia, unspecified; M10.9 Gout, unspecified; I73.9 Peripheral vascular disease, unspecified; M65.9 Synovitis and tenosynovitis, unspecified; D16.32 Benign neoplasm of short bones of left lower limb; D36.13 Benign neoplasm of peripheral nerves and autonomic nervous system of lower limb, including hip; M65.872 Other synovitis and tenosynovitis, left ankle and foot; M67.472 Ganglion, left ankle and foot; Z96.651 Presence of right artificial knee joint; Z98.51 Tubal ligation status; Z90.49 Acquired absence of other specified parts of digestive tract; Z80.1 Family history of malignant neoplasm of trachea, bronchus and lung; Z79.51 Long term (current) use of inhaled steroids; Z79.1 Long term (current) use of non-steroidal anti-inflammatories (NSAID); Z79.899 Other long term (current) drug therapy

== ENCOUNTER → 2020-07-25 | Outpatient (CLI) | payer MEDICARE ==
[~2020-07-25] MED LIST changes: +ALLOPURINOL100 MG PO; +BONIVA150 MG PO
[2020-07-25 15:12] LABS: BASO % 0.6 % (0.0-1.0); EOS # 0.2 10*3/uL (0.0-0.4); EOS % 2.9 % (1.0-4.0); HEMATOCRIT 35.3 % (37.0-47.0); LYMPH # 1.5 10*3/uL (1.3-4.4); LYMPH % 21.3 % (27.0-41.0); MEAN CELL VOLUME 106.6 fl (81.0-99.0); MEAN CORPUSCULAR HGB 32.3 pg (27.0-31.0); MEAN CORPUSCULAR HGB CONC 30.3 g/dl (33.0-37.0); MEAN PLATELET VOLUME 10.8 fl (9.6-12.3); MONO # 0.9 10*3/uL (0.1-1.0); MONO % 13.3 % (3.0-9.0); NEUT # 4.2 10*3/uL (2.3-7.9); NUCLEATED RED BLOOD CELL 0.4 % (0.0-0.0); PLATELET COUNT AUTOMATED 467 10*3/uL (130-400); RED BLOOD COUNT 3.31 10*6/uL (4.10-5.10); RED CELL DISTRI WIDTH 18.4 % (0-14.5); WHITE BLOOD COUNT 6.9 10*3/uL (4.8-10.8)
== END | disposition home or self-care (01) ==
LOC: LAB 14:24
PROVIDERS: ATTEND Internal Medicine
DX: N18.9 Chronic kidney disease, unspecified (principal); D69.6 Thrombocytopenia, unspecified; D80.1 Nonfamilial hypogammaglobulinemia

== ENCOUNTER → 2020-10-06 | Outpatient (CLI) | payer MEDICARE ==
[2020-10-06 13:53] LABS: MEAN CORPUSCULAR HGB 31.5 pg (27.0-31.0); MEAN CORPUSCULAR HGB CONC 30.5 g/dl (33.0-37.0); MEAN PLATELET VOLUME 10.6 fl (9.6-12.3); NUCLEATED RED BLOOD CELL 0.3 % (0.0-0.0); RED BLOOD COUNT 1.97 10*6/uL (4.10-5.10); RED CELL DISTRI WIDTH 19.1 % (0-14.5); WHITE BLOOD COUNT 13.8 10*3/uL (4.8-10.8)
[2020-10-06 13:58] LABS: HEMATOCRIT 20.3 % (37.0-47.0); PLATELET COUNT AUTOMATED 1147 10*3/uL (130-400)
[2020-10-06 14:13] LABS: BASOPHILS 1 % (0-1); TOTAL CELLS COUNTED 100 #CELLS
[2020-10-06 14:14] LABS: PLATELET SUFFICIENCY HIGH (NORMAL)
[2020-10-06 14:15] LABS: MICROCYTOSIS SLIGHT; OVALOCYTES FEW
[2020-10-06 14:18] LABS: ALBUMIN 3.8 gm/dl (3.1-4.5); CREATININE 2.59 mg/dL (0.55-1.02); POTASSIUM 3.9 mmol/L (3.5-5.1)
[2020-10-06 14:37] LABS: PTH INTACT 26.1 pg/mL (18.5-88.0); VITAMIN D, 25-HYDROXY 68.9 ng/mL (30-100)
[2020-10-06 14:38] LABS: FERRITIN > 1650.0 ng/mL (10.0-291.0)
== END | disposition home or self-care (01) ==
LOC: LAB 13:30
PROVIDERS: ATTEND Internal Medicine Nephrology
DX: N18.4 Chronic kidney disease, stage 4 (severe) (principal); N25.81 Secondary hyperparathyroidism of renal origin; D63.1 Anemia in chronic kidney disease; Z79.899 Other long term (current) drug therapy

== ENCOUNTER → 2020-10-08 | Outpatient (CLI) | payer MEDICARE ==
[2020-10-08 14:09] LABS: BILIRUBIN Negative (Negative); BLOOD Negative (Negative); CLARITY Cloudy (Clear); COLOR Yellow (Yellow); GLUCOSE Negative (Negative); KETONE Negative (Negative); LEUKO ESTERASE 3+ (Negative); NITRITE Negative (Negative); PH 5.5 (4.5-8.0); SPECIFIC GRAVITY 1.015 (1.001-1.030); UROBILINOGEN 0.2 E.U./dl (0.0-1.0)
[2020-10-08 14:33] LABS: WBC 41-50 wbc/hpf (0-5)
[2020-10-08 14:34] LABS: BACTERIA 4+; CALCIUM OXALATE CRYSTALS 3+
== END | disposition home or self-care (01) ==
LOC: LAB 13:48
PROVIDERS: ATTEND Internal Medicine Nephrology
DX: N25.81 Secondary hyperparathyroidism of renal origin (principal); N18.4 Chronic kidney disease, stage 4 (severe); D63.1 Anemia in chronic kidney disease; Z79.899 Other long term (current) drug therapy

== ENCOUNTER → 2020-10-16 | Outpatient (CLI) | payer MEDICARE ==
[2020-10-16 14:43] LABS: BASO # 0.1 10*3/uL (0.0-0.1); BASO % 0.9 % (0.0-1.0); EOS # 0.6 10*3/uL (0.0-0.4); EOS % 5.1 % (1.0-4.0); HEMATOCRIT 33.2 % (37.0-47.0); LYMPH # 1.8 10*3/uL (1.3-4.4); LYMPH % 15.8 % (27.0-41.0); MEAN CELL VOLUME 97.6 fl (81.0-99.0); MEAN CORPUSCULAR HGB 29.7 pg (27.0-31.0); MEAN CORPUSCULAR HGB CONC 30.4 g/dl (33.0-37.0); MEAN PLATELET VOLUME 10.5 fl (9.6-12.3); MONO # 1.3 10*3/uL (0.1-1.0); MONO % 10.8 % (3.0-9.0); NEUT # 7.8 10*3/uL (2.3-7.9); NEUT % 66.5 % (47.0-73.0); PLATELET COUNT AUTOMATED 849 10*3/uL (130-400); WHITE BLOOD COUNT 11.7 10*3/uL (4.8-10.8)
== END | disposition home or self-care (01) ==
LOC: LAB 14:26
PROVIDERS: ATTEND Internal Medicine
DX: N18.9 Chronic kidney disease, unspecified (principal); D64.9 Anemia, unspecified; D47.3 Essential (hemorrhagic) thrombocythemia; D75.81 Myelofibrosis

== ENCOUNTER → 2020-10-23 | Outpatient (CLI) | payer MEDICARE ==
[2020-10-23 15:48] LABS: HEMATOCRIT 32.1 % (37.0-47.0); MEAN CELL VOLUME 97.9 fl (81.0-99.0); MEAN CORPUSCULAR HGB 30.5 pg (27.0-31.0); MEAN CORPUSCULAR HGB CONC 31.2 g/dl (33.0-37.0); MEAN PLATELET VOLUME 10.4 fl (9.6-12.3); RED BLOOD COUNT 3.28 10*6/uL (4.10-5.10); RED CELL DISTRI WIDTH 16.3 % (0-14.5); WHITE BLOOD COUNT 14.6 10*3/uL (4.8-10.8)
[2020-10-23 16:01] LABS: PLATELET COUNT AUTOMATED 1169 10*3/uL (130-400)
[2020-10-23 16:29] LABS: BASOPHILS 1 % (0-1); BURR CELLS FEW; MICROCYTOSIS SLIGHT; OVALOCYTES FEW; PLATELET SUFFICIENCY HIGH (NORMAL); TOTAL CELLS COUNTED 100 #CELLS
== END | disposition home or self-care (01) ==
LOC: LAB 15:31
PROVIDERS: ATTEND Internal Medicine
DX: D75.81 Myelofibrosis (principal); D64.9 Anemia, unspecified; D47.3 Essential (hemorrhagic) thrombocythemia; N18.9 Chronic kidney disease, unspecified

== ENCOUNTER → 2020-10-30 | Outpatient (CLI) | payer MEDICARE ==
[2020-10-30 14:52] LABS: HEMATOCRIT 29.7 % (37.0-47.0); MEAN CELL VOLUME 97.7 fl (81.0-99.0); MEAN CORPUSCULAR HGB 30.3 pg (27.0-31.0); MEAN PLATELET VOLUME 10.3 fl (9.6-12.3); RED BLOOD COUNT 3.04 10*6/uL (4.10-5.10); WHITE BLOOD COUNT 13.3 10*3/uL (4.8-10.8)
[2020-10-30 15:00] LABS: PLATELET COUNT AUTOMATED 1126 10*3/uL (130-400)
[2020-10-30 15:11] LABS: BASOPHILS 1 % (0-1); PLATELET SUFFICIENCY HIGH (NORMAL); TOTAL CELLS COUNTED 100 #CELLS
[2020-10-30 15:12] LABS: BURR CELLS FEW
== END | disposition home or self-care (01) ==
LOC: LAB 14:34
PROVIDERS: ATTEND Internal Medicine
DX: D78 Intraoperative and postprocedural complications of the spleen (principal); D64.9 Anemia, unspecified; D47.3 Essential (hemorrhagic) thrombocythemia; N18.9 Chronic kidney disease, unspecified

== ENCOUNTER → 2020-11-07 | Outpatient (CLI) | payer MEDICARE ==
[2020-11-07 14:30] LABS: HEMATOCRIT 26.3 % (37.0-47.0); MEAN CELL VOLUME 96.3 fl (81.0-99.0); MEAN CORPUSCULAR HGB 29.7 pg (27.0-31.0); MEAN CORPUSCULAR HGB CONC 30.8 g/dl (33.0-37.0); MEAN PLATELET VOLUME 10.1 fl (9.6-12.3); RED BLOOD COUNT 2.73 10*6/uL (4.10-5.10); RED CELL DISTRI WIDTH 15.9 % (0-14.5); WHITE BLOOD COUNT 12.8 10*3/uL (4.8-10.8)
[2020-11-07 14:44] LABS: PLATELET COUNT AUTOMATED 1161 10*3/uL (130-400)
[2020-11-07 14:47] LABS: TOTAL CELLS COUNTED 100 #CELLS
[2020-11-07 14:48] LABS: BURR CELLS FEW; PLATELET SUFFICIENCY HIGH (NORMAL)
== END | disposition home or self-care (01) ==
LOC: LAB 00:38
PROVIDERS: ATTEND Internal Medicine
DX: N18.9 Chronic kidney disease, unspecified (principal); D47.3 Essential (hemorrhagic) thrombocythemia; D64.9 Anemia, unspecified; D75.81 Myelofibrosis

== ENCOUNTER → 2020-11-21 | Outpatient (CLI) | payer MEDICARE ==
[2020-11-21 14:31] LABS: BASO # 0.1 10*3/uL (0.0-0.1); BASO % 0.8 % (0.0-1.0); EOS # 0.4 10*3/uL (0.0-0.4); EOS % 4.6 % (1.0-4.0); HEMATOCRIT 37.3 % (37.0-47.0); LYMPH % 26.4 % (27.0-41.0); MEAN CELL VOLUME 91.9 fl (81.0-99.0); MEAN CORPUSCULAR HGB 28.1 pg (27.0-31.0); MEAN CORPUSCULAR HGB CONC 30.6 g/dl (33.0-37.0); MEAN PLATELET VOLUME 10.7 fl (9.6-12.3); MONO # 0.8 10*3/uL (0.1-1.0); MONO % 9.9 % (3.0-9.0); NEUT # 4.4 10*3/uL (2.3-7.9); NEUT % 58.2 % (47.0-73.0); PLATELET COUNT AUTOMATED 355 10*3/uL (130-400); RED BLOOD COUNT 4.06 10*6/uL (4.10-5.10); RED CELL DISTRI WIDTH 16.5 % (0-14.5); WHITE BLOOD COUNT 7.5 10*3/uL (4.8-10.8)
== END | disposition home or self-care (01) ==
LOC: LAB 14:07
PROVIDERS: ATTEND Internal Medicine
DX: N18.9 Chronic kidney disease, unspecified (principal); D75.81 Myelofibrosis; D64.9 Anemia, unspecified; D47.3 Essential (hemorrhagic) thrombocythemia

== ENCOUNTER 2020-12-07 14:00 | Emergency (ER) | payer MEDICARE ==
[~2020-12-07] VITALS: Wt 59.4 kg
[2020-12-07 14:08] VITALS: BP 145/69
== END 2020-12-07 15:45 | disposition home or self-care (01) ==
LOC: ED 14:00
DX: S93.402A Sprain of unspecified ligament of left ankle, initial encounter (principal); S82.832A Other fracture of upper and lower end of left fibula, initial encounter for closed fracture; N18.4 Chronic kidney disease, stage 4 (severe); J44.9 Chronic obstructive pulmonary disease, unspecified; I12.9 Hypertensive chronic kidney disease with stage 1 through stage 4 chronic kidney disease, or unspecified chronic kidney disease; E78.5 Hyperlipidemia, unspecified; Z98.890 Other specified postprocedural states; Z96.651 Presence of right artificial knee joint; Z79.899 Other long term (current) drug therapy; Z79.82 Long term (current) use of aspirin; Z98.51 Tubal ligation status; Z90.49 Acquired absence of other specified parts of digestive tract; X58.XXXA Exposure to other specified factors, initial encounter; Y93.89 Activity, other specified; Y92.89 Other specified places as the place of occurrence of the external cause; Y99.8 Other external cause status

== ENCOUNTER 2020-12-21 14:21 | Inpatient (IN) | payer MEDICARE ==
[~2020-12-21] VITALS: Ht 152.4 cm; Wt 59.0 kg
[2020-12-21 14:38] VITALS: BP 100/51
[2020-12-21 14:50] LABS: BASO % 0.2 % (0.0-1.0); EOS # 0.1 10*3/uL (0.0-0.4); EOS % 0.4 % (1.0-4.0); HEMATOCRIT 23.7 % (37.0-47.0); LYMPH # 1.3 10*3/uL (1.3-4.4); LYMPH % 10.7 % (27.0-41.0); MEAN CELL VOLUME 86.5 fl (81.0-99.0); MEAN CORPUSCULAR HGB 27.7 pg (27.0-31.0); MEAN CORPUSCULAR HGB CONC 32.1 g/dl (33.0-37.0); MEAN PLATELET VOLUME 10.6 fl (9.6-12.3); MONO # 0.9 10*3/uL (0.1-1.0); NEUT # 9.9 10*3/uL (2.3-7.9); NEUT % 80.6 % (47.0-73.0); PLATELET COUNT AUTOMATED 278 10*3/uL (130-400); RED BLOOD COUNT 2.74 10*6/uL (4.10-5.10); RED CELL DISTRI WIDTH 16.4 % (0-14.5); WHITE BLOOD COUNT 12.3 10*3/uL (4.8-10.8)
[2020-12-21 15:05] LABS: INTERNATIONAL NORM RATIO 1.1 (2.0-3.5)
[2020-12-21 15:06] LABS: ALBUMIN 2.8 gm/dl (3.1-4.5); ALKALINE PHOSPHATASE 86 U/L (45-117); BUN 56 mg/dl (7-24); CHLORIDE 102 mmol/L (98-107); CREATININE 3.02 mg/dL (0.55-1.02); LIPASE 115 U/L (73-393); POTASSIUM 3.6 mmol/L (3.5-5.1); SGOT/AST 18 IU/L (3-35); SGPT/ALT 19 U/L (12-78); SODIUM 138 mmol/L (136-145); TOTAL PROTEIN 7.1 gm/dL (6.4-8.2)
[2020-12-21 15:23] LABS: TROPONIN I < 0.015 ng/ml (<0.045)
[2020-12-21 17:10] VITALS: BP 118/56
[2020-12-21 19:57] VITALS: BP 97/32
[2020-12-21 20:01] VITALS: BP 107/39
[2020-12-21 20:04] VITALS: BP 107/39
[2020-12-21] MEDS ORDERED: [UNRECOGNIZED DRUG - OTHER] PO (22:10)
[2020-12-21 23:02] VITALS: BP 102/51
[2020-12-22] VITALS (17 sets, daily range): BP systolic 87–125; BP diastolic 49–75
[2020-12-22 06:22] LABS: HEMATOCRIT 21.3 % (37.0-47.0); MEAN CELL VOLUME 88.4 fl (81.0-99.0); MEAN CORPUSCULAR HGB 28.2 pg (27.0-31.0); MEAN CORPUSCULAR HGB CONC 31.9 g/dl (33.0-37.0); MEAN PLATELET VOLUME 10.5 fl (9.6-12.3); PLATELET COUNT AUTOMATED 234 10*3/uL (130-400); RED BLOOD COUNT 2.41 10*6/uL (4.10-5.10); RED CELL DISTRI WIDTH 16.4 % (0-14.5); WHITE BLOOD COUNT 8.2 10*3/uL (4.8-10.8)
[2020-12-22 06:44] LABS: CREATININE 2.68 mg/dL (0.55-1.02); POTASSIUM 4.1 mmol/L (3.5-5.1)
[2020-12-22 07:38] LABS: BURR CELLS FEW; OVALOCYTES FEW; PLATELET SUFFICIENCY NORMAL (NORMAL); SCHISTOCYTES FEW; TOTAL CELLS COUNTED 100 #CELLS
[2020-12-22 07:59] LABS: VITAMIN D, 25-HYDROXY 61.9 ng/mL (30-100)
[2020-12-22 15:53] LABS: HEMATOCRIT 26.7 % (37.0-47.0); MEAN CELL VOLUME 86.7 fl (81.0-99.0); MEAN CORPUSCULAR HGB 28.2 pg (27.0-31.0); MEAN CORPUSCULAR HGB CONC 32.6 g/dl (33.0-37.0); MEAN PLATELET VOLUME 11.4 fl (9.6-12.3); PLATELET COUNT AUTOMATED 249 10*3/uL (130-400); RED BLOOD COUNT 3.08 10*6/uL (4.10-5.10); RED CELL DISTRI WIDTH 15.5 % (0-14.5)
[2020-12-22 16:09] LABS: BILIRUBIN Negative (Negative); BLOOD Negative (Negative); CLARITY Clear (Clear); COLOR Yellow (Yellow); GLUCOSE Negative (Negative); KETONE Trace (Negative); LEUKO ESTERASE Negative (Negative); NITRITE Negative (Negative); SPECIFIC GRAVITY 1.015 (1.001-1.030); UROBILINOGEN 0.2 E.U./dl (0.0-1.0)
[2020-12-22 16:37] LABS: PLATELET SUFFICIENCY NORMAL (NORMAL); TOTAL CELLS COUNTED 100 #CELLS
[2020-12-22 16:38] LABS: BURR CELLS FEW
[2020-12-22 16:40] LABS: EPITHELIAL CELLS 21-30
[2020-12-23 00:02] VITALS: BP 130/69
[2020-12-23 06:19] LABS: HEMATOCRIT 24.5 % (37.0-47.0); MEAN CELL VOLUME 86.9 fl (81.0-99.0); MEAN CORPUSCULAR HGB 28.4 pg (27.0-31.0); MEAN CORPUSCULAR HGB CONC 32.7 g/dl (33.0-37.0); MEAN PLATELET VOLUME 11.3 fl (9.6-12.3); PLATELET COUNT AUTOMATED 242 10*3/uL (130-400); RED BLOOD COUNT 2.82 10*6/uL (4.10-5.10); RED CELL DISTRI WIDTH 15.9 % (0-14.5); WHITE BLOOD COUNT 13.7 10*3/uL (4.8-10.8)
[2020-12-23 06:48] LABS: CREATININE 2.46 mg/dL (0.55-1.02); POTASSIUM 3.6 mmol/L (3.5-5.1)
[2020-12-23 07:06] LABS: BASOPHILS 1 % (0-1); PLATELET SUFFICIENCY NORMAL (NORMAL); TOTAL CELLS COUNTED 100 #CELLS
[2020-12-23 08:00] VITALS: BP 128/73
[2020-12-23 12:00] VITALS: BP 132/96
[2020-12-23 16:00] VITALS: BP 142/92
[2020-12-23 20:00] VITALS: BP 105/69
[2020-12-24] VITALS: BP 108/72
[2020-12-24 06:30] LABS: HEMATOCRIT 23.7 % (37.0-47.0); MEAN CELL VOLUME 86.8 fl (81.0-99.0); MEAN CORPUSCULAR HGB 28.2 pg (27.0-31.0); MEAN CORPUSCULAR HGB CONC 32.5 g/dl (33.0-37.0); MEAN PLATELET VOLUME 10.7 fl (9.6-12.3); PLATELET COUNT AUTOMATED 219 10*3/uL (130-400); RED BLOOD COUNT 2.73 10*6/uL (4.10-5.10); RED CELL DISTRI WIDTH 16.3 % (0-14.5); WHITE BLOOD COUNT 12.3 10*3/uL (4.8-10.8)
[2020-12-24 06:42] LABS: CREATININE 2.02 mg/dL (0.55-1.02); POTASSIUM 3.5 mmol/L (3.5-5.1)
[2020-12-24 07:02] LABS: OVALOCYTES MODERATE; PLATELET SUFFICIENCY NORMAL (NORMAL); ROULEAUX MODERATE; TOTAL CELLS COUNTED 100 #CELLS
[2020-12-24 08:00] VITALS: BP 146/60
[2020-12-24 12:00] VITALS: BP 122/56
[2020-12-24 16:00] VITALS: BP 114/62
[2020-12-24 20:00] VITALS: BP 116/64
[2020-12-25] VITALS: BP 131/72
[2020-12-25 06:48] LABS: HEMATOCRIT 24.8 % (37.0-47.0); MEAN CELL VOLUME 88.6 fl (81.0-99.0); MEAN CORPUSCULAR HGB 28.6 pg (27.0-31.0); MEAN CORPUSCULAR HGB CONC 32.3 g/dl (33.0-37.0); MEAN PLATELET VOLUME 11.1 fl (9.6-12.3); PLATELET COUNT AUTOMATED 228 10*3/uL (130-400); RED CELL DISTRI WIDTH 16.4 % (0-14.5); WHITE BLOOD COUNT 13.9 10*3/uL (4.8-10.8)
[2020-12-25 07:00] LABS: CREATININE 1.77 mg/dL (0.55-1.02); POTASSIUM 3.3 mmol/L (3.5-5.1)
[2020-12-25 07:35] LABS: PLATELET SUFFICIENCY NORMAL (NORMAL); POLYCHROMASIA SLIGHT; TOTAL CELLS COUNTED 100 #CELLS
[2020-12-25 08:00] VITALS: BP 129/73
[2020-12-25 12:00] VITALS: BP 101/45
[2020-12-25 16:00] VITALS: BP 113/51
[2020-12-25 20:00] VITALS: BP 100/57
[2020-12-26] VITALS: BP 113/50
[2020-12-26 06:53] LABS: HEMATOCRIT 25.9 % (37.0-47.0); MEAN CELL VOLUME 88.7 fl (81.0-99.0); MEAN CORPUSCULAR HGB 28.1 pg (27.0-31.0); MEAN CORPUSCULAR HGB CONC 31.7 g/dl (33.0-37.0); MEAN PLATELET VOLUME 11.2 fl (9.6-12.3); PLATELET COUNT AUTOMATED 242 10*3/uL (130-400); RED BLOOD COUNT 2.92 10*6/uL (4.10-5.10); RED CELL DISTRI WIDTH 16.6 % (0-14.5); WHITE BLOOD COUNT 14.4 10*3/uL (4.8-10.8)
[2020-12-26 07:03] LABS: POTASSIUM 3.9 mmol/L (3.5-5.1)
[2020-12-26 07:04] LABS: CREATININE 1.8 mg/dL (0.55-1.02)
[2020-12-26 07:22] LABS: OVALOCYTES FEW; PLATELET SUFFICIENCY NORMAL (NORMAL); ROULEAUX MODERATE; TOTAL CELLS COUNTED 100 #CELLS
[2020-12-26 08:00] VITALS: BP 120/58
[2020-12-26 12:00] VITALS: BP 133/70
[2020-12-26 16:00] VITALS: BP 135/75
[2020-12-26 20:00] VITALS: BP 131/55
[2020-12-27] VITALS: BP 123/56
[2020-12-27 06:32] LABS: HEMATOCRIT 25.2 % (37.0-47.0); MEAN CORPUSCULAR HGB 28.3 pg (27.0-31.0); MEAN CORPUSCULAR HGB CONC 31.7 g/dl (33.0-37.0); MEAN PLATELET VOLUME 11.1 fl (9.6-12.3); PLATELET COUNT AUTOMATED 252 10*3/uL (130-400); RED BLOOD COUNT 2.83 10*6/uL (4.10-5.10); RED CELL DISTRI WIDTH 16.8 % (0-14.5); WHITE BLOOD COUNT 15.5 10*3/uL (4.8-10.8)
[2020-12-27 06:44] LABS: CREATININE 1.6 mg/dL (0.55-1.02)
[2020-12-27 07:26] LABS: BURR CELLS FEW; OVALOCYTES FEW; PLATELET SUFFICIENCY NORMAL (NORMAL); ROULEAUX SLIGHT; SCHISTOCYTES FEW; TOTAL CELLS COUNTED 100 #CELLS
[2020-12-27] MEDS ORDERED: PREDNISONE10 MG PO (11:27)
[2020-12-27] MEDS ORDERED: ALLOPURINOL100 MG PO (11:27)
[2020-12-27] MEDS ORDERED: DOXYCYCLINE100 M3 PO (11:27)
[2020-12-27 12:00] VITALS: BP 128/60
== END 2020-12-27 17:26 | disposition home health service (06) | DRG 871 ==
LOC: ED 14:21 → 5E 18:12 → EDHOLD 18:12 → 5E 19:55
PROVIDERS: Emergency Medicine; Family Medicine; Internal Medicine; Student in an Organized Health Care Education/Training Program; ADMIT Internal Medicine; ATTEND Internal Medicine
DX: A41.9 Sepsis, unspecified organism (principal); J18.9 Pneumonia, unspecified organism; N17.0 Acute kidney failure with tubular necrosis; E43 Unspecified severe protein-calorie malnutrition; J96.21 Acute and chronic respiratory failure with hypoxia; N18.4 Chronic kidney disease, stage 4 (severe); J44.1 Chronic obstructive pulmonary disease with (acute) exacerbation; M10.9 Gout, unspecified; R65.20 Severe sepsis without septic shock; F41.8 Other specified anxiety disorders; E78.5 Hyperlipidemia, unspecified; Z96.651 Presence of right artificial knee joint; E86.0 Dehydration; I12.9 Hypertensive chronic kidney disease with stage 1 through stage 4 chronic kidney disease, or unspecified chronic kidney disease; R79.82 Elevated C-reactive protein (CRP); R91.8 Other nonspecific abnormal finding of lung field; R79.89 Other specified abnormal findings of blood chemistry; Z90.49 Acquired absence of other specified parts of digestive tract; Z98.51 Tubal ligation status; Z98.41 Cataract extraction status, right eye; Z87.891 Personal history of nicotine dependence; Z80.1 Family history of malignant neoplasm of trachea, bronchus and lung; Z84.89 Family history of other specified conditions; Z79.899 Other long term (current) drug therapy; Z79.82 Long term (current) use of aspirin; Z68.25 Body mass index [BMI] 25.0-25.9, adult

== ENCOUNTER 2021-01-24 11:36 | Inpatient (IN) | payer MEDICARE ==
[~2021-01-24] VITALS: Ht 152.4 cm; Wt 60.6 kg
[2021-01-24] VITALS (17 sets, daily range): BP systolic 102–141; BP diastolic 46–70
[~2021-01-24 11:36] MED LIST changes: +[UNRECOGNIZED DRUG - OTHER] PO
[2021-01-24 11:53] LABS: MEAN CELL VOLUME 90.9 fl (81.0-99.0); MEAN CORPUSCULAR HGB 28.3 pg (27.0-31.0); MEAN CORPUSCULAR HGB CONC 31.1 g/dl (33.0-37.0); NUCLEATED RED BLOOD CELL 0.4 % (0.0-0.0); PLATELET COUNT AUTOMATED 229 10*3/uL (130-400); RED BLOOD COUNT 1.98 10*6/uL (4.10-5.10); RED CELL DISTRI WIDTH 17.1 % (0-14.5); WHITE BLOOD COUNT 8.3 10*3/uL (4.8-10.8)
[2021-01-24 12:08] LABS: ALBUMIN 3.3 gm/dl (3.1-4.5); CREATININE 2.52 mg/dL (0.55-1.02); POTASSIUM 3.7 mmol/L (3.5-5.1); TOTAL PROTEIN 6.3 gm/dL (6.4-8.2)
[2021-01-24 12:09] LABS: TOTAL CELLS COUNTED 100 #CELLS; TROPONIN I 0.018 ng/ml (<0.045)
[2021-01-24 12:10] LABS: OVALOCYTES FEW; PLATELET SUFFICIENCY NORMAL (NORMAL); SCHISTOCYTES FEW
[2021-01-24 13:10] LABS: ACT PARTIAL THROMBO TIME < 20.0 SECONDS (20.0-32.1)
[2021-01-24 17:40] LABS: HEMATOCRIT 21.3 % (37.0-47.0); MEAN CELL VOLUME 90.3 fl (81.0-99.0); MEAN CORPUSCULAR HGB 28.8 pg (27.0-31.0); MEAN CORPUSCULAR HGB CONC 31.9 g/dl (33.0-37.0); MEAN PLATELET VOLUME 11.2 fl (9.6-12.3); NUCLEATED RED BLOOD CELL 0.4 % (0.0-0.0); PLATELET COUNT AUTOMATED 178 10*3/uL (130-400); RED BLOOD COUNT 2.36 10*6/uL (4.10-5.10); RED CELL DISTRI WIDTH 15.6 % (0-14.5); WHITE BLOOD COUNT 5.1 10*3/uL (4.8-10.8)
[2021-01-24 18:11] LABS: PLATELET SUFFICIENCY NORMAL (NORMAL); TOTAL CELLS COUNTED 100 #CELLS
[2021-01-24 18:12] LABS: STOMATOCYTE FEW
[2021-01-24 18:13] LABS: MICROCYTOSIS SLIGHT; OVALOCYTES FEW
[2021-01-25 00:27] VITALS: BP 124/63
[2021-01-25 06:26] LABS: BASO % 0.2 % (0.0-1.0); HEMATOCRIT 26.2 % (37.0-47.0); LYMPH # 0.3 10*3/uL (1.3-4.4); LYMPH % 5.9 % (27.0-41.0); MEAN CELL VOLUME 87.6 fl (81.0-99.0); MEAN CORPUSCULAR HGB 30.1 pg (27.0-31.0); MEAN CORPUSCULAR HGB CONC 34.4 g/dl (33.0-37.0); MEAN PLATELET VOLUME 11.9 fl (9.6-12.3); MONO # 0.3 10*3/uL (0.1-1.0); MONO % 4.7 % (3.0-9.0); NEUT # 4.8 10*3/uL (2.3-7.9); NEUT % 86.3 % (47.0-73.0); NUCLEATED RED BLOOD CELL 0.7 % (0.0-0.0); PLATELET COUNT AUTOMATED 164 10*3/uL (130-400); RED BLOOD COUNT 2.99 10*6/uL (4.10-5.10); RED CELL DISTRI WIDTH 15.4 % (0-14.5); WHITE BLOOD COUNT 5.6 10*3/uL (4.8-10.8)
[2021-01-25 06:54] LABS: ALBUMIN 2.8 gm/dl (3.1-4.5); CREATININE 2.1 mg/dL (0.55-1.02); POTASSIUM 4.1 mmol/L (3.5-5.1); TOTAL PROTEIN 5.6 gm/dL (6.4-8.2)
[2021-01-25 08:00] VITALS: BP 154/72
[2021-01-25 12:00] VITALS: BP 144/66
[2021-01-25 16:00] VITALS: BP 142/74
[2021-01-25 20:00] VITALS: BP 131/76
[2021-01-25 23:57] VITALS: BP 127/68
[2021-01-26] VITALS (7 sets, daily range): BP systolic 98–150; BP diastolic 47–88
[2021-01-26 06:19] LABS: MEAN CELL VOLUME 90.3 fl (81.0-99.0); MEAN CORPUSCULAR HGB 29.4 pg (27.0-31.0); MEAN CORPUSCULAR HGB CONC 32.6 g/dl (33.0-37.0); MEAN PLATELET VOLUME 11.1 fl (9.6-12.3); NUCLEATED RED BLOOD CELL 0.4 % (0.0-0.0); PLATELET COUNT AUTOMATED 182 10*3/uL (130-400); RED BLOOD COUNT 2.99 10*6/uL (4.10-5.10); RED CELL DISTRI WIDTH 16.1 % (0-14.5)
[2021-01-26 06:28] LABS: ALBUMIN 2.9 gm/dl (3.1-4.5); CREATININE 2.11 mg/dL (0.55-1.02); TOTAL PROTEIN 5.7 gm/dL (6.4-8.2)
[2021-01-26 07:34] LABS: BURR CELLS MODERATE; PLATELET SUFFICIENCY NORMAL (NORMAL); SCHISTOCYTES FEW; TOTAL CELLS COUNTED 100 #CELLS
[2021-01-26] MEDS ORDERED: Carafate1 GM PO (14:11)
[2021-01-26] MEDS ORDERED: AUGMENTIN 500500 M1 PO (14:11)
[2021-01-26] MEDS ORDERED: PANTOPRAZOLE SO40 MG PO (14:11)
== END 2021-01-26 18:14 | DRG 871 ==
LOC: ED 11:36 → EDHOLD 15:33 → 4E 15:33
PROVIDERS: Emergency Medicine; Internal Medicine; Physician Assistant; ADMIT Internal Medicine; ATTEND Internal Medicine
PROC: 30233N1 Transfusion of Nonautologous Red Blood Cells into Peripheral Vein, Percutaneous Approach (ICD-10-PCS; 2021-01-24)
PROC: 0DB78ZX Excision of Stomach, Pylorus, Via Natural or Artificial Opening Endoscopic, Diagnostic (ICD-10-PCS; principal; 2021-01-26)
DX: A41.9 Sepsis, unspecified organism (principal); J18.9 Pneumonia, unspecified organism; N17.0 Acute kidney failure with tubular necrosis; E43 Unspecified severe protein-calorie malnutrition; K25.0 Acute gastric ulcer with hemorrhage; J96.21 Acute and chronic respiratory failure with hypoxia; K29.71 Gastritis, unspecified, with bleeding; K29.81 Duodenitis with bleeding; J44.1 Chronic obstructive pulmonary disease with (acute) exacerbation; N18.4 Chronic kidney disease, stage 4 (severe); J44.0 Chronic obstructive pulmonary disease with (acute) lower respiratory infection; R65.20 Severe sepsis without septic shock; D64.9 Anemia, unspecified; Z96.651 Presence of right artificial knee joint; I12.9 Hypertensive chronic kidney disease with stage 1 through stage 4 chronic kidney disease, or unspecified chronic kidney disease; E86.1 Hypovolemia; M25.552 Pain in left hip; M25.562 Pain in left knee; Z20.822 Contact with and (suspected) exposure to COVID-19; F41.8 Other specified anxiety disorders; E78.5 Hyperlipidemia, unspecified; Z87.891 Personal history of nicotine dependence; Z90.49 Acquired absence of other specified parts of digestive tract; Z98.51 Tubal ligation status; Z98.42 Cataract extraction status, left eye; Z80.1 Family history of malignant neoplasm of trachea, bronchus and lung; Z84.89 Family history of other specified conditions; Z79.899 Other long term (current) drug therapy; Z79.82 Long term (current) use of aspirin; Z68.26 Body mass index [BMI] 26.0-26.9, adult

== ENCOUNTER 2021-01-30 11:57 | Inpatient (IN) | payer MEDICARE ==
[~2021-01-30] VITALS: Ht 152 cm; Wt 60.3 kg
[~2021-01-30 11:57] MED LIST changes: +AUGMENTIN 500500 M1 PO; +Carafate1 GM PO; +PANTOPRAZOLE SO40 MG PO
[2021-01-30 12:01] VITALS: BP 122/62
[2021-01-30 12:33] LABS: HEMATOCRIT 30.4 % (37.0-47.0); MEAN CELL VOLUME 94.1 fl (81.0-99.0); MEAN CORPUSCULAR HGB 29.7 pg (27.0-31.0); MEAN CORPUSCULAR HGB CONC 31.6 g/dl (33.0-37.0); NUCLEATED RED BLOOD CELL 0.3 % (0.0-0.0); PLATELET COUNT AUTOMATED 163 10*3/uL (130-400); RED BLOOD COUNT 3.23 10*6/uL (4.10-5.10); RED CELL DISTRI WIDTH 16.9 % (0-14.5)
[2021-01-30 12:50] LABS: ALBUMIN 2.6 gm/dl (3.1-4.5); CREATININE 1.66 mg/dL (0.55-1.02); POTASSIUM 4.5 mmol/L (3.5-5.1); TOTAL PROTEIN 5.9 gm/dL (6.4-8.2)
[2021-01-30 12:51] LABS: BURR CELLS FEW; OVALOCYTES FEW; PLATELET SUFFICIENCY NORMAL (NORMAL); TOTAL CELLS COUNTED 100 #CELLS; TROPONIN I 0.015 ng/ml (<0.045)
[2021-01-30 13:00] VITALS: BP 127/61
[2021-01-30 13:30] VITALS: BP 110/62
[2021-01-30 14:00] VITALS: BP 103/58
[2021-01-30 16:24] VITALS: BP 113/52
[2021-01-30] MEDS ORDERED: VISTARIL25 MG PO (19:28)
[2021-01-30] MEDS ORDERED: MELATONIN5 M1 PO (19:29)
[2021-01-30 20:00] VITALS: BP 121/66
[2021-01-31] VITALS: BP 116/73
[2021-01-31 06:14] LABS: HEMATOCRIT 26.3 % (37.0-47.0); MEAN CELL VOLUME 93.9 fl (81.0-99.0); MEAN CORPUSCULAR HGB 29.3 pg (27.0-31.0); MEAN CORPUSCULAR HGB CONC 31.2 g/dl (33.0-37.0); MEAN PLATELET VOLUME 11.8 fl (9.6-12.3); NUCLEATED RED BLOOD CELL 0.2 % (0.0-0.0); PLATELET COUNT AUTOMATED 148 10*3/uL (130-400); RED CELL DISTRI WIDTH 17.2 % (0-14.5); WHITE BLOOD COUNT 8.9 10*3/uL (4.8-10.8)
[2021-01-31 06:41] LABS: ALBUMIN 2.5 gm/dl (3.1-4.5); CREATININE 1.67 mg/dL (0.55-1.02); POTASSIUM 4.1 mmol/L (3.5-5.1); TOTAL PROTEIN 5.7 gm/dL (6.4-8.2)
[2021-01-31 06:55] LABS: PLATELET SUFFICIENCY NORMAL (NORMAL); TOTAL CELLS COUNTED 100 #CELLS
[2021-01-31 06:56] LABS: BURR CELLS FEW; SCHISTOCYTES FEW
[2021-01-31 08:00] VITALS: BP 127/63
[2021-01-31 09:43] LABS: ACT PARTIAL THROMBO TIME 21.8 SECONDS (20.0-32.1)
[2021-01-31 12:00] VITALS: BP 105/77
[2021-01-31 16:00] VITALS: BP 123/66
[2021-01-31 20:00] VITALS: BP 137/64
[2021-02-01] VITALS: BP 121/67
[2021-02-01 06:15] LABS: HEMATOCRIT 23.6 % (37.0-47.0); MEAN CORPUSCULAR HGB 29.5 pg (27.0-31.0); MEAN CORPUSCULAR HGB CONC 31.4 g/dl (33.0-37.0); MEAN PLATELET VOLUME 11.4 fl (9.6-12.3); NUCLEATED RED BLOOD CELL 0.2 % (0.0-0.0); PLATELET COUNT AUTOMATED 161 10*3/uL (130-400); RED BLOOD COUNT 2.51 10*6/uL (4.10-5.10); RED CELL DISTRI WIDTH 17.2 % (0-14.5); WHITE BLOOD COUNT 10.2 10*3/uL (4.8-10.8)
[2021-02-01 06:25] LABS: POTASSIUM 3.9 mmol/L (3.5-5.1)
[2021-02-01 06:26] LABS: CREATININE 1.64 mg/dL (0.55-1.02)
[2021-02-01 06:50] LABS: TOTAL CELLS COUNTED 100 #CELLS
[2021-02-01 06:51] LABS: BURR CELLS FEW; OVALOCYTES FEW; PLATELET SUFFICIENCY NORMAL (NORMAL); SCHISTOCYTES FEW
[2021-02-01 08:00] VITALS: BP 137/55
[2021-02-01 09:40] VITALS: BP 136/68
[2021-02-01 12:00] VITALS: BP 146/68
[2021-02-01 12:16] LABS: ABG BASE EXCESS 0.3 mmol/L (-2.0-2.0); ARTERIAL BLOOD GAS PH 7.406 (7.35-7.45); ARTERIAL BLOOD GAS PO2 62.8 (80-90)
[2021-02-01 16:00] VITALS: BP 156/66
[2021-02-01 20:00] VITALS: BP 124/74
[2021-02-02] VITALS (9 sets, daily range): BP systolic 109–142; BP diastolic 60–68
[2021-02-02 06:13] LABS: HEMATOCRIT 22.4 % (37.0-47.0); MEAN CELL VOLUME 94.5 fl (81.0-99.0); MEAN CORPUSCULAR HGB 29.5 pg (27.0-31.0); MEAN CORPUSCULAR HGB CONC 31.3 g/dl (33.0-37.0); MEAN PLATELET VOLUME 11.7 fl (9.6-12.3); PLATELET COUNT AUTOMATED 161 10*3/uL (130-400); RED BLOOD COUNT 2.37 10*6/uL (4.10-5.10); RED CELL DISTRI WIDTH 17.2 % (0-14.5); WHITE BLOOD COUNT 7.5 10*3/uL (4.8-10.8)
[2021-02-02 06:28] LABS: CREATININE 1.69 mg/dL (0.55-1.02); POTASSIUM 3.7 mmol/L (3.5-5.1)
[2021-02-02 07:13] LABS: OVALOCYTES FEW; SCHISTOCYTES FEW; TOTAL CELLS COUNTED 100 #CELLS
[2021-02-02 07:14] LABS: PLATELET SUFFICIENCY NORMAL (NORMAL)
[2021-02-02 07:42] LABS: BILIRUBIN Negative (Negative); BLOOD Negative (Negative); CLARITY Clear (Clear); COLOR Yellow (Yellow); GLUCOSE Negative (Negative); KETONE Trace (Negative); LEUKO ESTERASE Negative (Negative); NITRITE Negative (Negative); SPECIFIC GRAVITY 1.015 (1.001-1.030); UROBILINOGEN 0.2 E.U./dl (0.0-1.0)
[2021-02-02 09:46] LABS: BACTERIA 1+; WBC 0-2 wbc/hpf (0-5)
[2021-02-03] VITALS: BP 132/71
[2021-02-03 05:47] LABS: CREATININE 1.55 mg/dL (0.55-1.02); POTASSIUM 3.5 mmol/L (3.5-5.1)
[2021-02-03 05:51] LABS: MEAN CELL VOLUME 96.4 fl (81.0-99.0); MEAN CORPUSCULAR HGB 29.3 pg (27.0-31.0); MEAN CORPUSCULAR HGB CONC 30.4 g/dl (33.0-37.0); MEAN PLATELET VOLUME 11.8 fl (9.6-12.3); NUCLEATED RED BLOOD CELL 0.2 % (0.0-0.0); PLATELET COUNT AUTOMATED 176 10*3/uL (130-400); RED BLOOD COUNT 2.49 10*6/uL (4.10-5.10); RED CELL DISTRI WIDTH 16.7 % (0-14.5); WHITE BLOOD COUNT 9.5 10*3/uL (4.8-10.8)
[2021-02-03 06:29] LABS: ACANTHOCYTES FEW; PLATELET SUFFICIENCY NORMAL (NORMAL); SCHISTOCYTES FEW; TOTAL CELLS COUNTED 100 #CELLS
[2021-02-03 08:00] VITALS: BP 147/76
[2021-02-03 11:07] LABS: ACID FAST SPEC PROCESSING Concentration (.)
[2021-02-03 12:00] VITALS: BP 150/65
[2021-02-03 16:00] VITALS: BP 142/62
[2021-02-03 20:00] VITALS: BP 157/66
[2021-02-04] VITALS: BP 128/55
[2021-02-04 04:39] LABS: HEMATOCRIT 23.7 % (37.0-47.0); MEAN CELL VOLUME 94.4 fl (81.0-99.0); MEAN CORPUSCULAR HGB 29.5 pg (27.0-31.0); MEAN CORPUSCULAR HGB CONC 31.2 g/dl (33.0-37.0); MEAN PLATELET VOLUME 11.8 fl (9.6-12.3); PLATELET COUNT AUTOMATED 154 10*3/uL (130-400); RED BLOOD COUNT 2.51 10*6/uL (4.10-5.10); RED CELL DISTRI WIDTH 16.5 % (0-14.5); WHITE BLOOD COUNT 10.8 10*3/uL (4.8-10.8)
[2021-02-04 04:55] LABS: CREATININE 1.38 mg/dL (0.55-1.02); POTASSIUM 3.7 mmol/L (3.5-5.1)
[2021-02-04 05:16] LABS: ACANTHOCYTES FEW; PLATELET SUFFICIENCY NORMAL (NORMAL); TOTAL CELLS COUNTED 100 #CELLS
[2021-02-04 05:17] LABS: OVALOCYTES FEW
[2021-02-04 08:00] VITALS: BP 113/57
[2021-02-04 12:00] VITALS: BP 146/77
[2021-02-04 16:00] VITALS: BP 137/77
[2021-02-04 20:00] VITALS: BP 149/74
[2021-02-05] VITALS: BP 142/71
[2021-02-05 08:00] VITALS: BP 128/62
[2021-02-05 12:00] VITALS: BP 111/64
[2021-02-05 16:00] VITALS: BP 137/59
[2021-02-05 20:00] VITALS: BP 136/80
[2021-02-06] VITALS: BP 136/87
[2021-02-06 08:00] VITALS: BP 115/76
[2021-02-06 12:00] VITALS: BP 152/74
[2021-02-06 16:00] VITALS: BP 113/51
[2021-02-06 20:00] VITALS: BP 154/79
[2021-02-07] VITALS: BP 136/66
[2021-02-07 08:00] VITALS: BP 127/75
[2021-02-07] MEDS ORDERED: Ipratropium Brom3 ML NEB (09:48)
[2021-02-07] MEDS ORDERED: PREDNISONE10 MG PO (09:48)
[2021-02-07] MEDS ORDERED: RIVASTIGMINE1 EACH T (09:48)
[2021-02-07] MEDS ORDERED: GUAIFENESI100 MG/51 PO (09:48)
[2021-02-15 15:08] LABS: ORGANISM ID, MOLD Final report (.)
[2021-03-17 10:08] LABS: ACID FAST CULTURE Negative (.)
== END 2021-02-07 13:39 | DRG 871 ==
LOC: ED 11:57 → EDHOLD 14:22 → 4E 14:22
PROVIDERS: Emergency Medicine; Internal Medicine; Internal Medicine Critical Care Medicine; Registered Nurse; ADMIT Family Medicine; ATTEND Family Medicine
PROC: BD1BYZZ Fluoroscopy of Mouth/Oropharynx using Other Contrast (ICD-10-PCS; 2021-02-01)
PROC: 0BC18ZZ Extirpation of Matter from Trachea, Via Natural or Artificial Opening Endoscopic (ICD-10-PCS; principal; 2021-02-02)
PROC: 0BC28ZZ Extirpation of Matter from Carina, Via Natural or Artificial Opening Endoscopic (ICD-10-PCS; 2021-02-02)
PROC: 0BC98ZZ Extirpation of Matter from Lingula Bronchus, Via Natural or Artificial Opening Endoscopic (ICD-10-PCS; 2021-02-02)
PROC: 0BC48ZZ Extirpation of Matter from Right Upper Lobe Bronchus, Via Natural or Artificial Opening Endoscopic (ICD-10-PCS; 2021-02-02)
PROC: 0BC88ZZ Extirpation of Matter from Left Upper Lobe Bronchus, Via Natural or Artificial Opening Endoscopic (ICD-10-PCS; 2021-02-02)
PROC: 0BC58ZZ Extirpation of Matter from Right Middle Lobe Bronchus, Via Natural or Artificial Opening Endoscopic (ICD-10-PCS; 2021-02-02)
PROC: 0BC38ZZ Extirpation of Matter from Right Main Bronchus, Via Natural or Artificial Opening Endoscopic (ICD-10-PCS; 2021-02-02)
PROC: 0BC78ZZ Extirpation of Matter from Left Main Bronchus, Via Natural or Artificial Opening Endoscopic (ICD-10-PCS; 2021-02-02)
PROC: 0BC68ZZ Extirpation of Matter from Right Lower Lobe Bronchus, Via Natural or Artificial Opening Endoscopic (ICD-10-PCS; 2021-02-02)
PROC: 0BCB8ZZ Extirpation of Matter from Left Lower Lobe Bronchus, Via Natural or Artificial Opening Endoscopic (ICD-10-PCS; 2021-02-02)
DX: A41.9 Sepsis, unspecified organism (principal); E43 Unspecified severe protein-calorie malnutrition; N17.0 Acute kidney failure with tubular necrosis; J15.6 Pneumonia due to other Gram-negative bacteria; G93.41 Metabolic encephalopathy; J96.21 Acute and chronic respiratory failure with hypoxia; N18.4 Chronic kidney disease, stage 4 (severe); I12.9 Hypertensive chronic kidney disease with stage 1 through stage 4 chronic kidney disease, or unspecified chronic kidney disease; D64.9 Anemia, unspecified; E87.8 Other disorders of electrolyte and fluid balance, not elsewhere classified; Z96.651 Presence of right artificial knee joint; R73.9 Hyperglycemia, unspecified; I27.20 Pulmonary hypertension, unspecified; J43.9 Emphysema, unspecified; J20.9 Acute bronchitis, unspecified; J84.10 Pulmonary fibrosis, unspecified; Z20.822 Contact with and (suspected) exposure to COVID-19; E78.00 Pure hypercholesterolemia, unspecified; F41.8 Other specified anxiety disorders; Z96.1 Presence of intraocular lens; E78.5 Hyperlipidemia, unspecified; Z90.49 Acquired absence of other specified parts of digestive tract; Z87.01 Personal history of pneumonia (recurrent); Z98.51 Tubal ligation status; Z98.42 Cataract extraction status, left eye; Z87.891 Personal history of nicotine dependence; Z80.1 Family history of malignant neoplasm of trachea, bronchus and lung; Z84.89 Family history of other specified conditions; Z79.899 Other long term (current) drug therapy; Z87.11 Personal history of peptic ulcer disease; Z68.26 Body mass index [BMI] 26.0-26.9, adult

== ENCOUNTER 2021-02-09 08:17 | Inpatient (IN) | payer MEDICARE ==
[~2021-02-09] VITALS: Ht 152.4 cm; Wt 60.4 kg
[2021-02-09] VITALS (9 sets, daily range): BP systolic 123–134; BP diastolic 50–66
[~2021-02-09 08:17] MED LIST changes: +GUAIFENESI100 MG/51 PO; +Ipratropium Brom3 ML NEB; +MELATONIN5 M1 PO; +RIVASTIGMINE1 EACH T; +VISTARIL25 MG PO
[2021-02-09 08:58] LABS: MEAN CELL VOLUME 92.9 fl (81.0-99.0); MEAN CORPUSCULAR HGB 29.8 pg (27.0-31.0); MEAN CORPUSCULAR HGB CONC 32.1 g/dl (33.0-37.0); MEAN PLATELET VOLUME 12.3 fl (9.6-12.3); NUCLEATED RED BLOOD CELL 0.2 % (0.0-0.0); PLATELET COUNT AUTOMATED 187 10*3/uL (130-400); RED BLOOD COUNT 2.25 10*6/uL (4.10-5.10); RED CELL DISTRI WIDTH 16.6 % (0-14.5); WHITE BLOOD COUNT 15.6 10*3/uL (4.8-10.8)
[2021-02-09 09:10] LABS: HEMATOCRIT 20.9 % (37.0-47.0)
[2021-02-09 09:15] LABS: ALBUMIN 2.7 gm/dl (3.1-4.5); CREATININE 1.32 mg/dL (0.55-1.02); POTASSIUM 3.2 mmol/L (3.5-5.1); TOTAL PROTEIN 5.1 gm/dL (6.4-8.2)
[2021-02-09 09:17] LABS: TROPONIN I 0.09 ng/ml (<0.045)
[2021-02-09] MEDS ORDERED: DALI500T PO (09:18)
[2021-02-09] MEDS ORDERED: VENTOLIN 02.5 MG/3 M INH (09:19)
[2021-02-09] MEDS ORDERED: ASPIRIN ADULT L81 M1 PO (09:20)
[2021-02-09 09:30] LABS: POLYCHROMASIA SLIGHT; TOTAL CELLS COUNTED 100 #CELLS
[2021-02-09 09:31] LABS: ACANTHOCYTES FEW; BURR CELLS FEW; OVALOCYTES FEW; PLATELET SUFFICIENCY NORMAL (NORMAL)
[2021-02-09 16:07] LABS: HEMATOCRIT 26.3 % (37.0-47.0); MEAN CORPUSCULAR HGB 30.1 pg (27.0-31.0); MEAN CORPUSCULAR HGB CONC 32.7 g/dl (33.0-37.0); MEAN PLATELET VOLUME 12.2 fl (9.6-12.3); PLATELET COUNT AUTOMATED 176 10*3/uL (130-400); RED BLOOD COUNT 2.86 10*6/uL (4.10-5.10); RED CELL DISTRI WIDTH 15.5 % (0-14.5); WHITE BLOOD COUNT 13.6 10*3/uL (4.8-10.8)
[2021-02-09 16:38] LABS: TOTAL CELLS COUNTED 100 #CELLS
[2021-02-09 16:39] LABS: BURR CELLS FEW
[2021-02-09 16:41] LABS: PLATELET SUFFICIENCY NORMAL (NORMAL)
[2021-02-10] VITALS: BP 115/57
[2021-02-10 06:36] LABS: HEMATOCRIT 27.8 % (37.0-47.0); MEAN CELL VOLUME 93.3 fl (81.0-99.0); MEAN CORPUSCULAR HGB 30.2 pg (27.0-31.0); MEAN CORPUSCULAR HGB CONC 32.4 g/dl (33.0-37.0); MEAN PLATELET VOLUME 11.9 fl (9.6-12.3); NUCLEATED RED BLOOD CELL 0.2 % (0.0-0.0); PLATELET COUNT AUTOMATED 147 10*3/uL (130-400); RED BLOOD COUNT 2.98 10*6/uL (4.10-5.10); RED CELL DISTRI WIDTH 16.1 % (0-14.5); WHITE BLOOD COUNT 12.2 10*3/uL (4.8-10.8)
[2021-02-10 06:47] LABS: ALBUMIN 2.5 gm/dl (3.1-4.5); CREATININE 1.36 mg/dL (0.55-1.02); FREE T4 0.85 ng/dl (0.76-1.46); POTASSIUM 3.4 mmol/L (3.5-5.1)
[2021-02-10 06:53] LABS: THYROID STIM HORMONE (HS) 3.06 uIU/ml (0.358-4.75)
[2021-02-10 07:49] LABS: OVALOCYTES FEW; PLATELET SUFFICIENCY NORMAL (NORMAL); TOTAL CELLS COUNTED 100 #CELLS
[2021-02-10 07:50] LABS: ACANTHOCYTES FEW; SCHISTOCYTES FEW
[2021-02-10 08:00] VITALS: BP 122/50
[2021-02-10 12:00] VITALS: BP 82/41
[2021-02-10 12:39] VITALS: BP 96/50
[2021-02-10 16:00] VITALS: BP 118/56
[2021-02-10 20:00] VITALS: BP 119/64
[2021-02-11] VITALS: BP 114/45
[2021-02-11 06:23] LABS: HEMATOCRIT 24.2 % (37.0-47.0); MEAN CELL VOLUME 93.4 fl (81.0-99.0); MEAN CORPUSCULAR HGB 30.1 pg (27.0-31.0); MEAN CORPUSCULAR HGB CONC 32.2 g/dl (33.0-37.0); MEAN PLATELET VOLUME 12.1 fl (9.6-12.3); NUCLEATED RED BLOOD CELL 0.4 % (0.0-0.0); PLATELET COUNT AUTOMATED 116 10*3/uL (130-400); RED BLOOD COUNT 2.59 10*6/uL (4.10-5.10); WHITE BLOOD COUNT 9.1 10*3/uL (4.8-10.8)
[2021-02-11 07:24] LABS: ALBUMIN 2.2 gm/dl (3.1-4.5); CREATININE 1.27 mg/dL (0.55-1.02); TOTAL PROTEIN 4.6 gm/dL (6.4-8.2)
[2021-02-11 07:36] LABS: PLATELET SUFFICIENCY LOW (NORMAL); ROULEAUX SLIGHT; TOTAL CELLS COUNTED 100 #CELLS
[2021-02-11 07:37] LABS: ACANTHOCYTES FEW; BURR CELLS FEW; OVALOCYTES FEW; POLYCHROMASIA SLIGHT; SCHISTOCYTES FEW
[2021-02-11 08:00] VITALS: BP 96/49
[2021-02-11 12:00] VITALS: BP 91/47
[2021-02-11 16:00] VITALS: BP 97/51
[2021-02-11 20:00] VITALS: BP 99/59
[2021-02-12] VITALS: BP 108/58
[2021-02-12 06:11] LABS: HEMATOCRIT 25.8 % (37.0-47.0); MEAN CELL VOLUME 92.8 fl (81.0-99.0); MEAN CORPUSCULAR HGB 29.5 pg (27.0-31.0); MEAN CORPUSCULAR HGB CONC 31.8 g/dl (33.0-37.0); MEAN PLATELET VOLUME 12.6 fl (9.6-12.3); NUCLEATED RED BLOOD CELL 0.3 % (0.0-0.0); PLATELET COUNT AUTOMATED 122 10*3/uL (130-400); RED BLOOD COUNT 2.78 10*6/uL (4.10-5.10); RED CELL DISTRI WIDTH 15.9 % (0-14.5); WHITE BLOOD COUNT 11.7 10*3/uL (4.8-10.8)
[2021-02-12 06:42] LABS: ALBUMIN 2.3 gm/dl (3.1-4.5); POTASSIUM 4.6 mmol/L (3.5-5.1)
[2021-02-12 06:47] LABS: CREATININE 1.31 mg/dL (0.55-1.02); TOTAL PROTEIN 5.2 gm/dL (6.4-8.2)
[2021-02-12 07:07] LABS: TOTAL CELLS COUNTED 100 #CELLS
[2021-02-12 07:08] LABS: ACANTHOCYTES FEW; OVALOCYTES FEW; PLATELET SUFFICIENCY LOW (NORMAL); ROULEAUX SLIGHT
[2021-02-12 08:00] VITALS: BP 101/58
[2021-02-12 12:00] VITALS: BP 102/53
[2021-02-12 16:00] VITALS: BP 110/51
[2021-02-12 20:00] VITALS: BP 90/50
[2021-02-13] VITALS (12 sets, daily range): BP systolic 93–130; BP diastolic 35–79
[2021-02-13 06:23] LABS: HEMATOCRIT 23.2 % (37.0-47.0); MEAN CELL VOLUME 92.1 fl (81.0-99.0); MEAN CORPUSCULAR HGB 30.2 pg (27.0-31.0); MEAN CORPUSCULAR HGB CONC 32.8 g/dl (33.0-37.0); MEAN PLATELET VOLUME 13.1 fl (9.6-12.3); NUCLEATED RED BLOOD CELL 0.2 % (0.0-0.0); PLATELET COUNT AUTOMATED 116 10*3/uL (130-400); RED BLOOD COUNT 2.52 10*6/uL (4.10-5.10); RED CELL DISTRI WIDTH 15.9 % (0-14.5); WHITE BLOOD COUNT 12.8 10*3/uL (4.8-10.8)
[2021-02-13 06:29] LABS: ALBUMIN 2.3 gm/dl (3.1-4.5); CREATININE 1.68 mg/dL (0.55-1.02); POTASSIUM 4.2 mmol/L (3.5-5.1); TOTAL PROTEIN 5.2 gm/dL (6.4-8.2)
[2021-02-13 07:24] LABS: OVALOCYTES FEW; PLATELET SUFFICIENCY LOW (NORMAL); POLYCHROMASIA SLIGHT; TOTAL CELLS COUNTED 100 #CELLS
[2021-02-13 07:25] LABS: ACANTHOCYTES FEW; BURR CELLS FEW
[2021-02-14] VITALS (9 sets, daily range): BP systolic 87–124; BP diastolic 37–58
[2021-02-14 05:17] LABS: CREATININE 1.63 mg/dL (0.55-1.02); POTASSIUM 4.4 mmol/L (3.5-5.1)
[2021-02-14 06:14] LABS: HEMATOCRIT 22.8 % (37.0-47.0); MEAN CELL VOLUME 93.8 fl (81.0-99.0); MEAN CORPUSCULAR HGB 29.6 pg (27.0-31.0); MEAN CORPUSCULAR HGB CONC 31.6 g/dl (33.0-37.0); MEAN PLATELET VOLUME 13.4 fl (9.6-12.3); NUCLEATED RED BLOOD CELL 0.2 % (0.0-0.0); PLATELET COUNT AUTOMATED 106 10*3/uL (130-400); RED BLOOD COUNT 2.43 10*6/uL (4.10-5.10); RED CELL DISTRI WIDTH 15.6 % (0-14.5); WHITE BLOOD COUNT 12.3 10*3/uL (4.8-10.8)
[2021-02-14 07:15] LABS: PLATELET SUFFICIENCY LOW (NORMAL); TOTAL CELLS COUNTED 100 #CELLS
[2021-02-14 07:16] LABS: ACANTHOCYTES FEW; OVALOCYTES FEW; POLYCHROMASIA SLIGHT
[2021-02-14 11:10] LABS: BILIRUBIN Negative (Negative); BLOOD Negative (Negative); CLARITY Clear (Clear); COLOR Yellow (Yellow); GLUCOSE Negative (Negative); KETONE Negative (Negative); LEUKO ESTERASE Negative (Negative); NITRITE Negative (Negative); PH 5.5 (4.5-8.0); UROBILINOGEN 0.2 E.U./dl (0.0-1.0)
[2021-02-14 14:16] LABS: BACTERIA 1+; MUCOUS 1+
[2021-02-15] VITALS (14 sets, daily range): BP systolic 106–152; BP diastolic 38–68
[2021-02-15 05:58] LABS: ALBUMIN 2.3 gm/dl (3.1-4.5); CREATININE 1.44 mg/dL (0.55-1.02); TOTAL PROTEIN 4.9 gm/dL (6.4-8.2)
[2021-02-15 06:09] LABS: HEMATOCRIT 21.1 % (37.0-47.0); MEAN CELL VOLUME 94.2 fl (81.0-99.0); MEAN CORPUSCULAR HGB 30.8 pg (27.0-31.0); MEAN CORPUSCULAR HGB CONC 32.7 g/dl (33.0-37.0); MEAN PLATELET VOLUME 13.2 fl (9.6-12.3); PLATELET COUNT AUTOMATED 101 10*3/uL (130-400); RED BLOOD COUNT 2.24 10*6/uL (4.10-5.10); RED CELL DISTRI WIDTH 15.6 % (0-14.5); WHITE BLOOD COUNT 11.1 10*3/uL (4.8-10.8)
[2021-02-15 07:22] LABS: OVALOCYTES FEW; PLATELET SUFFICIENCY LOW (NORMAL); TOTAL CELLS COUNTED 100 #CELLS
[2021-02-15 12:30] LABS: MEAN CORPUSCULAR HGB 29.4 pg (27.0-31.0); MEAN CORPUSCULAR HGB CONC 32.6 g/dl (33.0-37.0); MEAN PLATELET VOLUME 12.5 fl (9.6-12.3); NUCLEATED RED BLOOD CELL 0.2 % (0.0-0.0); PLATELET COUNT AUTOMATED 92 10*3/uL (130-400); RED BLOOD COUNT 2.99 10*6/uL (4.10-5.10); RED CELL DISTRI WIDTH 15.6 % (0-14.5); WHITE BLOOD COUNT 11.4 10*3/uL (4.8-10.8)
[2021-02-15 13:02] LABS: MEAN CELL VOLUME 90.3 fl (81.0-99.0)
[2021-02-15 13:05] LABS: TOTAL CELLS COUNTED 100 #CELLS
[2021-02-15 13:06] LABS: BURR CELLS FEW; OVALOCYTES FEW; PLATELET SUFFICIENCY LOW (NORMAL)
[2021-02-16] VITALS: BP 133/59
[2021-02-16 05:44] LABS: CREATININE 1.34 mg/dL (0.55-1.02); POTASSIUM 4.5 mmol/L (3.5-5.1)
[2021-02-16 06:31] LABS: HEMATOCRIT 28.2 % (37.0-47.0); MEAN CELL VOLUME 91.3 fl (81.0-99.0); MEAN CORPUSCULAR HGB 29.4 pg (27.0-31.0); MEAN CORPUSCULAR HGB CONC 32.3 g/dl (33.0-37.0); MEAN PLATELET VOLUME 12.7 fl (9.6-12.3); NUCLEATED RED BLOOD CELL 0.2 % (0.0-0.0); PLATELET COUNT AUTOMATED 87 10*3/uL (130-400); RED BLOOD COUNT 3.09 10*6/uL (4.10-5.10); RED CELL DISTRI WIDTH 16.8 % (0-14.5); WHITE BLOOD COUNT 8.9 10*3/uL (4.8-10.8)
[2021-02-16 06:59] LABS: BURR CELLS FEW; TOTAL CELLS COUNTED 100 #CELLS
[2021-02-16 07:00] LABS: PLATELET SUFFICIENCY LOW (NORMAL)
[2021-02-16 08:00] VITALS: BP 129/62
[2021-02-16 12:00] VITALS: BP 120/64
[2021-02-16 16:00] VITALS: BP 116/58
[2021-02-16 20:00] VITALS: BP 118/62
[2021-02-17] VITALS: BP 121/54
[2021-02-17 04:37] LABS: MEAN CELL VOLUME 90.9 fl (81.0-99.0); MEAN CORPUSCULAR HGB 29.4 pg (27.0-31.0); MEAN CORPUSCULAR HGB CONC 32.3 g/dl (33.0-37.0); MEAN PLATELET VOLUME 12.4 fl (9.6-12.3); NUCLEATED RED BLOOD CELL 0.3 % (0.0-0.0); PLATELET COUNT AUTOMATED 78 10*3/uL (130-400); RED BLOOD COUNT 2.86 10*6/uL (4.10-5.10); RED CELL DISTRI WIDTH 16.5 % (0-14.5); WHITE BLOOD COUNT 7.8 10*3/uL (4.8-10.8)
[2021-02-17 04:53] LABS: CREATININE 1.25 mg/dL (0.55-1.02); POTASSIUM 4.4 mmol/L (3.5-5.1)
[2021-02-17 06:19] LABS: PLATELET SUFFICIENCY LOW (NORMAL); TOTAL CELLS COUNTED 100 #CELLS
[2021-02-17 08:00] VITALS: BP 122/57
[2021-02-17 11:04] LABS: HEMATOCRIT 27.7 % (37.0-47.0); MEAN CELL VOLUME 91.1 fl (81.0-99.0); MEAN CORPUSCULAR HGB 29.6 pg (27.0-31.0); MEAN CORPUSCULAR HGB CONC 32.5 g/dl (33.0-37.0); MEAN PLATELET VOLUME 12.8 fl (9.6-12.3); PLATELET COUNT AUTOMATED 80 10*3/uL (130-400); RED BLOOD COUNT 3.04 10*6/uL (4.10-5.10); RED CELL DISTRI WIDTH 16.5 % (0-14.5); WHITE BLOOD COUNT 10.5 10*3/uL (4.8-10.8)
[2021-02-17 11:20] LABS: ALBUMIN 2.2 gm/dl (3.1-4.5); CREATININE 1.21 mg/dL (0.55-1.02); POTASSIUM 4.3 mmol/L (3.5-5.1)
[2021-02-17 11:28] LABS: PLATELET SUFFICIENCY LOW (NORMAL); TOTAL CELLS COUNTED 100 #CELLS
[2021-02-17 11:29] LABS: OVALOCYTES FEW; SCHISTOCYTES FEW
[2021-02-17 12:00] VITALS: BP 88/52
[2021-02-17 13:10] VITALS: BP 98/48
[2021-02-17 16:00] VITALS: BP 101/51
[2021-02-17 20:00] VITALS: BP 110/65
[2021-02-18] VITALS: BP 100/42
[2021-02-18 05:51] LABS: CREATININE 1.14 mg/dL (0.55-1.02); POTASSIUM 4.1 mmol/L (3.5-5.1)
[2021-02-18 08:00] VITALS: BP 113/50
[2021-02-18 12:00] VITALS: BP 94/51
[2021-02-18 16:00] VITALS: BP 108/82
[2021-02-18 20:00] VITALS: BP 116/46
[2021-02-19] VITALS: BP 114/61
[2021-02-19 06:30] LABS: BUN 31 mg/dl (7-24); CHLORIDE 116 mmol/L (98-107); CREATININE 1.08 mg/dL (0.55-1.02); POTASSIUM 3.9 mmol/L (3.5-5.1); SODIUM 146 mmol/L (136-145)
[2021-02-19 08:00] VITALS: BP 109/51
[2021-02-19 12:00] VITALS: BP 115/58
[2021-02-19 16:00] VITALS: BP 109/50
[2021-02-19 20:00] VITALS: BP 109/57
[2021-02-20] VITALS: BP 113/58
[2021-02-20 06:09] LABS: HEMATOCRIT 23.6 % (37.0-47.0); MEAN CELL VOLUME 93.3 fl (81.0-99.0); MEAN CORPUSCULAR HGB 29.2 pg (27.0-31.0); MEAN CORPUSCULAR HGB CONC 31.4 g/dl (33.0-37.0); MEAN PLATELET VOLUME 12.4 fl (9.6-12.3); NUCLEATED RED BLOOD CELL 0.5 % (0.0-0.0); PLATELET COUNT AUTOMATED 104 10*3/uL (130-400); RED BLOOD COUNT 2.53 10*6/uL (4.10-5.10); RED CELL DISTRI WIDTH 16.6 % (0-14.5); WHITE BLOOD COUNT 7.8 10*3/uL (4.8-10.8)
[2021-02-20 06:26] LABS: CREATININE 1.19 mg/dL (0.55-1.02); POTASSIUM 3.9 mmol/L (3.5-5.1)
[2021-02-20 06:53] LABS: PLATELET SUFFICIENCY LOW (NORMAL); SCHISTOCYTES FEW; TOTAL CELLS COUNTED 100 #CELLS
[2021-02-20 08:00] VITALS: BP 113/69
[2021-02-20 12:00] VITALS: BP 119/64
[2021-02-20 16:00] VITALS: BP 126/69
[2021-02-20 20:00] VITALS: BP 109/77
[2021-02-21 00:03] VITALS: BP 99/44
[2021-02-21 05:56] LABS: CREATININE 1.09 mg/dL (0.55-1.02); POTASSIUM 3.6 mmol/L (3.5-5.1)
[2021-02-21 06:03] LABS: HEMATOCRIT 22.6 % (37.0-47.0); MEAN CELL VOLUME 93.8 fl (81.0-99.0); MEAN CORPUSCULAR HGB 29.5 pg (27.0-31.0); MEAN CORPUSCULAR HGB CONC 31.4 g/dl (33.0-37.0); MEAN PLATELET VOLUME 12.5 fl (9.6-12.3); NUCLEATED RED BLOOD CELL 0.3 % (0.0-0.0); PLATELET COUNT AUTOMATED 117 10*3/uL (130-400); RED BLOOD COUNT 2.41 10*6/uL (4.10-5.10); RED CELL DISTRI WIDTH 16.7 % (0-14.5); WHITE BLOOD COUNT 7.8 10*3/uL (4.8-10.8)
[2021-02-21 07:07] LABS: TOTAL CELLS COUNTED 100 #CELLS
[2021-02-21 07:08] LABS: PLATELET SUFFICIENCY LOW (NORMAL)
[2021-02-21 08:00] VITALS: BP 110/55
[2021-02-21 12:00] VITALS: BP 114/75
[2021-02-21 16:00] VITALS: BP 122/58
[2021-02-21 20:00] VITALS: BP 98/50
[2021-02-22] VITALS (14 sets, daily range): BP systolic 92–125; BP diastolic 39–85
[2021-02-22 06:17] LABS: HEMATOCRIT 21.3 % (37.0-47.0); MEAN CELL VOLUME 93.4 fl (81.0-99.0); MEAN CORPUSCULAR HGB 29.4 pg (27.0-31.0); MEAN CORPUSCULAR HGB CONC 31.5 g/dl (33.0-37.0); MEAN PLATELET VOLUME 12.2 fl (9.6-12.3); NUCLEATED RED BLOOD CELL 0.3 % (0.0-0.0); PLATELET COUNT AUTOMATED 143 10*3/uL (130-400); RED BLOOD COUNT 2.28 10*6/uL (4.10-5.10); RED CELL DISTRI WIDTH 16.7 % (0-14.5); WHITE BLOOD COUNT 8.6 10*3/uL (4.8-10.8)
[2021-02-22 06:27] LABS: CREATININE 1.28 mg/dL (0.55-1.02); POTASSIUM 3.9 mmol/L (3.5-5.1)
[2021-02-22 06:57] LABS: PLATELET SUFFICIENCY NORMAL (NORMAL); TOTAL CELLS COUNTED 100 #CELLS
[2021-02-22 17:16] LABS: HEMATOCRIT 29.7 % (37.0-47.0); MEAN CORPUSCULAR HGB 29.8 pg (27.0-31.0); MEAN CORPUSCULAR HGB CONC 33.3 g/dl (33.0-37.0); MEAN PLATELET VOLUME 12.2 fl (9.6-12.3); NUCLEATED RED BLOOD CELL 0.1 10*3/uL (0.0-0.0); NUCLEATED RED BLOOD CELL 0.5 % (0.0-0.0); PLATELET COUNT AUTOMATED 160 10*3/uL (130-400); RED BLOOD COUNT 3.32 10*6/uL (4.10-5.10); RED CELL DISTRI WIDTH 15.7 % (0-14.5); WHITE BLOOD COUNT 9.9 10*3/uL (4.8-10.8)
[2021-02-22 17:21] LABS: MEAN CELL VOLUME 89.5 fl (81.0-99.0)
[2021-02-22 18:08] LABS: PLATELET SUFFICIENCY NORMAL (NORMAL); TOTAL CELLS COUNTED 100 #CELLS
[2021-02-23] VITALS: BP 105/46
[2021-02-23 06:59] LABS: HEMATOCRIT 26.7 % (37.0-47.0); MEAN CELL VOLUME 88.7 fl (81.0-99.0); MEAN CORPUSCULAR HGB 29.6 pg (27.0-31.0); MEAN CORPUSCULAR HGB CONC 33.3 g/dl (33.0-37.0); MEAN PLATELET VOLUME 12.1 fl (9.6-12.3); NUCLEATED RED BLOOD CELL 0.4 % (0.0-0.0); PLATELET COUNT AUTOMATED 166 10*3/uL (130-400); RED BLOOD COUNT 3.01 10*6/uL (4.10-5.10); RED CELL DISTRI WIDTH 16.3 % (0-14.5); WHITE BLOOD COUNT 10.2 10*3/uL (4.8-10.8)
[2021-02-23 07:44] LABS: BASOPHILS 1 % (0-1); PLATELET SUFFICIENCY NORMAL (NORMAL); POLYCHROMASIA SLIGHT; TOTAL CELLS COUNTED 100 #CELLS
[2021-02-23 08:00] VITALS: BP 116/67
[2021-02-23] MEDS ORDERED: PANTOPRAZOLE SO40 MG PO (11:48)
[2021-02-23] MEDS ORDERED: LOPRESSOR25 MG PO (11:48)
[2021-02-23] MEDS ORDERED: DULOXETINE HCL30 MG PO (11:58)
[2021-02-23 12:00] VITALS: BP 106/60
[2021-02-23] MEDS ORDERED: HYDROCODONE-AC1 EAC1 PO (16:06)
== END 2021-02-23 12:55 | DRG 377 ==
LOC: ED 08:17 → EDHOLD 08:35 → 4E 08:35 → 5E 08:35 → ICCU 02-13 13:54 → 4E 02-16 12:41
PROVIDERS: Emergency Medicine; Internal Medicine; Social Worker Clinical; Student in an Organized Health Care Education/Training Program; ADMIT Internal Medicine; ATTEND Internal Medicine
PROC: 30233N1 Transfusion of Nonautologous Red Blood Cells into Peripheral Vein, Percutaneous Approach (ICD-10-PCS; principal; 2021-02-12)
DX: K25.0 Acute gastric ulcer with hemorrhage (principal); R65.11 Systemic inflammatory response syndrome (SIRS) of non-infectious origin with acute organ dysfunction; E43 Unspecified severe protein-calorie malnutrition; J96.21 Acute and chronic respiratory failure with hypoxia; I24.8 Other forms of acute ischemic heart disease; N18.4 Chronic kidney disease, stage 4 (severe); E87.0 Hyperosmolality and hypernatremia; D62 Acute posthemorrhagic anemia; F33.9 Major depressive disorder, recurrent, unspecified; J44.9 Chronic obstructive pulmonary disease, unspecified; Z20.822 Contact with and (suspected) exposure to COVID-19; G31.84 Mild cognitive impairment of uncertain or unknown etiology; Z96.651 Presence of right artificial knee joint; I48.0 Paroxysmal atrial fibrillation; I12.9 Hypertensive chronic kidney disease with stage 1 through stage 4 chronic kidney disease, or unspecified chronic kidney disease; E87.6 Hypokalemia; F41.8 Other specified anxiety disorders; R74.01 Elevation of levels of liver transaminase levels; E87.8 Other disorders of electrolyte and fluid balance, not elsewhere classified; Z68.22 Body mass index [BMI] 22.0-22.9, adult; Z90.49 Acquired absence of other specified parts of digestive tract; Z98.51 Tubal ligation status; Z87.891 Personal history of nicotine dependence; Z80.1 Family history of malignant neoplasm of trachea, bronchus and lung; Z79.82 Long term (current) use of aspirin; Z79.899 Other long term (current) drug therapy

== ENCOUNTER 2021-02-24 21:08 | Inpatient (IN) | payer MEDICARE ==
[~2021-02-24] VITALS: Ht 165.1 cm; Wt 60.4 kg
[~2021-02-24 21:08] MED LIST changes: +DALI500T PO; +DULOXETINE HCL30 MG PO; +HYDROCODONE-AC1 EAC1 PO; +LOPRESSOR25 MG PO; +VENTOLIN 02.5 MG/3 M INH
[2021-02-24 21:15] VITALS: BP 170/66
[2021-02-24 21:38] LABS: HEMATOCRIT 27.8 % (37.0-47.0); MEAN CELL VOLUME 90.6 fl (81.0-99.0); MEAN CORPUSCULAR HGB 29.6 pg (27.0-31.0); MEAN CORPUSCULAR HGB CONC 32.7 g/dl (33.0-37.0); MEAN PLATELET VOLUME 11.8 fl (9.6-12.3); NUCLEATED RED BLOOD CELL 0.4 % (0.0-0.0); PLATELET COUNT AUTOMATED 189 10*3/uL (130-400); RED BLOOD COUNT 3.07 10*6/uL (4.10-5.10); RED CELL DISTRI WIDTH 16.1 % (0-14.5); WHITE BLOOD COUNT 10.9 10*3/uL (4.8-10.8)
[2021-02-24 21:50] LABS: VENOUS PH 7.351 (7.37-7.45)
[2021-02-24 21:58] LABS: ALBUMIN 1.9 gm/dl (3.1-4.5); CREATININE 1.29 mg/dL (0.55-1.02); POTASSIUM 3.7 mmol/L (3.5-5.1); TOTAL PROTEIN 5.2 gm/dL (6.4-8.2); TROPONIN I 0.027 ng/ml (<0.045)
[2021-02-24 21:59] LABS: BURR CELLS MODERATE; PLATELET SUFFICIENCY NORMAL (NORMAL); TOTAL CELLS COUNTED 100 #CELLS
[2021-02-24 22:04] LABS: THYROID STIM HORMONE (HS) 4.34 uIU/ml (0.358-4.75)
[2021-02-24 22:29] VITALS: BP 152/86
[2021-02-25] VITALS (7 sets, daily range): BP systolic 90–156; BP diastolic 60–78
[2021-02-25 03:54] LABS: HEMATOCRIT 27.4 % (37.0-47.0); MEAN CELL VOLUME 91.9 fl (81.0-99.0); MEAN CORPUSCULAR HGB 29.5 pg (27.0-31.0); MEAN CORPUSCULAR HGB CONC 32.1 g/dl (33.0-37.0); MEAN PLATELET VOLUME 12.1 fl (9.6-12.3); NUCLEATED RED BLOOD CELL 0.3 % (0.0-0.0); PLATELET COUNT AUTOMATED 191 10*3/uL (130-400); RED BLOOD COUNT 2.98 10*6/uL (4.10-5.10); RED CELL DISTRI WIDTH 16.1 % (0-14.5); WHITE BLOOD COUNT 10.9 10*3/uL (4.8-10.8)
[2021-02-25 04:28] LABS: ALBUMIN 1.9 gm/dl (3.1-4.5); BASOPHILS 1 % (0-1); CREATININE 1.2 mg/dL (0.55-1.02); POTASSIUM 3.5 mmol/L (3.5-5.1); TOTAL CELLS COUNTED 100 #CELLS; TOTAL PROTEIN 5.3 gm/dL (6.4-8.2)
[2021-02-25 04:29] LABS: BURR CELLS MODERATE; PLATELET SUFFICIENCY NORMAL (NORMAL)
[2021-02-25 13:46] LABS: HEMATOCRIT 27.8 % (37.0-47.0); MEAN CELL VOLUME 90.6 fl (81.0-99.0); MEAN CORPUSCULAR HGB CONC 33.1 g/dl (33.0-37.0); MEAN PLATELET VOLUME 12.2 fl (9.6-12.3); NUCLEATED RED BLOOD CELL 0.1 10*3/uL (0.0-0.0); NUCLEATED RED BLOOD CELL 0.4 % (0.0-0.0); PLATELET COUNT AUTOMATED 219 10*3/uL (130-400); RED BLOOD COUNT 3.07 10*6/uL (4.10-5.10); RED CELL DISTRI WIDTH 16.1 % (0-14.5); WHITE BLOOD COUNT 17.3 10*3/uL (4.8-10.8)
[2021-02-25 14:02] LABS: ACT PARTIAL THROMBO TIME 39.3 SECONDS (20.0-32.1); INTERNATIONAL NORM RATIO 1.1 (2.0-3.5)
[2021-02-25 14:08] LABS: PLATELET SUFFICIENCY NORMAL (NORMAL); TOTAL CELLS COUNTED 100 #CELLS
[2021-02-26] VITALS: BP 109/62
[2021-02-26 06:44] LABS: MEAN CELL VOLUME 90.6 fl (81.0-99.0); MEAN CORPUSCULAR HGB 29.5 pg (27.0-31.0); MEAN CORPUSCULAR HGB CONC 32.6 g/dl (33.0-37.0); NUCLEATED RED BLOOD CELL 0.1 10*3/uL (0.0-0.0); NUCLEATED RED BLOOD CELL 0.6 % (0.0-0.0); PLATELET COUNT AUTOMATED 195 10*3/uL (130-400); RED BLOOD COUNT 2.54 10*6/uL (4.10-5.10); RED CELL DISTRI WIDTH 16.2 % (0-14.5); WHITE BLOOD COUNT 16.2 10*3/uL (4.8-10.8)
[2021-02-26 07:19] LABS: ALBUMIN 1.8 gm/dl (3.1-4.5); CREATININE 1.51 mg/dL (0.55-1.02); POTASSIUM 3.3 mmol/L (3.5-5.1); TOTAL PROTEIN 4.9 gm/dL (6.4-8.2)
[2021-02-26 07:25] LABS: TOTAL CELLS COUNTED 100 #CELLS
[2021-02-26 07:28] LABS: PLATELET SUFFICIENCY NORMAL (NORMAL)
[2021-02-26 08:00] VITALS: BP 70/44; BP 79/34
[2021-02-26 12:00] VITALS: BP 108/54
[2021-02-26 15:24] LABS: CREATININE 1.61 mg/dL (0.55-1.02); POTASSIUM 3.2 mmol/L (3.5-5.1)
[2021-02-26 16:00] VITALS: BP 96/58
== END 2021-02-26 16:48 | disposition hospice, inpatient (51) | DRG 177 ==
LOC: ED 21:08 → EDHOLD 23:08 → 5E 23:08
PROVIDERS: Emergency Medicine; Family Medicine; Internal Medicine; ADMIT Student in an Organized Health Care Education/Training Program; ATTEND Student in an Organized Health Care Education/Training Program
DX: J69.0 Pneumonitis due to inhalation of food and vomit (principal); J96.20 Acute and chronic respiratory failure, unspecified whether with hypoxia or hypercapnia; E87.0 Hyperosmolality and hypernatremia; E44.0 Moderate protein-calorie malnutrition; E16.2 Hypoglycemia, unspecified; Z96.651 Presence of right artificial knee joint; I11.0 Hypertensive heart disease with heart failure; I50.9 Heart failure, unspecified; I48.91 Unspecified atrial fibrillation; D64.9 Anemia, unspecified; Z51.5 Encounter for palliative care; R74.01 Elevation of levels of liver transaminase levels; F41.8 Other specified anxiety disorders; E78.5 Hyperlipidemia, unspecified; Z90.49 Acquired absence of other specified parts of digestive tract; Z98.51 Tubal ligation status; Z87.891 Personal history of nicotine dependence; Z80.1 Family history of malignant neoplasm of trachea, bronchus and lung; Z79.51 Long term (current) use of inhaled steroids; Z68.22 Body mass index [BMI] 22.0-22.9, adult

== ENCOUNTER 2021-02-26 16:57 | Inpatient (IN) | payer OTHER, MEDICARE ==
[~2021-02-26] VITALS: Ht 165.1 cm; Wt 60.4 kg
[2021-02-26 17:13] VITALS: BP 69/41
[2021-02-27 12:00] VITALS: BP 100/59
[2021-02-27 16:00] VITALS: BP 94/70
[2021-02-27 20:00] VITALS: BP 76/30
[2021-02-28] VITALS: BP 76/32
== END 2021-03-01 05:28 | DRG 291 ==
LOC: 5E 16:57
PROVIDERS: ADMIT Student in an Organized Health Care Education/Training Program; ATTEND Student in an Organized Health Care Education/Training Program
DX: I13.0 Hypertensive heart and chronic kidney disease with heart failure and stage 1 through stage 4 chronic kidney disease, or unspecified chronic kidney disease (principal); J18.9 Pneumonia, unspecified organism; K25.4 Chronic or unspecified gastric ulcer with hemorrhage; J96.20 Acute and chronic respiratory failure, unspecified whether with hypoxia or hypercapnia; E87.0 Hyperosmolality and hypernatremia; E44.0 Moderate protein-calorie malnutrition; M87.051 Idiopathic aseptic necrosis of right femur; N18.4 Chronic kidney disease, stage 4 (severe); M87.052 Idiopathic aseptic necrosis of left femur; I50.9 Heart failure, unspecified; Z51.5 Encounter for palliative care; Z66 Do not resuscitate; I48.91 Unspecified atrial fibrillation; D64.9 Anemia, unspecified; E16.2 Hypoglycemia, unspecified; F41.8 Other specified anxiety disorders; J44.9 Chronic obstructive pulmonary disease, unspecified; Z20.822 Contact with and (suspected) exposure to COVID-19; Z68.22 Body mass index [BMI] 22.0-22.9, adult; Z79.899 Other long term (current) drug therapy